=== PATIENT | female | born 1975 | race Caucasian/White ===

== ENCOUNTER 2017-08-24 21:24 | Emergency (ER) | payer MEDICAID ==
[2017-08-24] MEDS ORDERED: SODIUM CHLORIDE 0.9% 1,000 ML IV ONE (21:37)
[2017-08-24 21:54] LABS: BASOPHILS % (AUTO) 0.4 %; EOSINOPHILS # (AUTO) 0.2 10^3/uL (0.0-0.7); EOSINOPHILS % (AUTO) 1.7 %; LYMPHOCYTES # (AUTO) 2.2 10^3/uL (1.5-3.5); LYMPHOCYTES % (AUTO) 17.8 %; MEAN CORPUSCULAR HEMOGLOBIN 29.8 pg (27.0-31.0); MEAN CORPUSCULAR HGB CONC 32.2 g/dL (32.0-36.0); MEAN CORPUSCULAR VOLUME 92.6 fL (81.0-99.0); MEAN PLATELET VOLUME 7.3 fL (7.9-10.8); MONOCYTES # (AUTO) 0.8 10^3/uL (0.0-1.0); MONOCYTES % (AUTO) 6.8 %; NEUTROPHILS # (AUTO) 8.9 10^3/uL (1.5-6.6); NEUTROPHILS % (AUTO) 73.3 %; PLT - PLATELET COUNT 339 10^3/uL (130-450); RED BLOOD COUNT 4.68 10^6/uL (4.20-5.40); RED CELL DISTRIBUTION WIDTH 14.1 % (12.0-15.0); WHITE BLOOD COUNT 12.2 x10^3/uL (4.8-10.8)
--- NOTE | 2017-08-24 21:54 | ED Physician Documentation ---
PD HPI SEIZURE - Stated complaint Stated Complaint: SEIZURE - Chief complaint Chief Complaint: Neuro - History obtained from History obtained from: Patient - History of Present Illness Timing - onset: Today (ton) Witnessed: Witnessed Number of seizures: Single, Lasted - seconds Description of seizure activity: Other (no witnesses to seizure are present in ED. patient says she was told she stiffened all extremities and body , was red in the face, and unresponsive.) Injury during seizure: None Associated symptoms: None History of seizures: No: Known seizure disorder, Prior EtOH wdrawal sz, Prior TBI Contributing factors: Benzo withdrawal (possibly: patient says she takes ativan daily and just restarted today after missing several days). No: EtOH withdrawal (denies regular/heavy drinking) Similar symptoms before: Has not had sx before Recently seen: Not recently seen - Additional information Additional information: Patient was [facility], had a dose of her prescribed Vicodin earlier as well as a dose of Ativan. She said she used marijuana, Which she has used before without ill effect. patient had no predrome, awoke on the floor. patients friends told her that she appeared to have had a seizure. Patient says the description was that her body and extremities all stiffened, that she turned red in the face, and was unresponsive for approximately 30 seconds. Patient says she feels she is only missing memory of approximately one or two minutes. in Emergency department she says she feels fine except for being tired. Review of Systems Constitutional: reports: Reviewed and negative Eyes: reports: Reviewed and negative Cardiac: reports: Reviewed and negative Respiratory: reports: Reviewed and negative GI: reports: Reviewed and negative Skin: reports: Lesions (scalp (from picking, when I get anxious, per patient)) Neurologic: reports: Seizure (possible), LOC. denies: Generalized weakness, Focal weakness, Numbness, Headache PD PAST MEDICAL HISTORY - Past Medical History Past Medical History: Yes - Past Surgical History Past Surgical History: Yes HEENT: Tonsil/Adenoidectomy - Present Medications Home Medications: Ambulatory Orders Medication Instructions Recorded Confirmed Mupirocin Calcium [Bactroban] 1 film TP BID #1 cream..g. 08/25/17 - Allergies Allergies/Adverse Reactions: Allergies Allergy/AdvReac Type Severity Reaction Status Date / Time latex AdvReac Itching Verified 05/01/18 21:48 - Social History Does the pt smoke?: Yes Smoking Status: Current every day smoker Does the pt drink ETOH?: Yes Does the pt have substance abuse?: Yes Substance Use and Type: Marijuana - Immunizations Immunizations are current?: Yes - POLST Patient has POLST: No PD ED PE NORMAL - Vitals Vital signs reviewed: Yes - General General: Alert and oriented X 3, No acute distress, Well developed/nourished - HEENT HEENT: Atraumatic, PERRL, EOMI, Moist mucous membranes, Pharynx benign (no tongue bite/echymosis) - Neck Neck: Supple, no meningeal sign - Cardiac Cardiac: RRR, No murmur - Respiratory Respiratory: No respiratory distress, Clear bilaterally - Abdomen Abdomen: Soft, Non tender - Derm Derm: Normal color, Warm and dry - Extremities Extremities: No deformity, Normal ROM s pain - Neuro Neuro: Alert and oriented X 3, 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, No motor deficit, No sensory deficit, Normal speech Results - Vitals Vitals: Oxygen O2 Source Room air - EKG (time done) No standard instances Rate: Tachy (126) Rhythm: Sinus tachycardia [place]: Normal Intervals: Normal PA QRS: Normal Ischemia: Normal ST segments - Labs Labs: Laboratory Tests 08/24/17 08/24/17 08/24/17 21:47 21:47 22:55 WBC 12.2 H RBC 4.68 Hgb 14.0 Hct 43.4 MCV 92.6 MCH 29.8 MCHC 32.2 RDW 14.1 Plt Count 339 MPV 7.3 L Neut # 8.9 H Lymph # 2.2 [place] # 0.8 Eos # 0.2 Baso # 0.0 Absolute Nucleated RBC 0.00 Nucleated RBC % 0.0 Sodium 133 L Potassium 3.5 Chloride 97 L Carbon Dioxide 27 Anion Gap 9.0 BUN 10 Creatinine 0.7 Estimated GFR (MDRD) 91 Glucose 114 H Calcium 9.2 Total Bilirubin 0.2 AST 28 ALT 41 Alkaline Phosphatase 61 Total Protein 7.8 Albumin 4.5 Globulin 3.3 Albumin/Globulin Ratio 1.4 Lipase 21 L Urine Color Urine Clarity Urine pH Ur Specific [place] Urine Protein Urine Glucose (UA) Urine Ketones Urine Occult Blood Urine Nitrite Urine Bilirubin Urine Urobilinogen Ur Leukocyte Esterase Ur Microscopic Review Urine Culture Comments Urine HCG, Qual Salicylates < 6.0 Urine Opiates Screen POSITIVE H Ur Oxycodone Screen NEGATIVE Urine Methadone Screen NEGATIVE Ur Propoxyphene Screen NEGATIVE Acetaminophen < 10 L Ur Barbiturates Screen NEGATIVE Ur Tricyclics Screen NEGATIVE Ur Phencyclidine Scrn NEGATIVE Ur Amphetamine Screen NEGATIVE U Methamphetamines Scrn NEGATIVE U Benzodiazepines Scrn POSITIVE H Urine Cocaine Screen NEGATIVE U Cannabinoids Screen NEGATIVE Ethyl Alcohol < 5.0 08/24/17 22:55 WBC RBC Hgb Hct MCV MCH MCHC RDW Plt Count MPV Neut # Lymph # [place] # Eos # Baso # Absolute Nucleated RBC Nucleated RBC % Sodium Potassium Chloride Carbon Dioxide Anion Gap BUN Creatinine Estimated GFR (MDRD) Glucose Calcium Total Bilirubin AST ALT Alkaline Phosphatase Total Protein Albumin Globulin Albumin/Globulin Ratio Lipase Urine Color LT. YELLOW Urine Clarity CLEAR Urine pH 5.5 Ur Specific [place] <=1.005 Urine Protein NEGATIVE Urine Glucose (UA) NEGATIVE Urine Ketones NEGATIVE Urine Occult Blood TRACE-INTA Urine Nitrite NEGATIVE Urine Bilirubin NEGATIVE Urine Urobilinogen 0.2 (NORMAL) Ur Leukocyte Esterase NEGATIVE Ur Microscopic Review NOT INDICATED Urine Culture Comments NOT INDICATED Urine HCG, Qual NEGATIVE Salicylates Urine Opiates Screen Ur Oxycodone Screen Urine Methadone Screen Ur Propoxyphene Screen Acetaminophen Ur Barbiturates Screen Ur Tricyclics Screen Ur Phencyclidine Scrn Ur Amphetamine Screen U Methamphetamines Scrn U Benzodiazepines Scrn Urine Cocaine Screen U Cannabinoids Screen Ethyl Alcohol - Rads (name of study) CT head Radiology: Prelim report reviewed, See rad report PD MEDICAL DECISION MAKING - ED course Complexity details: reviewed results, re-evaluated patient, considered differential, d/w patient, d/w family ED course: unremarkable testing and no results that might explain tonights event. no tongue bite and rapid recovery time would suggest against a seizure (patient believes she only is missing few minutes from her memory of tonight), although her time perception could be off because of marijuana, vicodin, and ativan. no cardiac dysrhythmia on EKG or monitor. syncope also considered although no hypotension in ED. I encouraged patient to see PMD for follow-up, might benefit from EEG. Departure - Departure Disposition: 01 Home, Self Care Clinical Impression: Syncope Qualifiers: Syncope type: unspecified Qualified Code(s): R55 - Syncope and collapse Condition: Good Instructions: ED Fainting Unkn Cause, ED Seizure New Onset Unk Cause Follow-Up: Smitha Nickerson PA-C [Primary Care Provider] - (Call to arrange for next available appointment) Prescriptions: Mupirocin Calcium [Bactroban] 1 film TP BID #1 cream..g. Discharge Date/Time: 08/25/17 01:53
[2017-08-24 22:09] LABS: ALBUMIN 4.5 g/dL (3.2-5.5); ALBUMIN/GLOBULIN RATIO 1.4 (1.0-2.2); ALKALINE PHOSPHATASE 61 IU/L (42-121); ALT ALANINE AMINOTRANSFERASE 41 IU/L (10-60); AST ASPARTATE AMINOTRANSFERASE 28 IU/L (10-42); BILIRUBIN,TOTAL 0.2 mg/dL (0.2-1.0); BUN - BLOOD UREA NITROGEN 10 mg/dL (6-20); CALCIUM 9.2 mg/dL (8.5-10.3); CARBON DIOXIDE - CO2 27 mmol/L (21-32); CHLORIDE 97 mmol/L (101-111); CREATININE 0.7 mg/dL (0.4-1.0); GFR - MDRD 91 (>89); GLUCOSE 114 mg/dL (70-100); LIPASE 21 U/L (22-51); SALICYLATE < 6.0 mg/dL; SODIUM 133 mmol/L (135-145); TOTAL PROTEIN 7.8 g/dL (6.7-8.2)
[2017-08-24 22:12] LABS: ACETAMINOPHEN < 10 ug/mL (10-30)
[2017-08-24 23:03] LABS: MUDS CUTOFF CONCENTRATIONS CUTOFF CONC BELOW:
[2017-08-24 23:10] LABS: BILIRUBIN,URINE NEGATIVE (NEGATIVE); GLUCOSE, URINE (UA) NEGATIVE (NEGATIVE); KETONES,URINE (UA) NEGATIVE (NEGATIVE); LEUKOCYTE ESTERASE, URINE NEGATIVE (NEGATIVE); NITRITE,URINE NEGATIVE (NEGATIVE); OCCULT BLOOD,URINE TRACE-INTA (NEGATIVE); PH,URINE 5.5 PH (5.0-7.5); PROTEIN,URINE NEGATIVE (NEGATIVE); UROBILINOGEN,URINE 0.2 (NORMAL) E.U./dL (NORMAL)
--- NOTE | 2017-08-24 23:12 | CT Preliminary Report ---
Exam: CT HEAD W/O IMPRESSION: Normal head CT. [facility] SITE ID: [id number]
--- NOTE | 2017-08-24 23:13 | CT Report ---
EXAM: CT HEAD EXAM DATE: 08/24/2017 10:58 PM. CLINICAL HISTORY: Loss of consciousness. Seizure. COMPARISON: None. TECHNIQUE: Multiaxial CT images were obtained from the foramen magnum to the vertex. Reformats: Coron al. IV contrast: None. In accordance with CT protocol optimization, one or more of the following dose reduction techniques w ere utilized for this exam: automated exposure control, adjustment of mA and/or KV based on patient s ize, or use of iterative reconstructive technique. FINDINGS: Parenchyma: No intraparenchymal hemorrhage. No evidence of mass, midline shift, or CT findings of inf arction. Bear-white differentiation is distinct. Extraaxial Spaces: Normal for age. No subdural or epidural collections identified. Ventricles: Normal in size and position. Sinuses and Orbits: Imaged paranasal sinuses, orbits, and mastoids show no significant abnormality. Bones: No evidence of fracture or calvarial defect. Other: None. IMPRESSION: Normal head CT. [facility] Referring Provider Line: [phone] SITE ID: [id number]
[2017-08-24 23:21] LABS: CLARITY,URINE CLEAR (CLEAR); HCG UR QUAL NEGATIVE
[2017-08-24 23:29] LABS: AMPHETAMINE SCREEN,URINE NEGATIVE (NEGATIVE); COCAINE SCREEN URINE NEGATIVE (NEGATIVE); METHADONE SCREEN, URINE NEGATIVE (NEGATIVE); METHAMPHETAMINES SCREEN, URINE NEGATIVE (NEGATIVE); OXYCODONE SCREEN, URINE NEGATIVE (NEGATIVE); PROPOXYPHENE SCREEN, URINE NEGATIVE (NEGATIVE); TRICYCLIC ANTIDEPRESSANT,URINE NEGATIVE (NEGATIVE)
[2017-08-24 23:30] LABS: BENZODIAZEPINES SCREEN, URINE POSITIVE (NEGATIVE); OPIATE SCREEN, URINE POSITIVE (NEGATIVE)
[2017-08-25 01:42] VITALS: BP 112/60
== END 2017-08-25 01:53 | disposition home or self-care (01) ==
LOC: ED 21:24
DX: R55 Syncope and collapse (principal); F17.200 Nicotine dependence, unspecified, uncomplicated; F12.90 Cannabis use, unspecified, uncomplicated
CPT/HCPCS: 36415; 70450; 80053; 80306; 80307; 80320; 80329; 81001; 81003; 81025; 83690; 85025; 87086; 93005; 96360; 96361; 99283; 99284

== ENCOUNTER 2018-01-05 08:00 | Outpatient (CLI) | payer MEDICAID | END 2018-01-05 08:01 | disposition home or self-care (01) | LOC: LAB.R 08:00 | PROVIDERS: ATTEND Family Medicine | DX: R19.7 Diarrhea, unspecified (principal) | CPT/HCPCS: 81599; 82274; 83630; 87045; 87046; 87177; 87209; 87329; 87493 ==

== ENCOUNTER 2018-01-07 20:31 | Outpatient (CLI) | payer MEDICAID | END 2018-01-07 20:32 | disposition critical access hospital (66) | LOC: EMS 20:31 | PROVIDERS: ATTEND Surgery | DX: R46.4 Slowness and poor responsiveness (principal); R11.10 Vomiting, unspecified; R19.7 Diarrhea, unspecified; R05 Cough | CPT/HCPCS: A0425; A0427; A0999 ==

== ENCOUNTER 2018-01-07 20:48 | Emergency (ER) | payer MEDICAID ==
[2018-01-07] MEDS ORDERED: SODIUM CHLORIDE 0.9% 1,000 ML IV ONE ×2 (20:58→22:10)
[2018-01-07 21:22] LABS: BASOPHILS % (AUTO) 0.8 %; EOSINOPHILS # (AUTO) 0.1 10^3/uL (0.0-0.7); EOSINOPHILS % (AUTO) 1.6 %; HGB - HEMOGLOBIN 15.3 g/dL (12.0-16.0); LYMPHOCYTES # (AUTO) 1.9 10^3/uL (1.5-3.5); MEAN CORPUSCULAR HEMOGLOBIN 32.8 pg (27.0-31.0); MEAN CORPUSCULAR HGB CONC 34.2 g/dL (32.0-36.0); MEAN CORPUSCULAR VOLUME 95.8 fL (81.0-99.0); MONOCYTES # (AUTO) 0.4 10^3/uL (0.0-1.0); MONOCYTES % (AUTO) 8.6 %; NEUTROPHILS # (AUTO) 2.7 10^3/uL (1.5-6.6); PLT - PLATELET COUNT 259 10^3/uL (130-450); RED BLOOD COUNT 4.66 10^6/uL (4.20-5.40); RED CELL DISTRIBUTION WIDTH 15.3 % (12.0-15.0); WHITE BLOOD COUNT 5.2 x10^3/uL (4.8-10.8)
[2018-01-07 21:34] LABS: MUDS CUTOFF CONCENTRATIONS CUTOFF CONC BELOW:
[2018-01-07 21:37] LABS: BILIRUBIN,URINE NEGATIVE (NEGATIVE); GLUCOSE, URINE (UA) NEGATIVE (NEGATIVE); KETONES,URINE (UA) NEGATIVE (NEGATIVE); LEUKOCYTE ESTERASE, URINE NEGATIVE (NEGATIVE); NITRITE,URINE NEGATIVE (NEGATIVE); OCCULT BLOOD,URINE SMALL (NEGATIVE); PROTEIN,URINE NEGATIVE (NEGATIVE); UROBILINOGEN,URINE 0.2 (NORMAL) E.U./dL (NORMAL)
[2018-01-07 21:38] LABS: ALBUMIN 3.9 g/dL (3.2-5.5); ALBUMIN/GLOBULIN RATIO 1.2 (1.0-2.2); ALKALINE PHOSPHATASE 77 IU/L (42-121); ALT ALANINE AMINOTRANSFERASE 189 IU/L (10-60); AST ASPARTATE AMINOTRANSFERASE 177 IU/L (10-42); BILIRUBIN,TOTAL 0.3 mg/dL (0.2-1.0); BUN - BLOOD UREA NITROGEN 8 mg/dL (6-20); CALCIUM 8.8 mg/dL (8.5-10.3); CARBON DIOXIDE - CO2 23 mmol/L (21-32); CHLORIDE 101 mmol/L (101-111); CREATININE 0.9 mg/dL (0.4-1.0); GFR - MDRD 68 (>89); GLUCOSE 126 mg/dL (70-100); LIPASE 28 U/L (22-51); SALICYLATE < 6.0 mg/dL; SODIUM 137 mmol/L (135-145); TOTAL PROTEIN 7.2 g/dL (6.7-8.2)
[2018-01-07 21:43] LABS: ACETAMINOPHEN < 10 ug/mL (10-30)
[2018-01-07 21:48] LABS: CLARITY,URINE CLEAR (CLEAR)
[2018-01-07 21:49] LABS: BACTERIA,URINE None Seen /HPF (None Seen); RBC,URINE 0-5 /HPF (0-5); SQUAMOUS EPITHELIAL CELL,UR RARE Squamous (<= Few)
[2018-01-07 21:50] LABS: AMPHETAMINE SCREEN,URINE NEGATIVE (NEGATIVE); BENZODIAZEPINES SCREEN, URINE POSITIVE (NEGATIVE); COCAINE SCREEN URINE NEGATIVE (NEGATIVE); METHADONE SCREEN, URINE NEGATIVE (NEGATIVE); METHAMPHETAMINES SCREEN, URINE NEGATIVE (NEGATIVE); OPIATE SCREEN, URINE NEGATIVE (NEGATIVE); OXYCODONE SCREEN, URINE NEGATIVE (NEGATIVE); PROPOXYPHENE SCREEN, URINE NEGATIVE (NEGATIVE); TRICYCLIC ANTIDEPRESSANT,URINE NEGATIVE (NEGATIVE)
--- NOTE | 2018-01-07 22:45 | CT Report ---
Reason: ams, vomiting Procedure Date: 01/07/2018 Accession Number: [id number] / [id number] Procedure: CT - Head W/O CPT Code: FULL RESULT: EXAM: CT HEAD EXAM DATE: 01/07/2018 10:21 PM. CLINICAL HISTORY: Altered mental status. Vomiting. COMPARISON: HEAD W/O 08/24/2017. TECHNIQUE: Multiaxial CT images were obtained from the foramen magnum to the vertex. Reformats: Sagittal and coronal. IV contrast: None. In accordance with CT protocol optimization, one or more of the following dose reduction techniques were utilized for this exam: automated exposure control, adjustment of mA and/or KV based on patient size, or use of iterative reconstructive technique. FINDINGS: Parenchyma: No intraparenchymal hemorrhage. No evidence of mass, midline shift, or CT findings of infarction. Bear-white differentiation is distinct. Extraaxial Spaces: Normal for age. No subdural or epidural collections identified. Ventricles: Normal in size and position. Sinuses and Orbits: Imaged paranasal sinuses, orbits, and mastoids show no significant abnormality. Bones: No evidence of fracture or calvarial defect. Other: None. IMPRESSION: No acute or focal intracranial abnormality. [facility]
--- NOTE | 2018-01-07 22:54 | XRAY Report ---
Reason: hypoxic Procedure Date: 01/07/2018 Accession Number: [id number] / [id number] Procedure: XR - Chest 1 View X-Ray CPT Code: 63384 FULL RESULT: EXAM: CHEST RADIOGRAPHY EXAM DATE: 01/07/2018 10:32 PM. CLINICAL HISTORY: Hypoxic. Altered mental status. COMPARISON: None. TECHNIQUE: 1 view. FINDINGS: Lungs/Pleura: No focal opacities evident. No pleural effusion. No pneumothorax. Mediastinum: Within exam limitations, the cardiomediastinal contour is normal. Other: There is limited penetration due to large body habitus which limits visualization. IMPRESSION: No acute findings are seen. [facility]
--- NOTE | 2018-01-08 00:32 | ED Physician Documentation ---
PD HPI ALTERED MENTAL STATUS - Stated complaint Stated Complaint: WEAKNESS - Chief complaint Chief Complaint: Abd Pain - History obtained from History obtained from: EMS - History of Present Illness Timing - onset: Today Timing - details: Gradual onset, Still present Quality / character: Less responsive, Confused Contributing factors: Intoxicated [place] status: Alert and oriented X 3 Similar symptoms before: Has not had sx before Recently seen: Not recently seen - Additional information Additional information: Patient is a 43 year old female who is presenting to the emergency department for altered mental status. According to ems patient was found outside of her house smoking a cigarette without any pants on. The neighbors called ems. EMS saw the patient there was a questionable syncopal episode. While enroute patient had an episode of vomiting and diarrhea. Review of Systems Unable to obtain: Intoxicated PD PAST MEDICAL HISTORY - Past Surgical History Past Surgical History: Yes HEENT: Tonsil/Adenoidectomy - Present Medications Home Medications: Ambulatory Orders Medication Instructions Recorded Confirmed Mupirocin Calcium [Bactroban] 1 film TP BID #1 cream..g. 08/25/17 - Allergies Allergies/Adverse Reactions: Allergies Allergy/AdvReac Type Severity Reaction Status Date / Time latex AdvReac Itching Verified 01/07/18 20:57 - Social History Does the pt smoke?: Yes Smoking Status: Current every day smoker Does the pt drink ETOH?: Yes Does the pt have substance abuse?: Yes - Immunizations Immunizations are current?: Yes - POLST Patient has POLST: No PD ED PE NORMAL - Vitals Vital signs reviewed: Yes - HEENT HEENT: Atraumatic - Abdomen Abdomen: Soft - Extremities Extremities: No deformity PD ED PE EXPANDED - General General: Disheveled, poorly kept, Other (intoxicated but arousable) - Eyes Eyes: PERRL (equal but dilated) - Cardiac Cardiac: Tachy - Respiratory Respiratory: Decreased breath sounds, Other (poor respirtory effort) - GCS Eye Opening: To Voice Motor: Localizes to Pain Verbal: Confused Total: 12 Results - Vitals Vitals: Vital Signs - 24 hr 01/07/18 01/07/18 01/07/18 20:51 21:35 23:26 Temperature 37.1 C Heart Rate 137 H 131 H 126 H Respiratory 20 19 Rate Blood Pressure 124/96 H 136/94 H 146/83 H O2 Saturation 88 L 95 94 0901/08/18 01/08/18 00:40 01:57 03:10 Temperature Heart Rate 130 H 127 H 122 H Respiratory 16 18 18 Rate Blood Pressure 113/40 L 136/94 H 128/77 O2 Saturation 90 L 92 94 Oxygen O2 Source Room air Oxygen Flow Rate 2 - EKG (time done) 2105 Rate: Rate (enter#) (136) Rhythm: Sinus tachycardia [place]: Normal Intervals: Normal CT QRS: Normal - Labs Labs: Laboratory Tests 01/07/18 01/07/18 01/07/18 21:15 21:15 21:15 WBC 5.2 RBC 4.66 Hgb 15.3 Hct 44.6 MCV 95.8 MCH 32.8 H MCHC 34.2 RDW 15.3 H Plt Count 259 MPV 7.0 L Neut # (Auto) 2.7 Lymph # (Auto) 1.9 [place] # (Auto) 0.4 Eos # (Auto) 0.1 Baso # (Auto) 0.0 Absolute Nucleated RBC 0.00 Nucleated RBC % 0.0 Sodium 137 Potassium 3.8 Chloride 101 Carbon Dioxide 23 Anion Gap 13.0 BUN 8 Creatinine 0.9 Estimated GFR (MDRD) 68 L Glucose 126 H Lactic Acid Calcium 8.8 Total Bilirubin 0.3 AST 177 H ALT 189 H Alkaline Phosphatase 77 Troponin I < 0.04 Total Protein 7.2 Albumin 3.9 Globulin 3.3 Albumin/Globulin Ratio 1.2 Lipase 28 TSH Urine Color Urine Clarity Urine pH Ur Specific [place] Urine Protein Urine Glucose (UA) Urine Ketones Urine Occult Blood Urine Nitrite Urine Bilirubin Urine Urobilinogen Ur Leukocyte Esterase Urine RBC Urine WBC Ur Squamous Epith Cells Urine Bacteria Ur Microscopic Review Urine Culture Comments Salicylates < 6.0 Urine Opiates Screen Ur Oxycodone Screen Urine Methadone Screen Ur Propoxyphene Screen Acetaminophen < 10 L Ur Barbiturates Screen Ur Tricyclics Screen Ur Phencyclidine Scrn Ur Amphetamine Screen U Methamphetamines Scrn U Benzodiazepines Scrn Urine Cocaine Screen U Cannabinoids Screen Ethyl Alcohol 334.3 01/07/18 01/07/18 01/07/18 21:15 21:15 21:25 WBC RBC Hgb Hct MCV MCH MCHC RDW Plt Count MPV Neut # (Auto) Lymph # (Auto) [place] # (Auto) Eos # (Auto) Baso # (Auto) Absolute Nucleated RBC Nucleated RBC % Sodium Potassium Chloride Carbon Dioxide Anion Gap BUN Creatinine Estimated GFR (MDRD) Glucose Lactic Acid 3.7 H* Calcium Total Bilirubin AST ALT Alkaline Phosphatase Troponin I Total Protein Albumin Globulin Albumin/Globulin Ratio Lipase TSH 1.05 Urine Color YELLOW Urine Clarity CLEAR Urine pH 6.0 Ur Specific [place] <=1.005 Urine Protein NEGATIVE Urine Glucose (UA) NEGATIVE Urine Ketones NEGATIVE Urine Occult Blood SMALL H Urine Nitrite NEGATIVE Urine Bilirubin NEGATIVE Urine Urobilinogen 0.2 (NORMAL) Ur Leukocyte Esterase NEGATIVE Urine RBC 0-5 Urine WBC 0-3 Ur Squamous Epith Cells RARE Squamous Urine Bacteria None Seen Ur Microscopic Review INDICATED Urine Culture Comments NOT INDICATED Salicylates Urine Opiates Screen NEGATIVE Ur Oxycodone Screen NEGATIVE Urine Methadone Screen NEGATIVE Ur Propoxyphene Screen NEGATIVE Acetaminophen Ur Barbiturates Screen NEGATIVE Ur Tricyclics Screen NEGATIVE Ur Phencyclidine Scrn NEGATIVE Ur Amphetamine Screen NEGATIVE U Methamphetamines Scrn NEGATIVE U Benzodiazepines Scrn POSITIVE H Urine Cocaine Screen NEGATIVE U Cannabinoids Screen NEGATIVE Ethyl Alcohol 01/08/18 00:33 WBC RBC Hgb Hct MCV MCH MCHC RDW Plt Count MPV Neut # (Auto) Lymph # (Auto) [place] # (Auto) Eos # (Auto) Baso # (Auto) Absolute Nucleated RBC Nucleated RBC % Sodium Potassium Chloride Carbon Dioxide Anion Gap BUN Creatinine Estimated GFR (MDRD) Glucose Lactic Acid 2.7 H Calcium Total Bilirubin AST ALT Alkaline Phosphatase Troponin I Total Protein Albumin Globulin Albumin/Globulin Ratio Lipase TSH Urine Color Urine Clarity Urine pH Ur Specific [place] Urine Protein Urine Glucose (UA) Urine Ketones Urine Occult Blood Urine Nitrite Urine Bilirubin Urine Urobilinogen Ur Leukocyte Esterase Urine RBC Urine WBC Ur Squamous Epith Cells Urine Bacteria Ur Microscopic Review Urine Culture Comments Salicylates Urine Opiates Screen Ur Oxycodone Screen Urine Methadone Screen Ur Propoxyphene Screen Acetaminophen Ur Barbiturates Screen Ur Tricyclics Screen Ur Phencyclidine Scrn Ur Amphetamine Screen U Methamphetamines Scrn U Benzodiazepines Scrn Urine Cocaine Screen U Cannabinoids Screen Ethyl Alcohol - Rads (name of study) ct head Radiology: Final report received (no acute findings ) chest x-ray Radiology: Final report received (normal) PD MEDICAL DECISION MAKING - ED course Complexity details: reviewed old records, reviewed results, re-evaluated patient, considered differential, d/w patient ED course: Patient was seen and examined at bedside. IV access was gained and patient was started on a fluid bolus. ekg was performed and showed sinus tach. labs were drawn which showed lactic acidosis and elevated etoh. chest x-ray and ct head were performed. Imaging was within normal limits. Patient was treated with a second liter of fluids. patient's tachycardia and lactic acid improved. patient was observed for over 6 hrs in the emergency department. patient became more coherent. Patient denied sympathomimetic use but she fit the toxidrome. patient stated that she wanted to leave. patient was awake, alert and oriented. patient was able to ambulate without difficulty and attend to conversation. Patient was persistently tachycardic and patient signed out against medical a dvice. - Sepsis Event Vital Signs: Vital Signs - 24 hr 01/07/18 01/07/18 01/07/18 20:51 21:35 23:26 Temperature 37.1 C Heart Rate 137 H 131 H 126 H Respiratory 20 19 Rate Blood Pressure 124/96 H 136/94 H 146/83 H O2 Saturation 88 L 95 94 01/08/18 01/08/18 01/08/18 00:40 01:57 03:10 Temperature Heart Rate 130 H 127 H 122 H Respiratory 16 18 18 Rate Blood Pressure 113/40 L 136/94 H 128/77 O2 Saturation 90 L 92 94 Oxygen O2 Source Room air Oxygen Flow Rate 2 Departure - Departure Disposition: Against Medical Advice Clinical Impression: Alcohol intoxication Condition: Stable Instructions: ED Alcohol Intoxication Follow-Up: primary,care provider [Other] Comments: Your symptoms today are at least in part being caused by alcohol intoxication. You should refrain from alcohol and other drug abuse. You should try to stay well hydrated. You should follow up with your doctor if your symptoms persist. You may return to the emergency department at any time for new, worsening or uncontrollable symptoms. Discharge Date/Time: 01/08/18 03:17
[2018-01-08 03:11] VITALS: BP 128/77
== END 2018-01-08 03:17 | disposition left against medical advice (07) ==
LOC: EDUNIT# → ED 20:48
DX: F10.120 Alcohol abuse with intoxication, uncomplicated (principal); R00.0 Tachycardia, unspecified; F17.200 Nicotine dependence, unspecified, uncomplicated; Z53.20 Procedure and treatment not carried out because of patient's decision for unspecified reasons
CPT/HCPCS: 36415; 51701; 70450; 71045; 80053; 80306; 80307; 80320; 80329; 81001; 81003; 83605; 83690; 84443; 84484; 85025; 87040; 87086; 93005; 96360; 96361; 99284

== ENCOUNTER 2018-01-28 14:04 | Outpatient (CLI) | payer MEDICAID ==
[2018-01-28 19:31] LABS: ALBUMIN 4.7 g/dL (3.2-5.5); ALBUMIN/GLOBULIN RATIO 1.5 (1.0-2.2); BASOPHILS % (AUTO) 0.3 %; BILIRUBIN,TOTAL 0.9 mg/dL (0.2-1.0); CALCIUM 9.7 mg/dL (8.5-10.3); CREATININE 1.1 mg/dL (0.4-1.0); EOSINOPHILS % (AUTO) 0.3 %; LYMPHOCYTES # (AUTO) 0.8 10^3/uL (1.5-3.5); LYMPHOCYTES % (AUTO) 7.1 %; MEAN CORPUSCULAR HEMOGLOBIN 32.2 pg (27.0-31.0); MEAN CORPUSCULAR HGB CONC 33.7 g/dL (32.0-36.0); MEAN CORPUSCULAR VOLUME 95.5 fL (81.0-99.0); MEAN PLATELET VOLUME 8.5 fL (7.9-10.8); MONOCYTES # (AUTO) 0.8 10^3/uL (0.0-1.0); MONOCYTES % (AUTO) 7.1 %; NEUTROPHILS # (AUTO) 9.8 10^3/uL (1.5-6.6); NEUTROPHILS % (AUTO) 85.2 %; PLT - PLATELET COUNT 201 10^3/uL (130-450); RED BLOOD COUNT 4.97 10^6/uL (4.20-5.40); RED CELL DISTRIBUTION WIDTH 14.7 % (12.0-15.0); TOTAL PROTEIN 7.8 g/dL (6.7-8.2); WHITE BLOOD COUNT 11.5 x10^3/uL (4.8-10.8)
[2018-01-28 20:05] LABS: PLATELET MORPHOLOGY PLATELET CLUMPING (NORMAL)
[2018-01-28 20:08] LABS: PLATELET ESTIMATE, MANUAL NORMAL (130-450,000) (NORMAL)
[2018-01-28 20:09] LABS: RBC MORPHOLOGY (MULTIPLE) NORMAL APPEARANCE (NORMAL)
== END 2018-01-28 14:05 | disposition home or self-care (01) ==
LOC: LAB.WCP 14:04
PROVIDERS: ATTEND Family Medicine
DX: K52.9 Noninfective gastroenteritis and colitis, unspecified (principal); R10.9 Unspecified abdominal pain
CPT/HCPCS: 36415; 80053; 85025

== ENCOUNTER 2018-02-01 08:00 | Outpatient (CLI) | payer MEDICAID ==
[2018-02-01 19:05] LABS: BASOPHILS % (AUTO) 0.4 %; EOSINOPHILS % (AUTO) 0.5 %; HGB - HEMOGLOBIN 15.6 g/dL (12.0-16.0); LYMPHOCYTES # (AUTO) 1.6 10^3/uL (1.5-3.5); LYMPHOCYTES % (AUTO) 21.3 %; MEAN CORPUSCULAR HEMOGLOBIN 32.2 pg (27.0-31.0); MEAN CORPUSCULAR HGB CONC 33.8 g/dL (32.0-36.0); MEAN CORPUSCULAR VOLUME 95.3 fL (81.0-99.0); MEAN PLATELET VOLUME 7.8 fL (7.9-10.8); MONOCYTES # (AUTO) 0.8 10^3/uL (0.0-1.0); MONOCYTES % (AUTO) 10.1 %; NEUTROPHILS # (AUTO) 5.1 10^3/uL (1.5-6.6); NEUTROPHILS % (AUTO) 67.7 %; PLT - PLATELET COUNT 272 10^3/uL (130-450); RED BLOOD COUNT 4.83 10^6/uL (4.20-5.40); RED CELL DISTRIBUTION WIDTH 14.7 % (12.0-15.0); WHITE BLOOD COUNT 7.6 x10^3/uL (4.8-10.8)
[2018-02-01 19:25] LABS: ALBUMIN 4.2 g/dL (3.2-5.5); ALBUMIN/GLOBULIN RATIO 1.2 (1.0-2.2); BILIRUBIN,TOTAL 0.6 mg/dL (0.2-1.0); CALCIUM 9.6 mg/dL (8.5-10.3); CREATININE 0.9 mg/dL (0.4-1.0); TOTAL PROTEIN 7.6 g/dL (6.7-8.2)
[2018-02-02 12:52] LABS: HEPATITIS A IGM NON-REACTIVE (NON-REACTIVE); HEPATITIS B CORE ANTIBODY IGM NON-REACTIVE (NON-REACTIVE); HEPATITIS B SURFACE ANTIGEN NON-REACTIVE (NON-REACTIVE); HEPATITIS C ANTIBODY NON-REACTIVE (NON-REACTIVE)
== END 2018-02-01 08:01 ==
LOC: LAB.WCP 08:00
PROVIDERS: ATTEND Family Medicine
DX: R10.9 Unspecified abdominal pain (principal); R79.89 Other specified abnormal findings of blood chemistry
CPT/HCPCS: 36415; 80053; 80074; 82150; 83690; 85025

== ENCOUNTER 2018-02-25 09:14 | Outpatient (CLI) | payer MEDICAID ==
[2018-02-25] MEDS ORDERED: IOPAMIDOL-300 50 ML VIAL ONE (09:56)
[2018-02-25] MEDS ORDERED: IOPAMIDOL-300 100 ML VIAL ONE (09:56)
[2018-02-25] MEDS ORDERED: IOPAMIDOL-370 100 ML VIAL ONE (10:58)
--- NOTE | 2018-02-25 13:15 | CT Report ---
Reason: ELEVATED LFTS, ABDOMINAL PAIN Procedure Date: 02/25/2018 Accession Number: [id number] / [id number] Procedure: CT - Abdomen/Pelvis W/ CPT Code: FULL RESULT: EXAM: CT ABDOMEN AND PELVIS EXAM DATE: 02/25/2018 11:07 AM. CLINICAL HISTORY: ELEVATED LFTS, ABDOMINAL PAIN. COMPARISONS: None. TECHNIQUE: Routine helical CT imaging was performed through the abdomen and pelvis. IV contrast: ISOVUE 300 100mL. Enteric contrast: No. Reconstructions: Coronal and sagittal. In accordance with CT protocol optimization, one or more of the following dose reduction techniques were utilized for this exam: automated exposure control, adjustment of mA and/or KV based on patient size, or use of iterative reconstructive technique. FINDINGS: Lung Bases: Unremarkable. Liver: Marked hepatic steatosis and hepatomegaly. Gallbladder/Bile Ducts: Unremarkable. Spleen: Normal. Pancreas: Normal. Adrenal Glands: Normal. Kidneys: Normal. No masses or hydronephrosis. Peritoneal Cavity/Bowel: Intramural fat is seen within the rectosigmoid colonic wall, which is nonspecific, but can as seen as a sequela of inflammatory bowel disease. Additionally, there is subtle prominence of colonic wall thickness, often overestimated on CT. No free fluid, free air or adenopathy. No masses or acute inflammatory process. Pelvic Organs: Normal. The bladder and visualized pelvic organs are within normal limits. Vasculature: No aneurysms or other significant abnormality. Bones: No significant abnormality. Other: None. IMPRESSION: Hepatic steatosis and hepatomegaly. Subtle rectosigmoid colonic wall fat is a nonspecific finding. Questionable colonic wall thickening without evidence of acute inflammation. If the patient has bowel symptoms, consider correlation to colonoscopy of the rectosigmoid colon to evaluate for inflammatory bowel disease. [facility]
[2018-02-25] MEDS ORDERED: IOPAMIDOL-300 50 ML VIAL PO ONE (15:58)
[2018-02-25] MEDS ORDERED: IOPAMIDOL-300 100 ML VIAL IVP ONE (15:58)
== END 2018-02-25 09:15 | disposition home or self-care (01) ==
LOC: DI 09:14
PROVIDERS: ATTEND Family Medicine
DX: K76.0 Fatty (change of) liver, not elsewhere classified (principal); R10.9 Unspecified abdominal pain; R79.89 Other specified abnormal findings of blood chemistry
CPT/HCPCS: 74177; Q9967

== ENCOUNTER 2018-04-02 15:34 | Outpatient (CLI) | payer MEDICAID | END 2018-04-02 15:35 | disposition critical access hospital (66) | LOC: EMS 15:34 | PROVIDERS: ATTEND Surgery | DX: F41.9 Anxiety disorder, unspecified (principal) | CPT/HCPCS: A0425; A0429; A0999 ==

== ENCOUNTER 2018-04-02 15:52 | Emergency (ER) | payer MEDICAID ==
[2018-04-02] MEDS ORDERED: LORazepam 2 MG/ML VIAL IM STA (16:14)
--- NOTE | 2018-04-02 16:22 | ED Physician Documentation ---
PD HPI MHE - Stated complaint Stated Complaint: ANXIETY - Chief complaint Chief Complaint: MHE - History obtained from History obtained from: Patient, EMS - History of Present Illness Primary symptom: Anxiety Timing - onset: How many days ago (3) Pain level max: 0 Pain level now: 0 Contributing factors: Substance abuse - ETOH (states last etoh 1 month ago), Off meds (last ativan 2 weeks ago) Similar symptoms before: Diagnosis (anxiety, depression) Recently seen: Not recently seen Review of Systems Ten Systems: 10 systems reviewed and negative Constitutional: denies: Fever, Chills Ears: denies: Ear pain Nose: denies: Rhinorrhea / runny nose, Congestion Cardiac: denies: Chest pain / pressure Respiratory: denies: Cough GI: denies: Abdominal Pain, Nausea, Vomiting, Diarrhea Skin: denies: Rash Musculoskeletal: denies: Neck pain, Back pain Neurologic: denies: Headache Psychiatric: reports: Anxiety. denies: Suicidal, Homicidal, Hallucinations, Delusions, Insomnia PD PAST MEDICAL HISTORY - Past Medical History Past Medical History: Yes Psych: Depression, Anxiety - Past Surgical History Past Surgical History: Yes HEENT: Tonsil/Adenoidectomy - Present Medications Home Medications: Ambulatory Orders Medication Instructions Recorded Confirmed Mupirocin Calcium [Bactroban] 1 film TP BID #1 cream..g. 08/25/17 - Allergies Allergies/Adverse Reactions: Allergies Allergy/AdvReac Type Severity Reaction Status Date / Time latex AdvReac Itching Verified 04/02/18 15:56 - Social History Does the pt smoke?: Yes Smoking Status: Current every day smoker Does the pt drink ETOH?: Yes Does the pt have substance abuse?: Yes - Immunizations Immunizations are current?: Yes - POLST Patient has POLST: No PD ED PE NORMAL - Vitals Vital signs reviewed: Yes - General General: Alert and oriented X 3, Well developed/nourished, Other (tearful, anxious) - HEENT HEENT: PERRL - Neck Neck: Supple, no meningeal sign - Cardiac Cardiac: Other (tachycardic) - Respiratory Respiratory: No respiratory distress, Clear bilaterally - Abdomen Abdomen: Soft, Non tender, Non distended - Derm Derm: Warm and dry - Extremities Extremities: No edema, No calf tenderness / cord - Neuro Neuro: Alert and oriented X 3 - Psych Psych: Normal mood, Normal affect Results - Vitals Vitals: Vital Signs - 24 hr 04/02/18 04/02/18 04/02/18 15:57 19:22 19:24 Temperature 36.7 C 37.0 C 37.0 C Heart Rate 140 H 143 H 143 H Respiratory 16 18 18 Rate Blood Pressure 153/99 H 157/108 H 157/108 H O2 Saturation 98 100 100 Oxygen O2 Source Room air - EKG (time done) 1609 Rate: Rate (enter#) (136) Rhythm: Sinus tachycardia [place]: Normal Intervals: Normal [place] QRS: Normal Ischemia: Normal ST segments PD MEDICAL DECISION MAKING - ED course Complexity details: reviewed results, re-evaluated patient, considered differential, d/w patient ED course: Patient is a 43-year-old female who presents stating she is having a panic attack. Given Ativan and Xanax. She feels better but is still tachycardic. I recommended further workup and evaluation. At that point she stated she does not want any further evaluation and does not want any further testing. She decided to leave AGAINST MEDICAL ADVICE. She has clear understanding of the r isks. She is counseled that she is welcome to return at any time. This document was made in part using voice recognition software. While efforts are made to proofread this document, sound alike and grammatical errors may occur. Departure - Departure Disposition: 07 Against Medical Advice Clinical Impression: Tachycardia, Anxiety Condition: Stable Instructions: ED Panic Attack Follow-Up: Bobo Sun MD [Primary Care Provider] - Within 3 Days Comments: You are welcome to return at any time should your change your mind about further evaluation for your symptoms. You have decline further testing and workup for any emergency conditions at this time. Discharge Date/Time: 04/02/18 19:24
[2018-04-02] MEDS ORDERED: ALPRAZolam 0.25 MG TABLET PO STA (17:14)
[2018-04-02 19:22] VITALS: BP 157/108
== END 2018-04-02 19:24 | disposition left against medical advice (07) ==
LOC: EDUNIT# → ED 15:52
DX: R00.0 Tachycardia, unspecified (principal); F41.9 Anxiety disorder, unspecified; F17.200 Nicotine dependence, unspecified, uncomplicated
CPT/HCPCS: 93005; 96372; 99283; A9270; J2060

== ENCOUNTER 2018-06-01 19:13 | Emergency (ER) | payer MEDICAID ==
[2018-06-01 20:06] LABS: BASOPHILS # (AUTO) 0.1 10^3/uL (0.0-0.1); BASOPHILS % (AUTO) 0.6 %; EOSINOPHILS # (AUTO) 0.2 10^3/uL (0.0-0.7); EOSINOPHILS % (AUTO) 1.8 %; HGB - HEMOGLOBIN 15.5 g/dL (12.0-16.0); LYMPHOCYTES % (AUTO) 21.6 %; MEAN CORPUSCULAR HGB CONC 33.4 g/dL (32.0-36.0); MEAN CORPUSCULAR VOLUME 95.8 fL (81.0-99.0); MEAN PLATELET VOLUME 7.9 fL (7.9-10.8); MONOCYTES # (AUTO) 0.7 10^3/uL (0.0-1.0); MONOCYTES % (AUTO) 7.6 %; NEUTROPHILS # (AUTO) 6.4 10^3/uL (1.5-6.6); NEUTROPHILS % (AUTO) 68.4 %; PLT - PLATELET COUNT 296 10^3/uL (130-450); RED BLOOD COUNT 4.83 10^6/uL (4.20-5.40); WHITE BLOOD COUNT 9.3 x10^3/uL (4.8-10.8)
[2018-06-01 20:18] LABS: BUN - BLOOD UREA NITROGEN 11 mg/dL (6-20); CALCIUM 9.7 mg/dL (8.5-10.3); CARBON DIOXIDE - CO2 24 mmol/L (21-32); CHLORIDE 97 mmol/L (101-111); CREATININE 0.8 mg/dL (0.4-1.0); GFR - MDRD 78 (>89); GLUCOSE 116 mg/dL (70-100); SODIUM 135 mmol/L (135-145)
[2018-06-01 20:55] LABS: MUDS CUTOFF CONCENTRATIONS CUTOFF CONC BELOW:
[2018-06-01 21:02] LABS: HCG UR QUAL NEGATIVE
[2018-06-01 21:11] LABS: AMPHETAMINE SCREEN,URINE NEGATIVE (NEGATIVE); BENZODIAZEPINES SCREEN, URINE NEGATIVE (NEGATIVE); COCAINE SCREEN URINE NEGATIVE (NEGATIVE); METHADONE SCREEN, URINE NEGATIVE (NEGATIVE); METHAMPHETAMINES SCREEN, URINE NEGATIVE (NEGATIVE); OPIATE SCREEN, URINE NEGATIVE (NEGATIVE); OXYCODONE SCREEN, URINE NEGATIVE (NEGATIVE); PROPOXYPHENE SCREEN, URINE NEGATIVE (NEGATIVE); TRICYCLIC ANTIDEPRESSANT,URINE NEGATIVE (NEGATIVE)
--- NOTE | 2018-06-01 22:22 | ED Physician Documentation ---
PD HPI MHE - Stated complaint Stated Complaint: MHE - Chief complaint Chief Complaint: MHE - History obtained from History obtained from: Patient - History of Present Illness Primary symptom: Depression, Anxiety Timing - onset: Other (several weeks/months, but worse past week) Pain level now: 0 Recently seen: Not recently seen - Additional information Additional information: c/o months of increasing depression, anxiety. she describes compulsive behaviors (such as having to arrange furniture and curtains until they are just exactly right). she has been attending gnosticism with increasing frequency due to feeling guilty over what she feels are past sins, and she has increasingly frequent voices accusing her of being a bad person. Although she says it is her voice and not others, she feels the thoughts are intrusive and unwanted. Review of Systems Constitutional: reports: Reviewed and negative Cardiac: reports: Reviewed and negative Respiratory: reports: Reviewed and negative GI: reports: Reviewed and negative Psychiatric: reports: Depressed, Anxiety, Insomnia. denies: Suicidal, Homicidal, Hallucinations PD PAST MEDICAL HISTORY - Past Medical History Psych: Depression, Anxiety - Past Surgical History Past Surgical History: Yes HEENT: Tonsil/Adenoidectomy - Present Medications Home Medications: Ambulatory Orders Medication Instructions Recorded Confirmed Mupirocin Calcium [Bactroban] 1 film TP BID #1 cream..g. 08/25/17 LORazepam [Lorazepam] 1 mg PO Q8HR PRN #14 tablet 06/02/18 - Allergies Allergies/Adverse Reactions: Allergies Allergy/AdvReac Type Severity Reaction Status Date / Time latex AdvReac Itching Verified 06/01/18 19:37 - Social History Does the pt smoke?: Yes Smoking Status: Current every day smoker Does the pt drink ETOH?: Yes Does the pt have substance abuse?: Yes - Immunizations Immunizations are current?: Yes - POLST Patient has POLST: No PD ED PE NORMAL - Vitals Vital signs reviewed: Yes - General General: Alert and oriented X 3, No acute distress, Well developed/nourished - Cardiac Cardiac: RRR, No murmur - Respiratory Respiratory: No respiratory distress, Clear bilaterally - Derm Derm: Normal color, Warm and dry - Neuro Neuro: Alert and oriented X 3 PD ED PE EXPANDED - Psych Psych: Depressed, Tearful, Anxious Results - Vitals Vitals: Vital Signs - 24 hr 06/01/18 06/01/18 06/01/18 19:37 20:52 22:41 Temperature 36.0 C L Heart Rate 120 H 98 Respiratory 18 18 Rate Blood Pressure 134/85 H 128/86 H O2 Saturation 97 97 06/01/18 06/02/18 06/02/18 22:55 00:30 02:07 Temperature 36.5 C Heart Rate 76 76 76 Respiratory 16 15 18 Rate Blood Pressure 134/85 H 130/80 128/72 O2 Saturation 98 100 98 Oxygen O2 Source Room air - Labs Labs: Laboratory Tests 06/01/18 06/01/18 06/01/18 20:01 20:01 20:50 WBC 9.3 RBC 4.83 Hgb 15.5 Hct 46.3 MCV 95.8 MCH 32.0 H MCHC 33.4 RDW 13.0 Plt Count 296 MPV 7.9 Neut # (Auto) 6.4 Lymph # (Auto) 2.0 [place] # (Auto) 0.7 Eos # (Auto) 0.2 Baso # (Auto) 0.1 Absolute Nucleated RBC 0.00 Nucleated RBC % 0.0 Sodium 135 Potassium 3.7 Chloride 97 L Carbon Dioxide 24 Anion Gap 14.0 H BUN 11 Creatinine 0.8 Estimated GFR (MDRD) 78 L Glucose 116 H Calcium 9.7 Ur Specific [place] Urine HCG, Qual Urine Opiates Screen NEGATIVE Ur Oxycodone Screen NEGATIVE Urine Methadone Screen NEGATIVE Ur Propoxyphene Screen NEGATIVE Ur Barbiturates Screen NEGATIVE Ur Tricyclics Screen NEGATIVE Ur Phencyclidine Scrn NEGATIVE Ur Amphetamine Screen NEGATIVE U Methamphetamines Scrn NEGATIVE U Benzodiazepines Scrn NEGATIVE Urine Cocaine Screen NEGATIVE U Cannabinoids Screen NEGATIVE Ethyl Alcohol < 5.0 06/01/18 20:50 WBC RBC Hgb Hct MCV MCH MCHC RDW Plt Count MPV Neut # (Auto) Lymph # (Auto) [place] # (Auto) Eos # (Auto) Baso # (Auto) Absolute Nucleated RBC Nucleated RBC % Sodium Potassium Chloride Carbon Dioxide Anion Gap BUN Creatinine Estimated GFR (MDRD) Glucose Calcium Ur Specific [place] 1.025 Urine HCG, Qual NEGATIVE Urine Opiates Screen Ur Oxycodone Screen Urine Methadone Screen Ur Propoxyphene Screen Ur Barbiturates Screen Ur Tricyclics Screen Ur Phencyclidine Scrn Ur Amphetamine Screen U Methamphetamines Scrn U Benzodiazepines Scrn Urine Cocaine Screen U Cannabinoids Screen Ethyl Alcohol PD MEDICAL DECISION MAKING - ED course Complexity details: reviewed old records, reviewed results, re-evaluated patient, considered differential, d/w patient, d/w family ED course: telepsych consult obtained, recommend increase celexa and add short course of prn lorazepam. as patient does not know her celexa dose, she is to talk to her prescribing practitioner when she meets with them tomorrow Departure - Departure Disposition: 01 Home, Self Care Clinical Impression: Anxiety Condition: Good Instructions: ED Stress React Follow-Up: Bobo Sun MD [Primary Care Provider] - Prescriptions: LORazepam [Lorazepam] 1 mg PO Q8HR PRN #14 tablet PRN Reason: Anxiety Comments: As discussed, the psychiatrist recommends an increase in your dose of Celexa. Since you do not know your current dose, you can discuss such an increase with your prescribing doctor on Wednesday. Discharge Date/Time: 06/02/18 02:08
[2018-06-02] MEDS: LORazepam 0.5 MG TABLET PO STA (02:01)
[2018-06-02 02:08] VITALS: BP 128/72
--- NOTE | 2018-06-02 02:08 | TELEPSYCH PHYS NOTE ---
Telepsych Note - CHIEF COMPLAINT/HX OF PRESENT ILLNESS Cheif Complaint and History of Present Illness: Chief Complaint: "anxiety." HPI: The patient is a 43-year-old female with a history of anxiety and depression. She reports to the hospital complaining of worsening depressed mood and severe anxiety. She states that she hears voices calling her names. She feels that she is committing sins and she has been spending hours a day praying. The patient reports that she sleeps 7-8 hours a night and is eating appropriately. 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 The patient lives with her mother and she feels like a burden as she has had to rely on the mother for the past year for money and care. The patient does not believe she is hearing voices. She says that she hears "herself talking to herself." She denies suicidal thoughts. Collateral was obtained from the aunt who was there for the session. The aunt does not feel the patient is a risk to herself but does feel that she needs help with her depression and anxiety. - VIOLENCE/LEGAL/COLLATERAL Violence - Legal - Collateral: Violence: none Legal: none Collateral: see HPI - PSYCHIATRIC HX/TREATMENT HX Psychiatric: Depression, Anxiety Psychiatric/Treatment Hx Other: no prior inpatient admissions, Prescribed Celexa (patient is not sure if she takes 10 mg, 15 mg, or 20 mg), sees a therapist as well - DRUG/ALCOHOL HX Substance use/abuse/alcohol text: alcohol-Daily for 3-4 weeks but stopped drinking one month ago - MEDICAL HX Does the pt have a hx of MRSA?: No - HOME MEDICATIONS Home Meds (as last confirmed): Celexa-dose unknown - ALLERGIES Allergies (as last confirmed): Allergies Allergy/AdvReac Type Severity Reaction Status Date / Time latex AdvReac Itching Verified 06/01/18 19:37 - FAMILY PSYCH/SUICIDE/SOCIAL HX-MENTAL Family - Suicide - Social Hx and Mental Status Exam: Family Psychiatric History: Mother/grandmother-Anxiety Social History: lives with mother 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 History: none Abuse: none Mental Status Examination: Attitude and behavior: cooperative Speech: WNL Affect and mood: sad affect and anxious mood Association and thought processes: linear Thought content: no delusions, no SI, no HI Perception: no hallucinations Sensorium, memory, and orientation: AAOx3 Intellectual functioning: average Insight and judgment: poor - PATIENT PROBLEM LIST (1) Anxiety disorder, unspecified Impression: The patient is a 43-year-old female with a history of depression and anxiety. She reports worsening mood symptoms and anxiety with numerous stressors including financial and relationship with mother. The patient is not dangerous to self. She denies suicidal thoughts, homicidal thoughts. Outpatient care recommended. - TREATMENT/PHARMACOLOGICAL RECOMMENDATION Treatment - Pharmacological - Therapy Recommendations: Patient unsure of dose of Celexa. She is scheduled to see her prescriber tomorrow. Patient will talk with provider about increasing dose of Celexa. Patient will be released from ER with prescription for Ativan 1 mg TID PRN anxiety. Patient will follow-up with prescriber regarding Ativan - TIME SPENT & PROVIDER LOCATION Telepsych consultation conducted via videoconferencing: Yes List names and roles of persons who participated in consult: Shawn Abreu MD. telepsychiatry Telepsych Provider Location: [place] Time Telepsych consult began: 04:00 Time Telepsych consult completed: 04:30
== END 2018-06-02 02:08 | disposition home or self-care (01) ==
LOC: ED 19:13
DX: F41.9 Anxiety disorder, unspecified (principal); F32.9 Major depressive disorder, single episode, unspecified; F17.200 Nicotine dependence, unspecified, uncomplicated; Z81.8 Family history of other mental and behavioral disorders
CPT/HCPCS: 36415; 80048; 80306; 80320; 81025; 85025; 99283

== ENCOUNTER 2018-06-12 15:04 | Emergency (ER) | payer MEDICAID ==
--- NOTE | 2018-06-12 16:02 | ED Physician Documentation ---
PD HPI MHE - Stated complaint Stated Complaint: SI - Chief complaint Chief Complaint: MHE - History obtained from History obtained from: Patient - History of Present Illness Primary symptom: Psychosis (Still having intrusive thoughts and voices, despite recents meds added at Psych facility.), Depression, Anxiety. No: Suicidal ideation Timing - onset: How many days ago (2 days of more bothersome symptoms. She thinks was perhaps just as much in the facility but felt more protected. Discharged 2 days ago and more bothered by the symptoms and feeling more anxious due to that.) Contributing factors: No: Substance abuse - ETOH, Substance abuse - drugs Recently seen: Admitted (just released from Psych facility 2 days ago after several day voluntary stay.) Review of Systems Constitutional: denies: Fever, Chills Nose: denies: Rhinorrhea / runny nose, Congestion Throat: denies: Sore throat Respiratory: denies: Cough GI: denies: Abdominal Pain, Nausea, Vomiting Neurologic: denies: Focal weakness, Numbness, Altered mental status, Headache Psychiatric: reports: Depressed, Anxiety, Insomnia. 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 : None HEENT: None Psych: Depression, Anxiety Musculoskeletal: None Derm: None - Past Surgical History Past Surgical History: Yes HEENT: Tonsil/Adenoidectomy - Present Medications Home Medications: Ambulatory Orders Medication Instructions Recorded Confirmed Gabapentin 1 tab PO BID 06/12/18 06/12/18 Hydroxyzine Pamoate [Vistaril] 1 tab PO BID PRN 06/12/18 06/12/18 LORazepam [Ativan] 1 mg PO BID #10 tablet 06/12/18 Omeprazole 1 tab PO DAILY 06/12/18 06/12/18 Risperidone [Risperdal] 1 tab PO BID 06/12/18 06/12/18 Sucralfate [Carafate] 1 tab PO BID 06/12/18 06/12/18 Venlafaxine HCl [Effexor Xr] 1 tab PO DAILY 06/12/18 06/12/18 traZODone [Desyrel] 1 tab PO QPM PRN 06/12/18 06/12/18 - Allergies Allergies/Adverse Reactions: Allergies Allergy/AdvReac Type Severity Reaction Status Date / Time latex AdvReac Itching Verified 06/12/18 15:11 - Social History Does the pt smoke?: Yes Smoking Status: Current every day smoker Does the pt drink ETOH?: Yes Does the pt have substance abuse?: Yes - Immunizations Immunizations are current?: Yes - POLST Patient has POLST: No PD ED PE NORMAL - Vitals Vital signs reviewed: Yes - General General: Alert and oriented X 3, Well developed/nourished, Other (seems anxious, but pleasant and conversant) - Neck Neck: Supple, no meningeal sign, No adenopathy - Cardiac Cardiac: RRR, No murmur - Respiratory Respiratory: Clear bilaterally - Abdomen Abdomen: Soft, Non tender - Derm Derm: Normal color, Warm and dry - Neuro Neuro: Alert and oriented X 3, No motor deficit, Normal speech Results - Vitals Vitals: Vital Signs - 24 hr 06/12/18 06/12/18 15:09 18:10 Temperature 36.7 C 36.5 C Heart Rate 117 H 80 Respiratory 18 17 Rate Blood Pressure 114/85 H 124/75 O2 Saturation 96 100 Oxygen O2 Source Room air - Labs Labs: Laboratory Tests 06/12/18 06/12/18 06/12/18 16:00 16:19 16:20 WBC 7.4 RBC 4.11 L Hgb 13.2 Hct 39.3 MCV 95.5 MCH 32.1 H MCHC 33.7 RDW 13.2 Plt Count 246 MPV 7.7 L Neut # (Auto) 4.1 Lymph # (Auto) 2.2 [place] # (Auto) 0.7 Eos # (Auto) 0.3 Baso # (Auto) 0.0 Absolute Nucleated RBC 0.00 Nucleated RBC % 0.0 Sodium Potassium Chloride Carbon Dioxide Anion Gap BUN Creatinine Estimated GFR (MDRD) Glucose Calcium Total Bilirubin AST ALT Alkaline Phosphatase Total Protein Albumin Globulin Albumin/Globulin Ratio Lipase TSH Urine Color LT RED Urine Clarity HAZY Urine pH >=9.0 H Ur Specific [place] 1.010 1.010 Urine Protein TRACE Urine Glucose (UA) NEGATIVE Urine Ketones NEGATIVE Urine Occult Blood LARGE H Urine Nitrite NEGATIVE Urine Bilirubin NEGATIVE Urine Urobilinogen 0.2 (NORMAL) Ur Leukocyte Esterase NEGATIVE Urine RBC 6 Urine WBC 0-3 Ur Squamous Epith Cells MOD Squamous H Urine Bacteria Rare Ur Microscopic Review INDICATED Urine Culture Comments NOT INDICATED Urine HCG, Qual NEGATIVE Urine Opiates Screen NEGATIVE Ur Oxycodone Screen NEGATIVE Urine Methadone Screen NEGATIVE Ur Propoxyphene Screen NEGATIVE Ur Barbiturates Screen NEGATIVE Ur Tricyclics Screen NEGATIVE Ur Phencyclidine Scrn NEGATIVE Ur Amphetamine Screen NEGATIVE U Methamphetamines Scrn NEGATIVE U Benzodiazepines Scrn NEGATIVE Urine Cocaine Screen NEGATIVE U Cannabinoids Screen NEGATIVE Ethyl Alcohol 06/12/18 06/12/18 16:20 16:20 WBC RBC Hgb Hct MCV MCH MCHC RDW Plt Count MPV Neut # (Auto) Lymph # (Auto) [place] # (Auto) Eos # (Auto) Baso # (Auto) Absolute Nucleated RBC Nucleated RBC % Sodium 142 Potassium 3.7 Chloride 102 Carbon Dioxide 33 H Anion Gap 7.0 BUN 9 Creatinine 0.7 Estimated GFR (MDRD) 90 Glucose 109 H Calcium 8.7 Total Bilirubin < 0.2 L AST 23 ALT 24 Alkaline Phosphatase 42 Total Protein 6.3 L Albumin 3.6 Globulin 2.7 Albumin/Globulin Ratio 1.3 Lipase 26 TSH 1.56 Urine Color Urine Clarity Urine pH Ur Specific [place] Urine Protein Urine Glucose (UA) Urine Ketones Urine Occult Blood Urine Nitrite Urine Bilirubin Urine Urobilinogen Ur Leukocyte Esterase Urine RBC Urine WBC Ur Squamous Epith Cells Urine Bacteria Ur Microscopic Review Urine Culture Comments Urine HCG, Qual Urine Opiates Screen Ur Oxycodone Screen Urine Methadone Screen Ur Propoxyphene Screen Ur Barbiturates Screen Ur Tricyclics Screen Ur Phencyclidine Scrn Ur Amphetamine Screen U Methamphetamines Scrn U Benzodiazepines Scrn Urine Cocaine Screen U Cannabinoids Screen Ethyl Alcohol < 5.0 PD MEDICAL DECISION MAKING - ED course Complexity details: considered differential, d/w patient, d/w consultant [employer]. 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 Shared decision that she would not benefit from readmission necessarily as not getting counseling or direct therapy there, just group.) Departure - Departure Disposition: 01 Home, Self Care Clinical Impression: Affective psychosis Anxiety disorder, unspecified Qualifiers: Anxiety disorder type: unspecified anxiety disorder Qualified Code(s): F41.9 - Anxiety disorder, unspecified Condition: Stable Record reviewed to determine appropriate education?: Yes Follow-Up: Bobo Sun MD [Primary Care Provider] - Prescriptions: LORazepam [Ativan] 1 mg PO BID #10 tablet Comments: Continue the medications recently prescribed. Add Lorazepam as needed twice daily for anxiety/ sleep. Follow up with your Counselor and PMD this coming week. Stay well hydrated. Discharge Date/Time: 06/12/18 18:17
[2018-06-12 16:08] LABS: MUDS CUTOFF CONCENTRATIONS CUTOFF CONC BELOW:
[2018-06-12 16:10] LABS: BILIRUBIN,URINE NEGATIVE (NEGATIVE); GLUCOSE, URINE (UA) NEGATIVE (NEGATIVE); KETONES,URINE (UA) NEGATIVE (NEGATIVE); LEUKOCYTE ESTERASE, URINE NEGATIVE (NEGATIVE); NITRITE,URINE NEGATIVE (NEGATIVE); OCCULT BLOOD,URINE LARGE (NEGATIVE); PH,URINE >=9.0 PH (5.0-7.5); PROTEIN,URINE TRACE mg/dL (NEGATIVE); UROBILINOGEN,URINE 0.2 (NORMAL) E.U./dL (NORMAL)
[2018-06-12] MEDS ORDERED: MAG HYDROX/AL HYDROX/SIMETH 30 ML UDC PO STA (16:12)
[2018-06-12 16:15] LABS: CLARITY,URINE HAZY (CLEAR)
[2018-06-12 16:25] LABS: AMPHETAMINE SCREEN,URINE NEGATIVE (NEGATIVE); BACTERIA,URINE Rare /HPF (None Seen); BENZODIAZEPINES SCREEN, URINE NEGATIVE (NEGATIVE); COCAINE SCREEN URINE NEGATIVE (NEGATIVE); METHADONE SCREEN, URINE NEGATIVE (NEGATIVE); METHAMPHETAMINES SCREEN, URINE NEGATIVE (NEGATIVE); OPIATE SCREEN, URINE NEGATIVE (NEGATIVE); OXYCODONE SCREEN, URINE NEGATIVE (NEGATIVE); PROPOXYPHENE SCREEN, URINE NEGATIVE (NEGATIVE); RBC,URINE 6 /HPF (0-5); SQUAMOUS EPITHELIAL CELL,UR MOD Squamous (<= Few); TRICYCLIC ANTIDEPRESSANT,URINE NEGATIVE (NEGATIVE)
[2018-06-12 16:26] LABS: BASOPHILS % (AUTO) 0.6 %; EOSINOPHILS # (AUTO) 0.3 10^3/uL (0.0-0.7); EOSINOPHILS % (AUTO) 4.3 %; HGB - HEMOGLOBIN 13.2 g/dL (12.0-16.0); LYMPHOCYTES # (AUTO) 2.2 10^3/uL (1.5-3.5); LYMPHOCYTES % (AUTO) 29.3 %; MEAN CORPUSCULAR HEMOGLOBIN 32.1 pg (27.0-31.0); MEAN CORPUSCULAR HGB CONC 33.7 g/dL (32.0-36.0); MEAN CORPUSCULAR VOLUME 95.5 fL (81.0-99.0); MEAN PLATELET VOLUME 7.7 fL (7.9-10.8); MONOCYTES # (AUTO) 0.7 10^3/uL (0.0-1.0); MONOCYTES % (AUTO) 9.9 %; NEUTROPHILS # (AUTO) 4.1 10^3/uL (1.5-6.6); NEUTROPHILS % (AUTO) 55.9 %; PLT - PLATELET COUNT 246 10^3/uL (130-450); RED BLOOD COUNT 4.11 10^6/uL (4.20-5.40); RED CELL DISTRIBUTION WIDTH 13.2 % (12.0-15.0); WHITE BLOOD COUNT 7.4 x10^3/uL (4.8-10.8)
[2018-06-12 16:26] LABS: HCG UR QUAL NEGATIVE
[2018-06-12 16:40] LABS: ALBUMIN 3.6 g/dL (3.2-5.5); ALBUMIN/GLOBULIN RATIO 1.3 (1.0-2.2); ALKALINE PHOSPHATASE 42 IU/L (42-121); ALT ALANINE AMINOTRANSFERASE 24 IU/L (10-60); AST ASPARTATE AMINOTRANSFERASE 23 IU/L (10-42); BILIRUBIN,TOTAL < 0.2 mg/dL (0.2-1.0); BUN - BLOOD UREA NITROGEN 9 mg/dL (6-20); CALCIUM 8.7 mg/dL (8.5-10.3); CARBON DIOXIDE - CO2 33 mmol/L (21-32); CHLORIDE 102 mmol/L (101-111); CREATININE 0.7 mg/dL (0.4-1.0); GFR - MDRD 90 (>89); GLUCOSE 109 mg/dL (70-100); LIPASE 26 U/L (22-51); SODIUM 142 mmol/L (135-145); TOTAL PROTEIN 6.3 g/dL (6.7-8.2)
[2018-06-12] MEDS ORDERED: LORazepam 0.5 MG TABLET PO STA (17:42)
[2018-06-12 18:10] VITALS: BP 124/75
== END 2018-06-12 18:17 | disposition home or self-care (01) ==
LOC: ED 15:04
DX: F39 Unspecified mood [affective] disorder (principal); F32.9 Major depressive disorder, single episode, unspecified; F41.9 Anxiety disorder, unspecified; F17.200 Nicotine dependence, unspecified, uncomplicated
CPT/HCPCS: 36415; 80053; 80306; 80320; 81001; 81025; 83690; 84443; 85025; 99283; 99284; A9270; 81003; 87086

== ENCOUNTER 2019-01-13 08:00 | Outpatient (CLI) | payer MEDICAID ==
[2019-01-13 19:33] LABS: HGB - HEMOGLOBIN 14.8 g/dL (12.0-16.0); MEAN CORPUSCULAR HEMOGLOBIN 31.6 pg (27.0-31.0); MEAN CORPUSCULAR HGB CONC 32.2 g/dL (32.0-36.0); MEAN CORPUSCULAR VOLUME 97.9 fL (81.0-99.0); MEAN PLATELET VOLUME 10.1 fL (7.9-10.8); RED BLOOD COUNT 4.69 10^6/uL (4.20-5.40); RED CELL DISTRIBUTION WIDTH 14.3 % (12.0-15.0); WHITE BLOOD COUNT 6.1 x10^3/uL (4.8-10.8)
[2019-01-13 20:01] LABS: T4 (THYROXINE) 7.97 ug/dL (6.09-12.23)
[2019-01-13 20:02] LABS: ALBUMIN/GLOBULIN RATIO 1.3 (1.0-2.2); ALKALINE PHOSPHATASE 55 IU/L (42-121); ALT ALANINE AMINOTRANSFERASE 30 IU/L (10-60); AST ASPARTATE AMINOTRANSFERASE 32 IU/L (10-42); BILIRUBIN,TOTAL 0.5 mg/dL (0.2-1.0); BUN - BLOOD UREA NITROGEN 10 mg/dL (6-20); CALCIUM 9.7 mg/dL (8.5-10.3); CARBON DIOXIDE - CO2 30 mmol/L (21-32); CHLORIDE 100 mmol/L (101-111); CHOL/HDL RATIO 3.1 (<4.4); CHOLESTEROL 185 mg/dL; CREATININE 0.9 mg/dL (0.4-1.0); GFR - MDRD 67 (>89); GLUCOSE 97 mg/dL (70-100); HDL CHOLESTEROL 59 mg/dL; LDL CHOLESTEROL,CALCULATED 87 mg/dL; LDL/HDL RATIO 1.5 (<4.4); SODIUM 142 mmol/L (135-145); TOTAL PROTEIN 7.2 g/dL (6.7-8.2); VLDL CHOLESTEROL 39 mg/dL
[2019-01-13 20:05] LABS: THYROID STIMULATING HORMONE 0.54 uIU/mL (0.34-5.60)
[2019-01-13 20:12] LABS: HB2 TOTAL 15.1 g/dL; HEMOGLOBIN A1C 0.61 g/dL; HEMOGLOBIN A1C % 5.8 % (4.6-6.2)
[2019-01-16 16:38] LABS: HIV AG/AB 4TH GEN NON-REACTIVE (NON-REACTIVE)
== END 2019-01-13 23:59 | disposition home or self-care (01) ==
LOC: LAB.N 08:00
PROVIDERS: ATTEND Obstetrics & Gynecology
DX: Z00.00 Encounter for general adult medical examination without abnormal findings (principal); Z13.1 Encounter for screening for diabetes mellitus; Z11.4 Encounter for screening for human immunodeficiency virus [HIV]
CPT/HCPCS: 36415; 80053; 80061; 83036; 83721; 84436; 84443; 85027; 87389

== ENCOUNTER 2019-02-28 14:51 | Outpatient (CLI) | payer MEDICAID | END 2019-02-28 14:52 | disposition critical access hospital (66) | LOC: EMS 14:51 | PROVIDERS: ATTEND Surgery | DX: F41.9 Anxiety disorder, unspecified (principal) ==

== ENCOUNTER 2019-02-28 15:07 | Emergency (ER) | payer MEDICAID ==
[2019-02-28] MEDS ORDERED: LORazepam 1 MG TABLET PO STA (15:44)
[2019-02-28] MEDS ORDERED: ONDANSETRON ODT 4 MG TABLET TL STA (15:44)
--- NOTE | 2019-02-28 15:45 | ED Physician Documentation ---
History of Present Illness - Stated complaint Stated Complaint: ANXIETY - Chief complaint Chief Complaint: MHE - Additonal information Additional information: This is a 44-year-old female with a history of anxiety who presents with a exacerbation of her anxiety. She took 1 of her mother's 5 mg oxycodone pills for her chronic back pain, and afterwards she felt guilty and anxious about it. She states that this ramped up her anxiety and she feels like her heart is racing and she feels shaky all over. She denies chest pain or abdominal pain, no passing out. Review of Systems Constitutional: denies: Fever Cardiac: reports: Palpitations GI: denies: Abdominal Pain : denies: Dysuria Neurologic: denies: Generalized weakness Psychiatric: reports: Anxiety PD PAST MEDICAL HISTORY - Past Medical History Past Medical History: Yes Cardiovascular: Atrial fibrillation Respiratory: None Neuro: None Endocrine/Autoimmune: Type 2 diabetes GI: None SKIN FITTER: None : None HEENT: None Psych: Depression Musculoskeletal: None Derm: None - Past Surgical History Past Surgical History: Yes General: Cholecystectomy HEENT: Tonsil/Adenoidectomy - Present Medications Home Medications: Ambulatory Orders Medication Instructions Recorded Confirmed Gabapentin 1 tab PO BID 06/12/18 06/12/18 Hydroxyzine Pamoate [Vistaril] 1 tab PO BID PRN 06/12/18 06/12/18 LORazepam [Ativan] 1 mg PO BID #10 tablet 06/12/18 Omeprazole 1 tab PO DAILY 06/12/18 06/12/18 Risperidone [Risperdal] 1 tab PO BID 06/12/18 06/12/18 Sucralfate [Carafate] 1 tab PO BID 06/12/18 06/12/18 Venlafaxine HCl [Effexor Xr] 1 tab PO DAILY 06/12/18 06/12/18 traZODone [Desyrel] 1 tab PO QPM PRN 06/12/18 06/12/18 - Allergies Allergies/Adverse Reactions: Allergies Allergy/AdvReac Type Severity Reaction Status Date / Time latex AdvReac Itching Verified 06/12/18 15:11 - Social History Does the pt smoke?: No Smoking Status: Never smoker Does the pt drink ETOH?: Yes ETOH Use: Liquor Does the pt have substance abuse?: No - Immunizations Immunizations are current?: Yes - POLST Patient has POLST: No PD ED PE NORMAL - Vitals Vital signs reviewed: Yes - General General: Alert and oriented X 3 - HEENT HEENT: PERRL - Neck Neck: Supple, no meningeal sign - Cardiac Cardiac: Other (Tachycardic, regular rhythm) - Respiratory Respiratory: No respiratory distress, Clear bilaterally - Abdomen Abdomen: Soft, Non tender, Non distended - Derm Derm: Warm and dry - Extremities Extremities: No deformity - Neuro Neuro: Alert and oriented X 3, 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, No motor deficit, No sensory deficit, Normal speech - Psych Psych: Normal mood, Normal affect Results - Vitals Vitals: Vital Signs - 24 hr 02/28/19 02/28/19 02/28/19 15:06 15:11 15:38 Temperature 37.0 C 36.9 C Heart Rate 69 118 H 122 H Respiratory 16 18 24 Rate Blood Pressure 153/66 H 182/119 H 177/107 H O2 Saturation 97 98 98 02/28/19 16:00 Temperature Heart Rate 113 H Respiratory 12 Rate Blood Pressure 158/104 H O2 Saturation 96 Oxygen O2 Source Room air - EKG (time done) 15:55 Other comments: Other comments (Rate 113, rhythm sinus tachycardia, there is no ST segment elevation or depression. There is T wave flattening in V2 and V3. QTC 457.) - Labs Labs: Laboratory Tests 02/28/19 02/28/19 15:15 15:15 Ur Specific [place] <=1.005 Urine HCG, Qual NEGATIVE Urine Opiates Screen NEGATIVE Ur Oxycodone Screen POSITIVE H Urine Methadone Screen NEGATIVE Ur Propoxyphene Screen NEGATIVE Ur Barbiturates Screen NEGATIVE Ur Tricyclics Screen NEGATIVE Ur Phencyclidine Scrn NEGATIVE Ur Amphetamine Screen NEGATIVE U Methamphetamines Scrn NEGATIVE U Benzodiazepines Scrn NEGATIVE Urine Cocaine Screen NEGATIVE U Cannabinoids Screen NEGATIVE PD MEDICAL DECISION MAKING - ED course Complexity details: considered differential (Anxiety, substance use, alcohol withdrawal) ED course: Patient is anxious appearing but non-toxic on exam, she is tachycardic and EKG shows a sinus tachycardia without signs of dysrhtymia. She has no chest pain or shortness of breath, history and exam make cardiac cause or PE extremely unlikely. Urine HCG is negative, Utox positive only for oxycodone. She was given 1mg ativan PO and had improvement in her symptoms. HR 82 on my exam after ativan. She is feeling improved and would like to go home. Unlikely to be thyroid disturbance given the chronicity of her anxiety. I instructed her to follow with her PCP, and reviewed return precautions. Departure - Departure Disposition: 01 Home, Self Care Clinical Impression: Anxiety Condition: Good Instructions: ED Stress React Follow-Up: Your,PCP [Other] Comments: Please follow-up with your primary care provider on your anxiety. Return to the emergency department for worsening/concerning symptoms Discharge Date/Time: 02/28/19 17:08
[2019-02-28 16:07] VITALS: BP 158/104
[2019-02-28 16:14] LABS: MUDS CUTOFF CONCENTRATIONS CUTOFF CONC BELOW:
[2019-02-28 16:18] LABS: HCG UR QUAL NEGATIVE
[2019-02-28 16:38] LABS: AMPHETAMINE SCREEN,URINE NEGATIVE (NEGATIVE); BENZODIAZEPINES SCREEN, URINE NEGATIVE (NEGATIVE); COCAINE SCREEN URINE NEGATIVE (NEGATIVE); METHADONE SCREEN, URINE NEGATIVE (NEGATIVE); METHAMPHETAMINES SCREEN, URINE NEGATIVE (NEGATIVE); OPIATE SCREEN, URINE NEGATIVE (NEGATIVE); TRICYCLIC ANTIDEPRESSANT,URINE NEGATIVE (NEGATIVE)
[2019-02-28 16:39] LABS: OXYCODONE SCREEN, URINE POSITIVE (NEGATIVE); PROPOXYPHENE SCREEN, URINE NEGATIVE (NEGATIVE)
== END 2019-02-28 17:08 | disposition home or self-care (01) ==
LOC: EDUNIT# → ED 15:07
DX: F41.9 Anxiety disorder, unspecified (principal); R00.0 Tachycardia, unspecified; E11.9 Type 2 diabetes mellitus without complications
CPT/HCPCS: 80306; 81025; 93005; 99283; 99284; J8499; Q0162

== ENCOUNTER 2019-03-05 19:23 | Outpatient (CLI) | payer MEDICAID | END 2019-03-05 19:24 | disposition critical access hospital (66) | LOC: EMS 19:23 | PROVIDERS: ATTEND Surgery | DX: T42.4X2A Poisoning by benzodiazepines, intentional self-harm, initial encounter (principal); R53.83 Other fatigue | CPT/HCPCS: A0425; A0427; A0999 ==

== ENCOUNTER 2019-03-05 19:37 | Emergency (ER) | payer MEDICAID ==
[2019-03-05] MEDS ORDERED: SODIUM CHLORIDE 0.9% 1,000 ML IV ONE (19:42)
--- NOTE | 2019-03-05 19:53 | ED Physician Documentation ---
PD HPI OVERDOSE - Stated complaint Stated Complaint: OD/ETOH - History obtained from History obtained from: Patient, EMS - History of Present Illness Timing - onset: How many hours ago (2) Subtance(s) ingested: EtOH, Benzo (14mg ativan) Associated symptoms: Altered mental status Contributing factors: Alchoholic, Other (states she was anxious. denies SI) Pain level max: 0 Pain level now: 0 - Additional information Additional information: Patient received fourteen 1 mg Ativan pills 2 days ago from her primary care provider. She reportedly took all of them approximately an hour and 1/2 to 2 hours prior to arrival. She has been drinking alcohol tonight as well. She denies being suicidal. She states she was "anxious". 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 : None HEENT: None Psych: Depression Musculoskeletal: None Derm: None - Past Surgical History Past Surgical History: Yes General: Cholecystectomy HEENT: Tonsil/Adenoidectomy - Present Medications Home Medications: Ambulatory Orders Medication Instructions Recorded Confirmed Gabapentin 1 tab PO BID 06/12/18 06/12/18 Hydroxyzine Pamoate [Vistaril] 1 tab PO BID PRN 06/12/18 06/12/18 LORazepam [Ativan] 1 mg PO BID #10 tablet 06/12/18 Omeprazole 1 tab PO DAILY 06/12/18 06/12/18 Risperidone [Risperdal] 1 tab PO BID 06/12/18 06/12/18 Sucralfate [Carafate] 1 tab PO BID 06/12/18 06/12/18 Venlafaxine HCl [Effexor Xr] 1 tab PO DAILY 06/12/18 06/12/18 traZODone [Desyrel] 1 tab PO QPM PRN 06/12/18 06/12/18 - Allergies Allergies/Adverse Reactions: Allergies Allergy/AdvReac Type Severity Reaction Status Date / Time latex AdvReac Itching Verified 03/05/19 19:48 - Social History Does the pt smoke?: No Smoking Status: Never smoker Does the pt drink ETOH?: Yes Does the pt have substance abuse?: No - Immunizations Immunizations are current?: Yes - POLST Patient has POLST: No PD ED PE NORMAL - Vitals Vital signs reviewed: Yes - General General: No acute distress, Well developed/nourished, Other (Intoxicated) - HEENT HEENT: Atraumatic, PERRL, Moist mucous membranes, Pharynx benign - Neck Neck: Supple, no meningeal sign, No bony TTP - Cardiac Cardiac: RRR - Respiratory Respiratory: No respiratory distress, Clear bilaterally - Abdomen Abdomen: Soft, Non tender, Non distended - Back Back: No spinal TTP - Derm Derm: Warm and dry - Extremities Extremities: No edema - Neuro Neuro: Alert and oriented 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, 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, No motor deficit, No sensory deficit, Other (Mild slurring of speech) Eye Opening: Spontaneous Motor: Obeys Commands Verbal: Oriented GCS Score: 15 - Psych Psych: Normal mood, Normal affect Results - Vitals Vitals: Vital Signs - 24 hr 03/05/19 03/05/19 03/05/19 19:39 20:00 20:30 Temperature 37.0 C Heart Rate 123 H 117 H 120 H Respiratory 18 19 16 Rate Blood Pressure 126/84 H 120/72 122/72 O2 Saturation 96 93 92 03/05/19 03/05/19 21:00 21:30 Temperature Heart Rate 124 H 122 H Respiratory 19 18 Rate Blood Pressure 146/101 H 129/83 H O2 Saturation 93 93 Oxygen O2 Source Room air - EKG (time done) 1949 Rate: Rate (enter#) (114) Rhythm: Sinus tachycardia [place]: Normal Intervals: Normal [place] QRS: Normal Ischemia: Normal ST segments - Labs Labs: Laboratory Tests 03/05/19 03/05/19 03/05/19 19:58 19:58 19:58 WBC 8.3 RBC 4.77 Hgb 14.9 Hct 45.8 MCV 96.0 MCH 31.2 H MCHC 32.5 RDW 13.9 Plt Count 310 MPV 9.0 Neut # (Auto) 4.0 Lymph # (Auto) 3.3 [place] # (Auto) 0.9 Eos # (Auto) 0.2 Baso # (Auto) 0.1 Absolute Nucleated RBC 0.00 Nucleated RBC % 0.0 Sodium 146 H Potassium 3.6 Chloride 107 Carbon Dioxide 28 Anion Gap 11.0 BUN 7 Creatinine 0.8 Estimated GFR (MDRD) 77 L Glucose 122 H Calcium 9.0 Total Bilirubin 0.4 AST 20 ALT 25 Alkaline Phosphatase 44 Total Protein 6.7 Albumin 4.0 Globulin 2.7 Albumin/Globulin Ratio 1.5 Lipase 33 TSH 0.56 Urine Color Urine Clarity Urine pH Ur Specific [place] Urine Protein Urine Glucose (UA) Urine Ketones Urine Occult Blood Urine Nitrite Urine Bilirubin Urine Urobilinogen Ur Leukocyte Esterase Ur Microscopic Review Urine Culture Comments Urine HCG, Qual Salicylates < 6.0 Urine Opiates Screen Ur Oxycodone Screen Urine Methadone Screen Ur Propoxyphene Screen Acetaminophen 10 Ur Barbiturates Screen Ur Tricyclics Screen Ur Phencyclidine Scrn Ur Amphetamine Screen U Methamphetamines Scrn U Benzodiazepines Scrn Urine Cocaine Screen U Cannabinoids Screen Ethyl Alcohol 273.6 03/05/19 03/05/19 20:32 20:32 WBC RBC Hgb Hct MCV MCH MCHC RDW Plt Count MPV Neut # (Auto) Lymph # (Auto) [place] # (Auto) Eos # (Auto) Baso # (Auto) Absolute Nucleated RBC Nucleated RBC % Sodium Potassium Chloride Carbon Dioxide Anion Gap BUN Creatinine Estimated GFR (MDRD) Glucose Calcium Total Bilirubin AST ALT Alkaline Phosphatase Total Protein Albumin Globulin Albumin/Globulin Ratio Lipase TSH Urine Color YELLOW Urine Clarity CLEAR Urine pH 6.5 Ur Specific [place] <=1.005 Urine Protein NEGATIVE Urine Glucose (UA) NEGATIVE Urine Ketones NEGATIVE Urine Occult Blood NEGATIVE Urine Nitrite NEGATIVE Urine Bilirubin NEGATIVE Urine Urobilinogen 0.2 (NORMAL) Ur Leukocyte Esterase NEGATIVE Ur Microscopic Review NOT INDICATED Urine Culture Comments NOT INDICATED Urine HCG, Qual NEGATIVE Salicylates Urine Opiates Screen NEGATIVE Ur Oxycodone Screen NEGATIVE Urine Methadone Screen NEGATIVE Ur Propoxyphene Screen NEGATIVE Acetaminophen Ur Barbiturates Screen NEGATIVE Ur Tricyclics Screen NEGATIVE Ur Phencyclidine Scrn NEGATIVE Ur Amphetamine Screen NEGATIVE U Methamphetamines Scrn NEGATIVE U Benzodiazepines Scrn POSITIVE H Urine Cocaine Screen NEGATIVE U Cannabinoids Screen NEGATIVE Ethyl Alcohol PD MEDICAL DECISION MAKING - ED course Complexity details: reviewed old records, reviewed results, re-evaluated patient, considered differential, d/w patient ED course: 44-year-old female with alcohol intoxication and possible overdose on Ativan. The case was discussed with poison control, they recommend 8 to 12 hours of monitoring. She states she was not suicidal, but I think it is worthwhile to have her reevaluated when sober. We will sign her out to the oncoming emergency department physician. She is maintaining her own airway at this point and speaking with mild slurring, consistent with alcohol intoxication. This document was made in part using voice recognition software. While efforts are made to proofread this document, sound alike and grammatical errors may occur. Departure - Departure Clinical Impression: Tachycardia, Anxiety Alcohol intoxication Qualifiers: Complication of substance-induced condition: uncomplicated Qualified Code(s): F10.920 - Alcohol use, unspecified with intoxication, uncomplicated Benzodiazepine overdose Qualifiers: Encounter type: initial encounter Injury intent: undetermined intent Qualified Code(s): T42.4X4A - Poisoning by benzodiazepines, undetermined, initial encounter Condition: Stable
[2019-03-05 20:03] LABS: BASOPHILS # (AUTO) 0.1 10^3/uL (0.0-0.1); BASOPHILS % (AUTO) 0.6 %; EOSINOPHILS # (AUTO) 0.2 10^3/uL (0.0-0.7); HGB - HEMOGLOBIN 14.9 g/dL (12.0-16.0); LYMPHOCYTES # (AUTO) 3.3 10^3/uL (1.5-3.5); LYMPHOCYTES % (AUTO) 39.3 %; MEAN CORPUSCULAR HEMOGLOBIN 31.2 pg (27.0-31.0); MEAN CORPUSCULAR HGB CONC 32.5 g/dL (32.0-36.0); MONOCYTES # (AUTO) 0.9 10^3/uL (0.0-1.0); MONOCYTES % (AUTO) 10.3 %; NEUTROPHILS % (AUTO) 47.4 %; PLT - PLATELET COUNT 310 10^3/uL (130-450); RED BLOOD COUNT 4.77 10^6/uL (4.20-5.40); RED CELL DISTRIBUTION WIDTH 13.9 % (12.0-15.0); WHITE BLOOD COUNT 8.3 x10^3/uL (4.8-10.8)
[2019-03-05 20:19] LABS: ACETAMINOPHEN 10 ug/mL (10-30); ALBUMIN/GLOBULIN RATIO 1.5 (1.0-2.2); ALKALINE PHOSPHATASE 44 IU/L (42-121); ALT ALANINE AMINOTRANSFERASE 25 IU/L (10-60); AST ASPARTATE AMINOTRANSFERASE 20 IU/L (10-42); BILIRUBIN,TOTAL 0.4 mg/dL (0.2-1.0); BUN - BLOOD UREA NITROGEN 7 mg/dL (6-20); CARBON DIOXIDE - CO2 28 mmol/L (21-32); CHLORIDE 107 mmol/L (101-111); CREATININE 0.8 mg/dL (0.4-1.0); GFR - MDRD 77 (>89); GLUCOSE 122 mg/dL (70-100); LIPASE 33 U/L (22-51); SALICYLATE < 6.0 mg/dL; SODIUM 146 mmol/L (135-145); TOTAL PROTEIN 6.7 g/dL (6.7-8.2)
[2019-03-05 20:37] LABS: BILIRUBIN,URINE NEGATIVE (NEGATIVE); GLUCOSE, URINE (UA) NEGATIVE (NEGATIVE); KETONES,URINE (UA) NEGATIVE (NEGATIVE); LEUKOCYTE ESTERASE, URINE NEGATIVE (NEGATIVE); NITRITE,URINE NEGATIVE (NEGATIVE); OCCULT BLOOD,URINE NEGATIVE (NEGATIVE); PH,URINE 6.5 PH (5.0-7.5); PROTEIN,URINE NEGATIVE (NEGATIVE); UROBILINOGEN,URINE 0.2 (NORMAL) E.U./dL (NORMAL)
[2019-03-05 20:40] LABS: CLARITY,URINE CLEAR (CLEAR); HCG UR QUAL NEGATIVE
[2019-03-05 20:42] LABS: MUDS CUTOFF CONCENTRATIONS CUTOFF CONC BELOW:
[2019-03-05 21:12] LABS: AMPHETAMINE SCREEN,URINE NEGATIVE (NEGATIVE); BENZODIAZEPINES SCREEN, URINE POSITIVE (NEGATIVE); COCAINE SCREEN URINE NEGATIVE (NEGATIVE); METHADONE SCREEN, URINE NEGATIVE (NEGATIVE); METHAMPHETAMINES SCREEN, URINE NEGATIVE (NEGATIVE); OPIATE SCREEN, URINE NEGATIVE (NEGATIVE); OXYCODONE SCREEN, URINE NEGATIVE (NEGATIVE); PROPOXYPHENE SCREEN, URINE NEGATIVE (NEGATIVE); TRICYCLIC ANTIDEPRESSANT,URINE NEGATIVE (NEGATIVE)
--- NOTE | 2019-03-06 00:05 | ED Physician Documentation ---
ED Addendum - Addendum Addendum: 03/06/19 00:00 Received s/o from Dr. Velasquez at change of shift 03/05/19. Patient reportedly overdosed on lorazepam, 14 tablets (1mg each) that were prescribed 2 days ago. She also drank alcohol tonight and has high serum ethanol level. I talked to patient at approximately 11:50 PM 03/05/19. She had removed her IV (this was her third IV , as she had removed her previous 2). Will hold off on placing another IV at this time. I explained to patient that she will need to stay in ED the overnight until SW evaluation in the morning. I told her that this was both for the social work consult as well as necessary observation in ED until the effects of the alcohol and ativan have resolved. She indicates to me that she understands this and then immediately says she is ready to be discharged home. Her speech is slurred. She does not say this in an argumentative or confrontational manner, but seems to have not understood or retained what I had just explained to her.
[2019-03-06] MEDS ORDERED: OLANZapine ODT 5 MG TABLET TL STA (00:25)
[2019-03-06] MEDS ORDERED: ONDANSETRON ODT 4 MG TABLET TL STA ×2 (07:28→09:20)
[2019-03-06 09:18] VITALS: BP 129/97
[2019-03-06] MEDS ORDERED: LORazepam 1 MG TABLET PO STA (09:21)
--- NOTE | 2019-03-06 09:23 | ED Physician Documentation ---
ED Addendum - Addendum Addendum: 03/06/19 09:22 Care turned over to me pending social work evaluation. When I went in to see the patient she said she was ready to go home. She does not feel suicidal. She declined anything to eat. She did climb to be a little nauseous and was so was ordered for Zofran ODT. 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 In the meantime the patient's noted to be tachycardic so I went ahead and gave her 1 mg of Ativan p.o. She was also complaining of continued nausea and was given additional Zofran. Of asked the nursing staff to encourage her to eat and drink. 03/06/19 10:34 I was asked to evaluate the patient again because she was requesting to sign out AMA. I had felt before that she was probably in withdrawal so wanted to talk with her again she is kind of shaky but at least she is eating something now at the bedside her pulse rate was just up over 100. She is telling me that she is not suicidal. She says that she is "sober" having gone through a alcohol treatment program several years ago. She just reports that she has a lot of anxiety. I have encouraged her to wait and talk with the home health care social worker. I am concerned that her anxiety may be related to some alcohol withdrawal. She just keeps insisting that she be discharged home. She states she is not suicidal now has never made a suicide attempt or tried to harm herself in the past. I have no legal recourse to keep her here against her will. She is asked to sign out AMA before our evaluation by social work can be completed.
== END 2019-03-06 10:42 | disposition left against medical advice (07) ==
LOC: EDUNIT# → ED 19:37
DX: T42.4X2A Poisoning by benzodiazepines, intentional self-harm, initial encounter (principal); F10.920 Alcohol use, unspecified with intoxication, uncomplicated; R00.0 Tachycardia, unspecified; R11.0 Nausea; F41.9 Anxiety disorder, unspecified; E11.9 Type 2 diabetes mellitus without complications; Z53.20 Procedure and treatment not carried out because of patient's decision for unspecified reasons
CPT/HCPCS: 36415; 80053; 80306; 80307; 80320; 80329; 81003; 81025; 83690; 84443; 85025; 93005; 99285; A9270; J8499; Q0162; 81001; 87086

== ENCOUNTER 2019-04-04 17:35 | Outpatient (CLI) | payer MEDICAID | END 2019-04-04 17:36 | disposition critical access hospital (66) | LOC: EMS 17:35 | PROVIDERS: ATTEND Surgery | DX: F41.9 Anxiety disorder, unspecified (principal) | CPT/HCPCS: A0425; A0429; A0999 ==

== ENCOUNTER 2019-04-04 17:51 | Emergency (ER) | payer MEDICAID ==
[2019-04-04 18:45] LABS: MUDS CUTOFF CONCENTRATIONS CUTOFF CONC BELOW:
[2019-04-04 18:50] LABS: BILIRUBIN,URINE NEGATIVE (NEGATIVE); GLUCOSE, URINE (UA) NEGATIVE (NEGATIVE); KETONES,URINE (UA) NEGATIVE (NEGATIVE); LEUKOCYTE ESTERASE, URINE NEGATIVE (NEGATIVE); NITRITE,URINE NEGATIVE (NEGATIVE); OCCULT BLOOD,URINE TRACE-LYSE (NEGATIVE); PH,URINE 5.5 PH (5.0-7.5); PROTEIN,URINE NEGATIVE (NEGATIVE); UROBILINOGEN,URINE 0.2 (NORMAL) E.U./dL (NORMAL)
[2019-04-04 18:51] LABS: CLARITY,URINE CLEAR (CLEAR)
[2019-04-04 18:55] LABS: HCG UR QUAL NEGATIVE
[2019-04-04 19:00] LABS: COCAINE SCREEN URINE NEGATIVE (NEGATIVE); METHAMPHETAMINES SCREEN, URINE NEGATIVE (NEGATIVE); OPIATE SCREEN, URINE NEGATIVE (NEGATIVE)
[2019-04-04 19:01] LABS: AMPHETAMINE SCREEN,URINE NEGATIVE (NEGATIVE); BENZODIAZEPINES SCREEN, URINE POSITIVE (NEGATIVE); METHADONE SCREEN, URINE NEGATIVE (NEGATIVE); OXYCODONE SCREEN, URINE NEGATIVE (NEGATIVE); PROPOXYPHENE SCREEN, URINE NEGATIVE (NEGATIVE); TRICYCLIC ANTIDEPRESSANT,URINE NEGATIVE (NEGATIVE)
[2019-04-04 19:02] LABS: BASOPHILS % (AUTO) 0.5 %; EOSINOPHILS # (AUTO) 0.1 10^3/uL (0.0-0.7); EOSINOPHILS % (AUTO) 1.6 %; HGB - HEMOGLOBIN 15.8 g/dL (12.0-16.0); LYMPHOCYTES # (AUTO) 3.1 10^3/uL (1.5-3.5); LYMPHOCYTES % (AUTO) 40.9 %; MEAN CORPUSCULAR HEMOGLOBIN 30.9 pg (27.0-31.0); MEAN CORPUSCULAR HGB CONC 31.9 g/dL (32.0-36.0); MEAN CORPUSCULAR VOLUME 97.1 fL (81.0-99.0); MEAN PLATELET VOLUME 8.7 fL (7.9-10.8); MONOCYTES # (AUTO) 0.7 10^3/uL (0.0-1.0); MONOCYTES % (AUTO) 9.6 %; NEUTROPHILS # (AUTO) 3.6 10^3/uL (1.5-6.6); NEUTROPHILS % (AUTO) 46.9 %; PLT - PLATELET COUNT 347 10^3/uL (130-450); RED BLOOD COUNT 5.11 10^6/uL (4.20-5.40); RED CELL DISTRIBUTION WIDTH 15.2 % (12.0-15.0); WHITE BLOOD COUNT 7.6 x10^3/uL (4.8-10.8)
--- NOTE | 2019-04-04 19:18 | ED Physician Documentation ---
PD HPI ALTERED MENTAL STATUS - Stated complaint Stated Complaint: MHE - Chief complaint Chief Complaint: Neuro - History obtained from History obtained from: Patient - History of Present Illness Timing - onset: How many days ago (report from EMS is patient's mom told them the patient seemed flatter affect, slower thinking and had not taken her usual meds the past couple of days. No reported drug or alcohol use. Patient seemed more confused this afternoon, so mom called EMS.) Timing - duration: Days Timing - details: Gradual onset, Still present, Waxing and waning Quality / character: Confused, Other (slower processing thoughts, seeme flat affect). No: Agitated, Combative Associated symptoms: No: Fever, Headache, Dyspnea, Cough, NVD Contributing factors: Known psych illness. No: Recent illness, Intoxicated (she denies alcohol use on initial history taking.), Substance abuse Basline status: Alert and oriented X 3 (slow processing and thinks about month before answering), Ambulatory, Confused (answers questions but seems to have to think about them. Ambulatory but deliberate in her gait. 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 : None HEENT: None Psych: Depression Musculoskeletal: None Derm: None - Past Surgical History Past Surgical History: Yes General: Cholecystectomy HEENT: Tonsil/Adenoidectomy - Present Medications Home Medications: Ambulatory Orders Medication Instructions Recorded Confirmed Gabapentin 1 tab PO BID 06/12/18 06/12/18 Hydroxyzine Pamoate [Vistaril] 1 tab PO BID PRN 06/12/18 06/12/18 LORazepam [Ativan] 1 mg PO BID #10 tablet 06/12/18 Omeprazole 1 tab PO DAILY 06/12/18 06/12/18 Risperidone [Risperdal] 1 tab PO BID 06/12/18 06/12/18 Sucralfate [Carafate] 1 tab PO BID 06/12/18 06/12/18 Venlafaxine HCl [Effexor Xr] 1 tab PO DAILY 06/12/18 06/12/18 traZODone [Desyrel] 1 tab PO QPM PRN 06/12/18 06/12/18 - Allergies Allergies/Adverse Reactions: Allergies Allergy/AdvReac Type Severity Reaction Status Date / Time latex AdvReac Itching Verified 03/05/19 19:48 - Social History Does the pt smoke?: No Smoking Status: Never smoker Does the pt drink ETOH?: Yes Does the pt have substance abuse?: No - Immunizations Immunizations are current?: Yes - POLST Patient has POLST: No PD ED PE NORMAL - General General: Alert and oriented X 3 (slow processing and thinks about month before answering), Well developed/nourished, Other (smell of alcohol on her breath) - HEENT HEENT: Atraumatic, PERRL, EOMI - Neck Neck: Supple, no meningeal sign, No bony TTP, No adenopathy - Cardiac Cardiac: No murmur. No: RRR (regular but tachycardic. ) - Respiratory Respiratory: Clear bilaterally - Abdomen Abdomen: Soft, Non tender - Derm Derm: Normal color, Warm and dry - Neuro Neuro: No motor deficit, No sensory deficit, Normal speech (slower processing thoughts, seeme flat affect) - Psych Psych: Normal affect (answers questions but seems to have to think about them. Ambulatory but deliberate in her gait. No ataxia per se.) Results - Vitals Vitals: Vital Signs - 24 hr 04/04/19 04/04/19 04/04/19 17:54 18:11 19:43 Temperature 36.6 C 36.6 C Heart Rate 121 H 121 H 123 H Respiratory 18 18 19 Rate Blood Pressure 129/90 H 129/90 H 132/82 H O2 Saturation 93 93 93 04/04/19 04/04/19 20:00 20:30 Temperature 36.6 C Heart Rate 118 H 116 H Respiratory 18 16 Rate Blood Pressure 130/80 128/80 O2 Saturation 94 96 Oxygen O2 Source Room air - Labs Labs: Laboratory Tests 04/04/19 04/04/19 04/04/19 18:36 18:36 18:54 WBC 7.6 RBC 5.11 Hgb 15.8 Hct 49.6 H MCV 97.1 MCH 30.9 MCHC 31.9 L RDW 15.2 H Plt Count 347 MPV 8.7 Neut # (Auto) 3.6 Lymph # (Auto) 3.1 [place] # (Auto) 0.7 Eos # (Auto) 0.1 Baso # (Auto) 0.0 Absolute Nucleated RBC 0.00 Nucleated RBC % 0.0 Sodium Potassium Chloride Carbon Dioxide Anion Gap BUN Creatinine Estimated GFR (MDRD) Glucose Calcium Total Bilirubin AST ALT Alkaline Phosphatase Total Protein Albumin Globulin Albumin/Globulin Ratio Lipase TSH Urine Color YELLOW Urine Clarity CLEAR Urine pH 5.5 Ur Specific [place] 1.010 Urine Protein NEGATIVE Urine Glucose (UA) NEGATIVE Urine Ketones NEGATIVE Urine Occult Blood TRACE-LYSE Urine Nitrite NEGATIVE Urine Bilirubin NEGATIVE Urine Urobilinogen 0.2 (NORMAL) Ur Leukocyte Esterase NEGATIVE Ur Microscopic Review NOT INDICATED Urine Culture Comments NOT INDICATED Urine HCG, Qual NEGATIVE Salicylates Urine Opiates Screen NEGATIVE Ur Oxycodone Screen NEGATIVE Urine Methadone Screen NEGATIVE Ur Propoxyphene Screen NEGATIVE Acetaminophen Ur Barbiturates Screen NEGATIVE Ur Tricyclics Screen NEGATIVE Ur Phencyclidine Scrn NEGATIVE Ur Amphetamine Screen NEGATIVE U Methamphetamines Scrn NEGATIVE U Benzodiazepines Scrn POSITIVE H Urine Cocaine Screen NEGATIVE U Cannabinoids Screen NEGATIVE Ethyl Alcohol 04/04/19 04/04/19 18:54 18:54 WBC RBC Hgb Hct MCV MCH MCHC RDW Plt Count MPV Neut # (Auto) Lymph # (Auto) [place] # (Auto) Eos # (Auto) Baso # (Auto) Absolute Nucleated RBC Nucleated RBC % Sodium 141 Potassium 4.0 Chloride 97 L Carbon Dioxide 31 Anion Gap 13.0 BUN 8 Creatinine 1.0 Estimated GFR (MDRD) 60 L Glucose 116 H Calcium 9.1 Total Bilirubin 0.3 AST 61 H ALT 72 H Alkaline Phosphatase 60 Total Protein 7.2 Albumin 4.1 Globulin 3.1 Albumin/Globulin Ratio 1.3 Lipase 29 TSH 0.40 Urine Color Urine Clarity Urine pH Ur Specific [place] Urine Protein Urine Glucose (UA) Urine Ketones Urine Occult Blood Urine Nitrite Urine Bilirubin Urine Urobilinogen Ur Leukocyte Esterase Ur Microscopic Review Urine Culture Comments Urine HCG, Qual Salicylates < 6.0 Urine Opiates Screen Ur Oxycodone Screen Urine Methadone Screen Ur Propoxyphene Screen Acetaminophen 17 Ur Barbiturates Screen Ur Tricyclics Screen Ur Phencyclidine Scrn Ur Amphetamine Screen U Methamphetamines Scrn U Benzodiazepines Scrn Urine Cocaine Screen U Cannabinoids Screen Ethyl Alcohol 267.6 PD MEDICAL DECISION MAKING - ED course Complexity details: considered differential (no reported trauma. No signs of head injury. She is intoxicated which likely accounts for her slower thought process. She says she had been taking her meds, but mother said she had not. The patient is ambulatory in the ER, and would like to go home. Nursing called her Mom and with patient's consent, told mom test results. Mom is okay with patient returning home by taxi and will take care of her there. Social Work is gone for the day and patient has info from prior ED visits regarding alcohol cessation. ), d/w patient Departure - Departure Disposition: Home, Self Care Clinical Impression: Altered mental status Qualifiers: Altered mental status type: disorientation Qualified Code(s): R41.0 - Disorientation, unspecified Alcohol intoxication Qualifiers: Complication of substance-induced condition: uncomplicated Qualified Code(s): F10.920 - Alcohol use, unspecified with intoxication, uncomplicated Condition: Stable Record reviewed to determine appropriate education?: Yes Follow-Up: LUIS AMBROSIO MD [Primary Care Provider] - Comments: Continue usual medications as prescribed. Stay well-hydrated. Avoid alcohol. Discharge Date/Time: 04/04/19 20:48
[2019-04-04 19:19] LABS: ACETAMINOPHEN 17 ug/mL (10-30); ALBUMIN 4.1 g/dL (3.2-5.5); ALBUMIN/GLOBULIN RATIO 1.3 (1.0-2.2); ALKALINE PHOSPHATASE 60 IU/L (42-121); ALT ALANINE AMINOTRANSFERASE 72 IU/L (10-60); AST ASPARTATE AMINOTRANSFERASE 61 IU/L (10-42); BILIRUBIN,TOTAL 0.3 mg/dL (0.2-1.0); BUN - BLOOD UREA NITROGEN 8 mg/dL (6-20); CALCIUM 9.1 mg/dL (8.5-10.3); CARBON DIOXIDE - CO2 31 mmol/L (21-32); CHLORIDE 97 mmol/L (101-111); GFR - MDRD 60 (>89); GLUCOSE 116 mg/dL (70-100); LIPASE 29 U/L (22-51); SALICYLATE < 6.0 mg/dL; SODIUM 141 mmol/L (135-145); TOTAL PROTEIN 7.2 g/dL (6.7-8.2)
[2019-04-04 20:48] VITALS: BP 128/80
== END 2019-04-04 20:48 | disposition home or self-care (01) ==
LOC: EDUNIT# → ED 17:51
DX: R41.0 Disorientation, unspecified (principal); F10.920 Alcohol use, unspecified with intoxication, uncomplicated; F32.9 Major depressive disorder, single episode, unspecified; E11.9 Type 2 diabetes mellitus without complications
CPT/HCPCS: 36415; 80053; 80306; 80307; 80320; 80329; 81001; 81003; 81025; 83690; 84443; 85025; 87086; 99283; 99284

== ENCOUNTER 2019-04-06 19:17 | Outpatient (CLI) | payer MEDICAID | END 2019-04-06 19:18 | disposition EMS.NT | LOC: EMS 19:17 | PROVIDERS: ATTEND Surgery | DX: Z03.89 Encounter for observation for other suspected diseases and conditions ruled out (principal) ==

== ENCOUNTER 2019-04-15 15:05 | Outpatient (CLI) | payer MEDICAID | END 2019-04-15 15:06 | disposition critical access hospital (66) | LOC: EMS 15:05 | PROVIDERS: ATTEND Surgery | DX: F41.9 Anxiety disorder, unspecified (principal); T50.906A Underdosing of unspecified drugs, medicaments and biological substances, initial encounter; Z91.128 Patient's intentional underdosing of medication regimen for other reason; Y92.038 Other place in apartment as the place of occurrence of the external cause | CPT/HCPCS: A0425; A0429 ==

== ENCOUNTER 2019-04-15 15:18 | Emergency (ER) | payer MEDICAID ==
--- NOTE | 2019-04-15 15:52 | ED Physician Documentation ---
History of Present Illness - Stated complaint Stated Complaint: ANXIETY ATTACK - Chief complaint Chief Complaint: MHE - History obtained from History obtained from: Patient - History of Present Illness Timing: Today Pain level max: 0 Pain level now: 0 - Additonal information Additional information: 44-year-old female presents to the emergency department stating that she has been out of her lorazepam for 2 weeks. She is an alcoholic. She states her anxiety is increasing. Nothing makes it better or worse. She is not suicidal or homicidal. No hallucinations Review of Systems Constitutional: denies: Fever GI: denies: Vomiting, Diarrhea : denies: Now EGA Skin: denies: Rash Neurologic: denies: Focal weakness, Confused, Altered mental status Psychiatric: reports: Anxiety. 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 : None HEENT: None Psych: Depression Musculoskeletal: None Derm: None - Past Surgical History Past Surgical History: Yes General: Cholecystectomy HEENT: Tonsil/Adenoidectomy - Present Medications Home Medications: Ambulatory Orders Medication Instructions Recorded Confirmed Gabapentin 1 tab PO BID 06/12/18 06/12/18 Hydroxyzine Pamoate [Vistaril] 1 tab PO BID PRN 06/12/18 06/12/18 LORazepam [Ativan] 1 mg PO BID #10 tablet 06/12/18 Omeprazole 1 tab PO DAILY 06/12/18 06/12/18 Risperidone [Risperdal] 1 tab PO BID 06/12/18 06/12/18 Sucralfate [Carafate] 1 tab PO BID 06/12/18 06/12/18 Venlafaxine HCl [Effexor Xr] 1 tab PO DAILY 06/12/18 06/12/18 traZODone [Desyrel] 1 tab PO QPM PRN 06/12/18 06/12/18 LORazepam [Ativan] 1 mg PO DAILY #3 tablet 04/15/19 - Allergies Allergies/Adverse Reactions: Allergies Allergy/AdvReac Type Severity Reaction Status Date / Time latex AdvReac Itching Verified 04/15/19 15:23 - Social History Does the pt smoke?: No Smoking Status: Never smoker Does the pt drink ETOH?: Yes Does the pt have substance abuse?: No - Immunizations Immunizations are current?: Yes - POLST Patient has POLST: No PD ED PE NORMAL - Vitals Vital signs reviewed: Yes - General General: Alert and oriented X 3, Well developed/nourished, Other (Appears anxious) - HEENT HEENT: Moist mucous membranes, Pharynx benign - Neck Neck: Supple, no meningeal sign - Cardiac Cardiac: RRR - Respiratory Respiratory: No respiratory distress, Clear bilaterally - Derm Derm: Warm and dry, No rash - Neuro Neuro: Alert and oriented X 3 Results - Vitals Vitals: Vital Signs - 24 hr 04/15/19 04/15/19 15:19 15:56 Temperature 36.6 C 36.7 C Heart Rate 131 H 116 H Respiratory 20 20 Rate Blood Pressure 158/106 H 129/85 H O2 Saturation 94 96 Oxygen O2 Source Room air PD MEDICAL DECISION MAKING - ED course Complexity details: considered differential, d/w patient ED course: Patient initially stated that she was out of her lorazepam for the past 2 weeks. I asked her about the 12 Ativan that she picked up on 04/11/2019. She states this was because she had gone through her Ativan too fast. She states she has gone through these now as well. I informed her that she should not lie to her providers. I will prescribe her 3 pills to get her through until she can see her doctor so that she avoids withdrawal. She also appears intoxicated here, is not driving. I am concerned about prescribing benzodiazepines with her alcoholism and shared this with the patient. Patient counseled regarding signs and symptoms for which I believe and urgent re-evaluation would be necessary. Patient with good understanding of and agreement to plan and is comfortable going home at this time This document was made in part using voice recognition software. While efforts are made to proofread this document, sound alike and grammatical errors may occur. Departure - Departure Disposition: 01 Home, Self Care Clinical Impression: Tachycardia, Anxiety Alcohol intoxication Qualifiers: Complication of substance-induced condition: uncomplicated Qualified Code(s): F10.920 - Alcohol use, unspecified with intoxication, uncomplicated Condition: Good Instructions: ED Alcohol Intoxication, ED Panic Attack Follow-Up: LUIS AMBROSIO MD [Primary Care Provider] - Within 3 Days Prescriptions: LORazepam [Ativan] 1 mg PO DAILY #3 tablet Comments: As we discussed, you need to follow-up with your doctor for your Lorazepam refills. You need to use the medications as prescribed and if you feel that you need a change in dose, this needs to be discussed with your doctor. Please do not take more than your prescribed medication. Discharge Date/Time: 04/15/19 16:01
[2019-04-15 15:58] VITALS: BP 129/85
== END 2019-04-15 16:01 | disposition home or self-care (01) ==
LOC: EDUNIT# → ED 15:18
DX: F41.9 Anxiety disorder, unspecified (principal); R00.0 Tachycardia, unspecified; F10.229 Alcohol dependence with intoxication, unspecified; E11.9 Type 2 diabetes mellitus without complications
CPT/HCPCS: 99283

== ENCOUNTER 2019-04-19 09:53 | Outpatient (CLI) | payer MEDICAID | END 2019-04-19 09:54 | disposition critical access hospital (66) | LOC: EMS 09:53 | PROVIDERS: ATTEND Surgery | DX: F41.9 Anxiety disorder, unspecified (principal); R00.0 Tachycardia, unspecified; R11.0 Nausea; T50.906A Underdosing of unspecified drugs, medicaments and biological substances, initial encounter; Z91.128 Patient's intentional underdosing of medication regimen for other reason; Y92.039 Unspecified place in apartment as the place of occurrence of the external cause | CPT/HCPCS: A0425; A0429 ==

== ENCOUNTER 2019-04-19 10:08 | Emergency (ER) | payer MEDICAID ==
--- NOTE | 2019-04-19 11:24 | ED Physician Documentation ---
History of Present Illness - Stated complaint Stated Complaint: ANXIETY - Chief complaint Chief Complaint: General - Additonal information Additional information: This is a 44-year-old female with history of atrial fibrillation, diabetes, an xiety, who presents with anxiety. Patient states she typically is on Ativan she takes 1.5 mg at a time and she was prescribed this by Dr. Sun. She ran out of it about a week ago and she has not been able to make an appointment with Dr. Sun so she has been out and she is been feeling more anxious during this time. She says she most anxious because it is the holidays and she did not get [employer] gifts for anybody. She denies any suicidal ideation, and denies any thoughts of self-harm. She also has had some vomiting over the last several days, she states this is pretty typical for her. She has had a little bit of diarrhea, no abdominal pain, no blood in her stool. She denies any fever, chest pain, shortness of breath. 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 : None HEENT: None Psych: Depression Musculoskeletal: None Derm: None - Past Surgical History Past Surgical History: Yes General: Cholecystectomy HEENT: Tonsil/Adenoidectomy - Present Medications Home Medications: Ambulatory Orders Medication Instructions Recorded Confirmed Gabapentin 1 tab PO BID 06/12/18 04/19/19 LORazepam [Ativan] 1 mg PO BID #10 tablet 06/12/18 Venlafaxine HCl [Effexor Xr] 1 tab PO DAILY 06/12/18 04/19/19 traZODone [Desyrel] 1 tab PO QPM PRN 06/12/18 04/19/19 LORazepam [Ativan] 1 mg PO DAILY #3 tablet 04/15/19 Lorazepam [Ativan] 1 mg PO BID PRN #5 tablet 04/19/19 Ondansetron Odt [Zofran] 4 mg TL Q6H PRN #10 tablet 04/19/19 - Allergies Allergies/Adverse Reactions: Allergies Allergy/AdvReac Type Severity Reaction Status Date / Time latex AdvReac Itching Verified 04/15/19 15:23 - Social History Does the pt smoke?: No Smoking Status: Never smoker Does the pt drink ETOH?: Yes Does the pt have substance abuse?: No - Immunizations Immunizations are current?: Yes - POLST Patient has POLST: No PD ED PE NORMAL - Vitals Vital signs reviewed: Yes - General General: Alert and oriented X 3, No acute distress - HEENT HEENT: Atraumatic, PERRL - Cardiac Cardiac: Other (Mild tachycardia on my examination, no murmur) - Respiratory Respiratory: No respiratory distress, Clear bilaterally - Abdomen Abdomen: Soft, Non tender, Non distended, Other (Rotund) - Extremities Extremities: No deformity - Neuro Neuro: Alert and oriented X 3, bleacher sulfite pulp 2-12 intact, No motor deficit, No sensory deficit, Normal speech - Psych Psych: Other (No suicidal ideation. Linear, goal-directed thought. Cooperative. Does appear anxious) Results - Vitals Vitals: Vital Signs - 24 hr 04/19/19 04/19/19 04/19/19 10:12 12:09 12:49 Temperature 37.5 C Heart Rate 122 H 105 H 110 H Respiratory 20 17 16 Rate Blood Pressure 158/82 H 154/97 H O2 Saturation 97 98 97 Oxygen O2 Source Room air - EKG (time done) 11:58 Other comments: Other comments (Rate 100, rhythm sinus tachycardia, there is no ST segment elevation or depression.There is T wave flattening in leads III and V3. QTC 438. No significant change from prior EKGOn 03/05/2019) - Labs Labs: Laboratory Tests 04/19/19 04/19/19 04/19/19 12:05 12:30 12:30 WBC 11.9 H RBC 5.11 Hgb 16.4 H Hct 49.6 H MCV 97.1 MCH 32.1 H MCHC 33.1 RDW 14.1 Plt Count 305 MPV 8.8 Neut # (Auto) 9.0 H Lymph # (Auto) 1.9 [place] # (Auto) 0.8 Eos # (Auto) 0.0 Baso # (Auto) 0.0 Absolute Nucleated RBC 0.00 Nucleated RBC % 0.0 Sodium 138 Potassium 3.5 Chloride 94 L Carbon Dioxide 31 Anion Gap 13.0 BUN 6 Creatinine 0.9 Estimated GFR (MDRD) 67 L Glucose 112 H Calcium 9.8 Total Bilirubin 0.4 AST 57 H ALT 98 H Alkaline Phosphatase 62 Total Protein 7.4 Albumin 4.4 Globulin 3.0 Albumin/Globulin Ratio 1.5 Lipase 25 Urine Color YELLOW Urine Clarity CLEAR Urine pH 7.5 Ur Specific [place] 1.010 Urine Protein NEGATIVE Urine Glucose (UA) NEGATIVE Urine Ketones 40 H Urine Occult Blood SMALL H Urine Nitrite NEGATIVE Urine Bilirubin NEGATIVE Urine Urobilinogen 0.2 (NORMAL) Ur Leukocyte Esterase NEGATIVE Urine RBC 0-5 Urine WBC 0-3 Ur Squamous Epith Cells FEW Squamous Urine Bacteria None Seen Ur Microscopic Review INDICATED Urine HCG, Qual NEGATIVE PD MEDICAL DECISION MAKING - ED course Complexity details: considered differential (Anxiety, drug use, alcohol withdrawal, thyroid disturbance, electrolyte abnormality, Benzodiazepine withdrawal) ED course: On presentation patient is tachycardic and hypertensive. However without intervention she calms down somewhat in the room and her tachycardia decreased. She states she only drinks 2 beers daily and she denies any history of alcohol withdrawal. Her abdomen is benign and though she has vomited several times she states that this is typical for her specimen she is feeling anxious. She was given Zofran as well as 1 mg of Ativan and on reassessment patient is feeling much better and she wants to go home. I discussed that I did not yet have all of her labs back, she does not want wait for them and would like to go home. She understands the risks of missed diagnosis by doing so. She continues to have no suicidal ideation, she clearly has capacity. She is tolerating p.o. and was able to drink an entire large glass of water without any problems. On my repeat examination her heart rate is in the 90s. I emphasized that she is to follow-up with her primary care provider and I would not be able to provide further refills of benzodiazepine or other controlled substances for the patient in the future. I will prescribe her 5 Ativan tablets in the meantime while she attempts to achieve outpatient follow-up. I reviewed return precautions and explained the patient is welcome to come back anytime for further care. Patient was discharged home. Her labs showed a mild nonspecific leukocytosis, as well as mild hemoconcentration. Kidney function is normal, her AST and ALT are slightly elevated but this is present on many past labs as well. Lipase is negative. Urine shows ketones but no convincing signs of infection and hCG is negative. Departure - Departure Disposition: 01 Home, Self Care Clinical Impression: Anxiety Condition: Good Prescriptions: Lorazepam [Ativan] 1 mg PO BID PRN #5 tablet PRN Reason: Anxiety Ondansetron Odt [Zofran] 4 mg TL Q6H PRN #10 tablet PRN Reason: Nausea / Vomiting Comments: You were seen today for anxiety. I am glad you are feeling better. We do not yet have the results of your labs, since you want to leave early please follow- up on these results with your PCP. Please make an appointment with your primary care provider soon as possible. I am prescribing you just a couple days of the Ativan, and any further prescription will have to come from your primary care provider, not the emergency department. If you develop chest pain, abdominal pain, difficulty breathing, thoughts of self-harm, or other concerning symptoms please return to emergency department Discharge Date/Time: 04/19/19 12:51
[2019-04-19] MEDS ORDERED: ONDANSETRON ODT 4 MG TABLET TL STA (11:42)
[2019-04-19] MEDS ORDERED: LORazepam 1 MG TABLET PO STA (11:42)
[2019-04-19 12:18] LABS: GLUCOSE, URINE (UA) NEGATIVE (NEGATIVE); KETONES,URINE (UA) 40 mg/dL (NEGATIVE); LEUKOCYTE ESTERASE, URINE NEGATIVE (NEGATIVE); NITRITE,URINE NEGATIVE (NEGATIVE); OCCULT BLOOD,URINE SMALL (NEGATIVE); PH,URINE 7.5 PH (5.0-7.5); PROTEIN,URINE NEGATIVE (NEGATIVE); UROBILINOGEN,URINE 0.2 (NORMAL) E.U./dL (NORMAL)
[2019-04-19 12:20] LABS: BILIRUBIN,URINE NEGATIVE (NEGATIVE); CLARITY,URINE CLEAR (CLEAR); HCG UR QUAL NEGATIVE; ICTOTEST,URINE NEGATIVE
[2019-04-19 12:24] LABS: BACTERIA,URINE None Seen /HPF (None Seen); RBC,URINE 0-5 /HPF (0-5); SQUAMOUS EPITHELIAL CELL,UR FEW Squamous (<= Few)
[2019-04-19 12:45] LABS: BASOPHILS % (AUTO) 0.3 %; EOSINOPHILS % (AUTO) 0.2 %; HGB - HEMOGLOBIN 16.4 g/dL (12.0-16.0); LYMPHOCYTES # (AUTO) 1.9 10^3/uL (1.5-3.5); LYMPHOCYTES % (AUTO) 16.3 %; MEAN CORPUSCULAR HEMOGLOBIN 32.1 pg (27.0-31.0); MEAN CORPUSCULAR HGB CONC 33.1 g/dL (32.0-36.0); MEAN CORPUSCULAR VOLUME 97.1 fL (81.0-99.0); MEAN PLATELET VOLUME 8.8 fL (7.9-10.8); MONOCYTES # (AUTO) 0.8 10^3/uL (0.0-1.0); MONOCYTES % (AUTO) 6.8 %; PLT - PLATELET COUNT 305 10^3/uL (130-450); RED BLOOD COUNT 5.11 10^6/uL (4.20-5.40); RED CELL DISTRIBUTION WIDTH 14.1 % (12.0-15.0); WHITE BLOOD COUNT 11.9 x10^3/uL (4.8-10.8)
[2019-04-19 12:51] VITALS: BP 154/97
[2019-04-19 12:56] LABS: ALBUMIN 4.4 g/dL (3.2-5.5); ALBUMIN/GLOBULIN RATIO 1.5 (1.0-2.2); BILIRUBIN,TOTAL 0.4 mg/dL (0.2-1.0); CALCIUM 9.8 mg/dL (8.5-10.3); CREATININE 0.9 mg/dL (0.4-1.0); TOTAL PROTEIN 7.4 g/dL (6.7-8.2)
== END 2019-04-19 12:51 | disposition home or self-care (01) ==
LOC: EDUNIT# → ED 10:08
DX: F41.9 Anxiety disorder, unspecified (principal); R11.2 Nausea with vomiting, unspecified; R00.0 Tachycardia, unspecified; R03.0 Elevated blood-pressure reading, without diagnosis of hypertension; E11.9 Type 2 diabetes mellitus without complications
CPT/HCPCS: 36415; 80053; 81001; 81025; 83690; 85025; 93005; 99283; 99284; J8499; Q0162; 81003

== ENCOUNTER 2019-04-27 13:14 | Outpatient (CLI) | payer MEDICAID | END 2019-04-27 13:15 | disposition critical access hospital (66) | LOC: EMS 13:14 | PROVIDERS: ATTEND Surgery | DX: F41.9 Anxiety disorder, unspecified (principal) | CPT/HCPCS: A0425; A0429 ==

== ENCOUNTER 2019-04-27 13:31 | Emergency (ER) | payer MEDICAID ==
[2019-04-27 13:41] VITALS: BP 131/92
--- NOTE | 2019-04-27 13:50 | ED Physician Documentation ---
PD HPI MHE - Stated complaint Stated Complaint: ANXIETY - Chief complaint Chief Complaint: MHE - History obtained from History obtained from: Patient (44-year-old woman presents by ambulance for a refill of lorazepam. She says she is out and feeling very anxious. She denies suicidal or homicidal ideation. No hallucinations. Last drink was about 3 days ago. 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 HEENT: None Psych: Depression Musculoskeletal: None Derm: None - Past Surgical History Past Surgical History: Yes General: Cholecystectomy HEENT: Tonsil/Adenoidectomy - Present Medications Home Medications: Ambulatory Orders Medication Instructions Recorded Confirmed Gabapentin 1 tab PO BID 06/12/18 04/19/19 LORazepam [Ativan] 1 mg PO BID #10 tablet 06/12/18 Venlafaxine HCl [Effexor Xr] 1 tab PO DAILY 06/12/18 04/19/19 traZODone [Desyrel] 1 tab PO QPM PRN 06/12/18 04/19/19 LORazepam [Ativan] 1 mg PO DAILY #3 tablet 04/15/19 Lorazepam [Ativan] 1 mg PO BID PRN #5 tablet 04/19/19 Ondansetron Odt [Zofran] 4 mg TL Q6H PRN #10 tablet 04/19/19 - Allergies Allergies/Adverse Reactions: Allergies Allergy/AdvReac Type Severity Reaction Status Date / Time latex AdvReac Itching Verified 04/27/19 13:35 - Social History Does the pt smoke?: No Smoking Status: Never smoker Does the pt drink ETOH?: Yes Does the pt have substance abuse?: No - Immunizations Immunizations are current?: Yes - POLST Patient has POLST: No PD ED PE NORMAL - Vitals Vital signs reviewed: Yes - General General: Alert and oriented X 3, No acute distress - HEENT HEENT: PERRL, EOMI - Neck Neck: Supple, no meningeal sign, No bony TTP - Cardiac Cardiac: RRR, No murmur - Respiratory Respiratory: No respiratory distress, Clear bilaterally - Abdomen Abdomen: Non tender - Neuro Neuro: Alert and oriented X 3, No motor deficit, No sensory deficit, Normal speech Results - Vitals Vitals: Vital Signs - 24 hr 04/27/19 13:35 Temperature 36.5 C Heart Rate 128 H Respiratory 14 Rate Blood Pressure 131/92 H O2 Saturation 98 Oxygen O2 Source Room air PD MEDICAL DECISION MAKING - ED course ED course: 44-year-old woman presents by ambulance for a refill of lorazepam. The [employer]VE[employer] and [place] were reviewed. She filled 60 x 1 mg tablets of lorazepam prescribed by her primary care physician on 20 April. When confronted with this I asked where they were, she said she was already out. She denies that it was an overdose attempt, and she started to become evasive. I offered inpatient treatment which she declined but she understands I cannot under the circumstances prescribe any more lorazepam when she is not using them correctly. Departure - Departure Disposition: 01 Home, Self Care Clinical Impression: Anxiety, Drug-seeking behavior Condition: Good Record reviewed to determine appropriate education?: Yes Instructions: ED Panic Attack Comments: You have been overusing your medications, it is not appropriate for the emergency department to continue prescribing controlled substances when you are not using them correctly. We cannot continue to prescribe lorazepam for you considering that you filled 60 tablets of lorazepam within the last week and are already out. Discharge Date/Time: 04/27/19 13:56
== END 2019-04-27 13:56 | disposition home or self-care (01) ==
LOC: EDUNIT# → ED 13:31
DX: F41.9 Anxiety disorder, unspecified (principal); Z76.5 Malingerer [conscious simulation]; E11.9 Type 2 diabetes mellitus without complications
CPT/HCPCS: 99283

== ENCOUNTER 2019-08-16 14:40 | Outpatient (CLI) | payer MEDICAID | END 2019-08-16 14:41 | disposition critical access hospital (66) | LOC: EMS 14:40 | PROVIDERS: ATTEND Surgery | DX: R45.89 Other symptoms and signs involving emotional state (principal) | CPT/HCPCS: A0425; A0429 ==

== ENCOUNTER 2019-08-16 14:56 | Emergency (ER) | payer MEDICAID ==
--- NOTE | 2019-08-16 15:10 | ED Physician Documentation ---
PD HPI MHE - Stated complaint Stated Complaint: MHE - History obtained from History obtained from: Patient - History of Present Illness Primary symptom: Anxiety Timing - onset: Chronic Pain level max: 0 Pain level now: 0 Similar symptoms before: Diagnosis (anxiety, depression) Recently seen: Not recently seen - Additional information Additional information: 44-year-old female presents to the emergency department stating that she has been feeling more anxious recently. She states that she feels like she is having more intrusive thoughts. She states that she is on Risperdal at home. States Seroquel helped to alleviate these feelings in the past as well. She also states that she is highly anxious and requests something like Ativan or Valium for her anxiety. She states she has been clean and sober from alcohol for several months. She states that she is not suicidal currently or homicidal. Patient also states that she is almost out of her risperidone. She states her doctor has not called her back. When asked how many pills she has, she states approximately 20. 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: None Psych: Depression Musculoskeletal: None Derm: None - Past Surgical History Past Surgical History: Yes General: Cholecystectomy HEENT: Tonsil/Adenoidectomy - Present Medications Home Medications: Ambulatory Orders Medication Instructions Recorded Confirmed risperiDONE [Risperidone] 100 mg PO DAILY 08/16/19 08/16/19 - Allergies Allergies/Adverse Reactions: Allergies Allergy/AdvReac Type Severity Reaction Status Date / Time latex AdvReac Itching Verified 08/16/19 15:08 - Social History Does the pt smoke?: No Smoking Status: Never smoker Does the pt drink ETOH?: Yes Does the pt have substance abuse?: No - Immunizations Immunizations are current?: Yes - POLST Patient has POLST: No PD ED PE NORMAL - Vitals Vital signs reviewed: Yes - General General: Alert and oriented X 3, No acute distress, Well developed/nourished - HEENT HEENT: PERRL, Moist mucous membranes - Neck Neck: Supple, no meningeal sign - Cardiac Cardiac: RRR - Respiratory Respiratory: No respiratory distress, Clear bilaterally - Abdomen Abdomen: Soft, Non tender, Non distended - Derm Derm: Warm and dry, No rash - Extremities Extremities: No edema - Neuro Neuro: Alert and oriented X 3 - Psych Psych: Normal mood, Normal affect Results - Vitals Vitals: Vital Signs - 24 hr 08/16/19 15:10 Temperature 36.7 C Heart Rate 129 H Respiratory 22 Rate Blood Pressure 128/98 H O2 Saturation 97 Oxygen O2 Source Room air - Labs Labs: Laboratory Tests 08/16/19 08/16/19 15:09 15:09 WBC 11.2 H RBC 4.56 Hgb 14.6 Hct 42.7 MCV 93.6 MCH 32.0 H MCHC 34.2 RDW 12.5 Plt Count 271 MPV 9.3 Neut # (Auto) 8.6 H Lymph # (Auto) 1.5 [place] # (Auto) 0.8 Eos # (Auto) 0.1 Baso # (Auto) 0.0 Absolute Nucleated RBC 0.00 Nucleated RBC % 0.0 Sodium 128 L Potassium 3.3 L Chloride 92 L Carbon Dioxide 27 Anion Gap 9.0 BUN < 5 L Creatinine 0.6 Estimated GFR (MDRD) 108 Glucose 145 H Calcium 9.1 Total Bilirubin 0.5 AST 28 ALT 24 Alkaline Phosphatase 59 Total Protein 6.9 Albumin 4.3 Globulin 2.6 Albumin/Globulin Ratio 1.7 Lipase 19 L Salicylates < 6.0 Acetaminophen < 10 L Ethyl Alcohol < 5.0 PD MEDICAL DECISION MAKING - ED course Complexity details: reviewed results, re-evaluated patient, considered diffe rential, d/w patient ED course: Patient requested to talk to tele-psychiatry. This was ordered. While she was waiting she you more Xanax. Informed her that I did not want to give her benzodiazepines at this time. Patient stated that she was okay with this. Approximately 20 minutes later she stated that she was fine and no longer wanted to be seen in the sensory department. She continues to deny being homicidal or suicidal. No psychosis. No hallucinations. No involuntary hold criteria. Patient informed that she is welcome to return anytime should she change her mind. Patient counseled regarding signs and symptoms for which I believe and urgent re-evaluation would be necessary. Patient with good understanding of and agreement to plan and is comfortable going home at this time This document was made in part using voice recognition software. While efforts are made to proofread this document, sound alike and grammatical errors may occur. Departure - Departure Disposition: 01 Home, Self Care Clinical Impression: Anxiety Condition: Good Instructions: ED Panic Attack Follow-Up: LUIS AMBROSIO MD [Primary Care Provider] - Within 1 week Comments: Follow up with your doctor for further care. Crisis Line and is available to talk to someone [email or web address] is also available to chat with someone online if you prefer. There are also many resources on this website and apps for your phone to help with your mental health You can also text the word START to [phone] to chat with someome via text. You are welcome to return at any time should you change your mind about being seen and treated.
[2019-08-16 15:16] LABS: BASOPHILS % (AUTO) 0.3 %; EOSINOPHILS # (AUTO) 0.1 10^3/uL (0.0-0.7); EOSINOPHILS % (AUTO) 0.9 %; HGB - HEMOGLOBIN 14.6 g/dL (12.0-16.0); LYMPHOCYTES # (AUTO) 1.5 10^3/uL (1.5-3.5); LYMPHOCYTES % (AUTO) 13.6 %; MEAN CORPUSCULAR HGB CONC 34.2 g/dL (32.0-36.0); MEAN CORPUSCULAR VOLUME 93.6 fL (81.0-99.0); MEAN PLATELET VOLUME 9.3 fL (7.9-10.8); MONOCYTES # (AUTO) 0.8 10^3/uL (0.0-1.0); MONOCYTES % (AUTO) 7.5 %; NEUTROPHILS # (AUTO) 8.6 10^3/uL (1.5-6.6); NEUTROPHILS % (AUTO) 77.3 %; PLT - PLATELET COUNT 271 10^3/uL (130-450); RED BLOOD COUNT 4.56 10^6/uL (4.20-5.40); RED CELL DISTRIBUTION WIDTH 12.5 % (12.0-15.0); WHITE BLOOD COUNT 11.2 x10^3/uL (4.8-10.8)
[2019-08-16 15:20] VITALS: BP 128/98
[2019-08-16 15:33] LABS: ACETAMINOPHEN < 10 ug/mL (10-30); ALBUMIN 4.3 g/dL (3.2-5.5); ALBUMIN/GLOBULIN RATIO 1.7 (1.0-2.2); ALKALINE PHOSPHATASE 59 IU/L (42-121); ALT ALANINE AMINOTRANSFERASE 24 IU/L (10-60); AST ASPARTATE AMINOTRANSFERASE 28 IU/L (10-42); BILIRUBIN,TOTAL 0.5 mg/dL (0.2-1.0); BUN - BLOOD UREA NITROGEN < 5 mg/dL (6-20); CALCIUM 9.1 mg/dL (8.5-10.3); CARBON DIOXIDE - CO2 27 mmol/L (21-32); CHLORIDE 92 mmol/L (101-111); CREATININE 0.6 mg/dL (0.4-1.0); GLUCOSE 145 mg/dL (70-100); LIPASE 19 U/L (22-51); SALICYLATE < 6.0 mg/dL; SODIUM 128 mmol/L (135-145); TOTAL PROTEIN 6.9 g/dL (6.7-8.2)
== END 2019-08-16 15:38 | disposition home or self-care (01) ==
LOC: EDUNIT# → ED 14:56
DX: F41.0 Panic disorder [episodic paroxysmal anxiety] (principal); E11.9 Type 2 diabetes mellitus without complications
CPT/HCPCS: 36415; 80053; 80307; 80320; 80329; 83690; 84443; 85025; 99283; 99284

== ENCOUNTER 2019-09-08 13:37 | Outpatient (CLI) | payer MEDICAID | END 2019-09-08 13:38 | disposition EMS.NT | LOC: EMS 13:37 | PROVIDERS: ATTEND Surgery | DX: Z03.89 Encounter for observation for other suspected diseases and conditions ruled out (principal) ==

== ENCOUNTER 2019-09-11 08:00 | Outpatient (CLI) | payer MEDICAID ==
[2019-09-12 12:54] LABS: HEPATITIS A IGM NON-REACTIVE (NON-REACTIVE); HEPATITIS B SURFACE ANTIGEN NON-REACTIVE (NON-REACTIVE); HEPATITIS C ANTIBODY NON-REACTIVE (NON-REACTIVE)
== END 2019-09-11 23:59 | disposition home or self-care (01) ==
LOC: LAB.WCP 08:00
PROVIDERS: ATTEND Registered Nurse
DX: F10.20 Alcohol dependence, uncomplicated (principal); Z20.2 Contact with and (suspected) exposure to infections with a predominantly sexual mode of transmission
CPT/HCPCS: 36415; 80074; 81599; 86592

== ENCOUNTER 2019-09-13 07:26 | Outpatient (CLI) | payer MEDICAID ==
[2019-09-13 21:29] LABS: TRICHOMONAS VAGINALIS DNA NEGATIVE (NEGATIVE)
== END 2019-09-13 23:59 | disposition home or self-care (01) ==
LOC: LAB.R 07:26
PROVIDERS: ATTEND Family Medicine
DX: Z20.2 Contact with and (suspected) exposure to infections with a predominantly sexual mode of transmission (principal)
CPT/HCPCS: 87491; 87591; 87661

== ENCOUNTER 2019-09-22 07:00 | Outpatient (CLI) | payer MEDICAID ==
[2019-09-22 17:48] LABS: BASOPHILS # (AUTO) 0.1 10^3/uL (0.0-0.1); BASOPHILS % (AUTO) 0.5 %; EOSINOPHILS # (AUTO) 0.2 10^3/uL (0.0-0.7); EOSINOPHILS % (AUTO) 2.3 %; HGB - HEMOGLOBIN 14.6 g/dL (12.0-16.0); LYMPHOCYTES # (AUTO) 2.2 10^3/uL (1.5-3.5); MEAN CORPUSCULAR HEMOGLOBIN 32.4 pg (27.0-31.0); MEAN CORPUSCULAR HGB CONC 32.3 g/dL (32.0-36.0); MEAN CORPUSCULAR VOLUME 100.4 fL (81.0-99.0); MEAN PLATELET VOLUME 10.5 fL (7.9-10.8); MONOCYTES # (AUTO) 0.9 10^3/uL (0.0-1.0); MONOCYTES % (AUTO) 9.3 %; NEUTROPHILS # (AUTO) 5.8 10^3/uL (1.5-6.6); NEUTROPHILS % (AUTO) 63.6 %; PLT - PLATELET COUNT 243 10^3/uL (130-450); WHITE BLOOD COUNT 9.1 x10^3/uL (4.8-10.8)
[2019-09-22 17:56] LABS: ALBUMIN 4.1 g/dL (3.2-5.5); ALBUMIN/GLOBULIN RATIO 1.5 (1.0-2.2); BILIRUBIN,TOTAL 0.4 mg/dL (0.2-1.0); CALCIUM 9.3 mg/dL (8.5-10.3); CREATININE 0.6 mg/dL (0.4-1.0); TOTAL PROTEIN 6.8 g/dL (6.7-8.2)
[2019-09-22 19:13] LABS: FOLATE > 49.60 ng/mL (5.90 - >24.8)
[2019-09-23 07:25] LABS: HIV AG/AB 4TH GEN NON-REACTIVE (NON-REACTIVE)
== END 2019-09-22 23:59 | disposition home or self-care (01) ==
LOC: LAB.WCP 07:00
PROVIDERS: ATTEND Family Medicine
DX: R41.3 Other amnesia (principal); Z20.2 Contact with and (suspected) exposure to infections with a predominantly sexual mode of transmission
CPT/HCPCS: 36415; 80053; 82607; 82746; 84443; 85025; 87389

== ENCOUNTER 2019-10-19 13:29 | Outpatient (CLI) | payer MEDICAID ==
--- NOTE | 2019-10-19 15:00 | MRI Report ---
PROCEDURE: Brain W/O INDICATIONS: MEMORY LOSS/DIORIENTATION TECHNIQUE: Noncontrast axial T1 spin echo, axial T2 fast spin echo, sagittal and axial FLAIR, coronal T2 fast sp in echo, axial gradient echo, axial diffusion and ADC through the brain. COMPARISON: Head CT examination dated 01.07.18. FINDINGS: Image quality: Excellent. CSF Spaces: Basal cisterns are patent. No extra-axial fluid collections. Ventricles are normal in size and shape. Brain: No intracranial masses or hemorrhage. There is a mild degree of patchy high FLAIR signal int ensity within the bilateral periventricular and subcortical white matter, which is nonspecific in dis tribution. The largest of these is within the left posterior superior temporal lobe periventricular w jacquelyn matter, measuring 10 mm anteroposterior. Bear/white matter interface is normal. Brainstem appea rs normal. Diffusion-weighted images demonstrate no acute ischemic insult. No chronic ischemic insu lts. Normal intravascular flow voids are present. Skull and face: Calvarium has normal marrow signal. Orbits appear normal. Sinuses: Sinuses and mastoids are clear. IMPRESSION: 1. No acute process. No recent infarct. 2. Mild degree of nonspecific white matter disease. Differential considerations include small vessel ischemic disease, diabetes mellitus, vasculitides, and demyelinating disorders, such as multiple scle rosis. Reviewed by: Nat Ortega MD on 10/19/2019 2:58 PM PDT Approved by: Nat Ortega MD on 10/19/2019 2:58 PM PDT Station ID: [id number]
== END 2019-10-19 13:30 | disposition home or self-care (01) ==
LOC: DI 13:29
PROVIDERS: ATTEND Family Medicine
DX: R90.82 White matter disease, unspecified (principal)
CPT/HCPCS: 70551

== ENCOUNTER 2019-10-19 13:30 | Outpatient (CLI) | payer MEDICAID ==
--- NOTE | 2019-10-20 11:33 | Mammography Report ---
BILATERAL DIGITAL SCREENING MAMMOGRAM 3D/2D: 10/19/2019 CLINICAL: Routine screening. Comparison is made to exams dated: 11/15/2006 mammogram, 11/28/2013 mammogram, and 12/28/2013 mammogram - [facility]. There are scattered fibroglandular elements in both breasts. There is an oval asymmetry with a microlobulated margin in the left breast at 1 o'clock posterior dep th. This is more prominent and increased in size. No other significant masses, calcifications, or other findings are seen in either breast. IMPRESSION: INCOMPLETE: NEEDS ADDITIONAL IMAGING EVALUATION The oval asymmetry in the left breast is indeterminate. Additional views with possible ultrasound ar e recommended. This exam was interpreted at Station ID: [id number]. NOTE: For mammograms, a report in lay terms will be sent to the patient. Approximately 15% of breast malignancies will not be visualized mammographically. In the management of a palpable breast mass, a negative mammogram must not discourage biopsy of a clinically suspicious lesion. Electronically Signed By: Ruby torres/esther:10/19/2019 17:42:09 ACR BI-RADS Category 0: Incomplete 3340F PARENCHYMAL PATTERN: (A) - The breast(s) demonstrate(s) scattered fibroglandular densities. BI-RADS CATEGORY: (0) - 0 Mammo and [place] [id number] Immediate follow-up LATERALITY: (B)
== END 2019-10-19 13:31 | disposition home or self-care (01) ==
LOC: DI 13:30
PROVIDERS: ATTEND Family Medicine
DX: Z12.31 Encounter for screening mammogram for malignant neoplasm of breast (principal); R92.8 Other abnormal and inconclusive findings on diagnostic imaging of breast
CPT/HCPCS: 77063; 77067

== ENCOUNTER 2020-01-11 12:22 | Outpatient (CLI) | payer MEDICAID ==
[2020-01-11 19:18] LABS: ALBUMIN 4.2 g/dL (3.2-5.5); ALBUMIN/GLOBULIN RATIO 1.5 (1.0-2.2); BILIRUBIN,TOTAL 0.6 mg/dL (0.2-1.0); CALCIUM 9.7 mg/dL (8.5-10.3); CREATININE 0.8 mg/dL (0.4-1.0)
== END 2020-01-11 23:59 | disposition home or self-care (01) ==
LOC: LAB.WCP 12:22
PROVIDERS: ATTEND Family Medicine
DX: E87.6 Hypokalemia (principal)
CPT/HCPCS: 36415; 80053

== ENCOUNTER 2020-10-11 01:40 | Outpatient (CLI) | payer MEDICAID | END 2020-10-11 01:41 | disposition critical access hospital (66) | LOC: EMS 01:40 | DX: R56.9 Unspecified convulsions (principal); R11.10 Vomiting, unspecified; K13.79 Other lesions of oral mucosa | CPT/HCPCS: A0425; A0427; A0999 ==

== ENCOUNTER 2020-10-11 01:55 | Emergency (ER) | payer MEDICAID ==
[2020-10-11] MEDS ORDERED: SODIUM CHLORIDE 0.9% 1,000 ML IV STA (02:06)
[2020-10-11 02:51] LABS: BASOPHILS # (AUTO) 0.1 10^3/uL (0.0-0.1); BASOPHILS % (AUTO) 0.3 %; EOSINOPHILS # (AUTO) 0.1 10^3/uL (0.0-0.7); EOSINOPHILS % (AUTO) 0.3 %; HCT - HEMATOCRIT 34.5 % (37.0-47.0); HGB - HEMOGLOBIN 12.3 g/dL (12.0-16.0); LYMPHOCYTES # (AUTO) 0.8 10^3/uL (1.5-3.5); LYMPHOCYTES % (AUTO) 5.4 %; MEAN CORPUSCULAR HEMOGLOBIN 32.3 pg (27.0-31.0); MEAN CORPUSCULAR HGB CONC 35.7 g/dL (32.0-36.0); MEAN CORPUSCULAR VOLUME 90.6 fL (81.0-99.0); MEAN PLATELET VOLUME 8.3 fL (7.9-10.8); MONOCYTES # (AUTO) 0.8 10^3/uL (0.0-1.0); MONOCYTES % (AUTO) 5.4 %; NEUTROPHILS # (AUTO) 13.3 10^3/uL (1.5-6.6); NEUTROPHILS % (AUTO) 87.7 %; PLT - PLATELET COUNT 211 10^3/uL (130-450); RED BLOOD COUNT 3.81 10^6/uL (4.20-5.40); RED CELL DISTRIBUTION WIDTH 11.1 % (12.0-15.0); WHITE BLOOD COUNT 15.2 x10^3/uL (4.8-10.8)
[2020-10-11 03:05] LABS: ALBUMIN 4.1 g/dL (3.2-5.5); ALBUMIN/GLOBULIN RATIO 2.2 (1.0-2.2); BILIRUBIN,TOTAL 0.7 mg/dL (0.2-1.0); CALCIUM 7.8 mg/dL (8.5-10.3); CREATININE 0.6 mg/dL (0.4-1.0); POTASSIUM 3.3 mmol/L (3.5-5.0)
[2020-10-11] MEDS ORDERED: levETIRAcetam INJ 1,000 MG in SODIUM CHLORIDE 0.9% 100ML 100 ML IV STA (03:17)
[2020-10-11] MEDS ORDERED: ETOMIDATE 40 MG/20 ML VIAL IVP STA (03:26)
[2020-10-11] MEDS ORDERED: ROCURONIUM 50 MG/5 ML VIAL IVP STA (03:26)
[2020-10-11] MEDS ORDERED: PROPOFOL 500 MG/50 ML 500 MG/50 ML VIAL IV STA (03:27)
[2020-10-11] MEDS ORDERED: SODIUM CHLORIDE 3% HYPERTONIC 100 ML IV SCH (04:00)
[2020-10-11 04:10] LABS: ABG PH 7.23 (7.35-7.45)
[2020-10-11 04:11] LABS: ABG BASE EXCESS -11.7 mmol/L (-2.0-3.0); ABG HCO3 14.8 mmol/L (22.0-26.0); ABG OXYGEN SATURATION 95 % (94-98); ABG PCO2 36 mmHg (34-45); ABG PO2 82 mmHg (80-100); ABG TCO2 15.9 MMOL/L (21.0-29.0); ALLEN TEST POSITIVE
--- NOTE | 2020-10-11 04:11 | ED Physician Documentation ---
History of Present Illness - Stated complaint Stated Complaint: SEIZURE, SYNCOPE - Chief complaint Chief Complaint: Neuro - History obtained from History obtained from: EMS - Additonal information Additional information: 45-year-old woman with past medical history of psychiatric illness, possible substance abuse, idiopathic intracranial hypertension on acetazolamide, also in respiratory will, presents with first-time witnessed seizure seen by mother late this evening. Mother called EMS and upon their arrival they themselves witnessed a self-limiting 1.5-minute generalized tonic-clonic seizure that resolved without medication. Patient never returned to baseline and in the emergency department is postictal.Further history limited by patient acuity and altered mental status. Review of Systems Unable to obtain: Other (Unable to obtain secondary to patient confusion) PD PAST MEDICAL HISTORY - Past Medical History Past Medical History: Yes Cardiovascular: Atrial fibrillation Respiratory: None Neuro: None Endocrine/Autoimmune: Type 2 diabetes GI: None VETERANS ADVISER: None : None HEENT: None Psych: Depression Musculoskeletal: None Derm: None - Past Surgical History Past Surgical History: Yes General: Cholecystectomy HEENT: Tonsil/Adenoidectomy - Present Medications Home Medications: Ambulatory Orders Medication Instructions Recorded Confirmed acetaZOLAMIDE [Acetazolamide] 125 mg PO 10/11/20 risperiDONE [Risperdal] 2 mg PO DAILY 10/11/20 10/11/20 - Allergies Allergies/Adverse Reactions: Allergies Allergy/AdvReac Type Severity Reaction Status Date / Time latex AdvReac Itching Verified 08/16/19 15:08 - Social History Does the pt smoke?: No Smoking Status: Never smoker Does the pt drink ETOH?: Yes Does the pt have substance abuse?: No - Immunizations Immunizations are current?: Yes - POLST Patient has POLST: No PD ED PE NORMAL - Vitals Vital signs reviewed: Yes - General General: No acute distress, Other (Patient is protecting her airway, moaning, eye-opening spontaneously with extraocular movements intact.) - HEENT HEENT: Atraumatic, PERRL, EOMI - Neck Neck: Supple, no meningeal sign - Cardiac Cardiac: RRR - Respiratory Respiratory: No respiratory distress, Clear bilaterally - Abdomen Abdomen: Non tender, Non distended - Derm Derm: Normal color - Extremities Extremities: No deformity - Neuro Neuro: Other (Withdrawing extremities to pain, eye-opening spontaneously, intermittent moaning and mumbling.) - Psych Psych: Other (Postictal) Results - Vitals Vitals: Vital Signs - 24 hr 10/11/20 10/11/20 10/11/20 02:03 02:38 03:08 Temperature 36.6 C Heart Rate 118 H 106 H 101 H Respiratory 18 18 20 Rate Blood Pressure 129/76 128/98 H 146/81 H O2 Saturation 96 96 96 10/11/20 10/11/20 10/11/20 04:03 04:17 04:34 Temperature Heart Rate 101 H 74 94 Respiratory 17 16 Rate Blood Pressure 176/103 H 116/82 H O2 Saturation 95 96 Oxygen O2 Source Mechanical ventilator - EKG (time done) 0208 Rate: Rate (enter#) (133) Rhythm: Sinus tachycardia [place]: Normal Intervals: Normal NC QRS: Normal Other comments: Other comments (qt/qtc 360/536) - Labs Labs: Laboratory Tests 10/11/20 10/11/20 10/11/20 02:44 02:44 04:00 WBC 15.2 H RBC 3.81 L Hgb 12.3 Hct 34.5 L MCV 90.6 MCH 32.3 H MCHC 35.7 RDW 11.1 L Plt Count 211 MPV 8.3 Neut # (Auto) 13.3 H Lymph # (Auto) 0.8 L [place] # (Auto) 0.8 Eos # (Auto) 0.1 Baso # (Auto) 0.1 Absolute Nucleated RBC 0.00 Nucleated RBC % 0.0 Bld Gas Analysis Time 0409 Sample Site LEFT RADIAL ABG pH 7.23 L ABG pCO2 36 ABG pO2 82 ABG HCO3 14.8 L ABG Total CO2 15.9 L ABG O2 Saturation 95 ABG Base Excess -11.7 L [place] Test POSITIVE O2 Delivery Device NON REBREATHER MASK FiO2 15.00 Sodium 109 L* Potassium 3.3 L Chloride 81 L Carbon Dioxide 16 L Anion Gap 12.0 BUN 7 Creatinine 0.6 Estimated GFR (MDRD) 107 Glucose 226 H Calcium 7.8 L Total Bilirubin 0.7 AST 30 ALT 25 Alkaline Phosphatase 36 L Total Creatine Kinase 800 H Total Protein 6.0 L Albumin 4.1 Globulin 1.9 L Albumin/Globulin Ratio 2.2 Lipase 20 L Salicylates Acetaminophen Ethyl Alcohol 10/11/20 04:10 WBC RBC Hgb Hct MCV MCH MCHC RDW Plt Count MPV Neut # (Auto) Lymph # (Auto) [place] # (Auto) Eos # (Auto) Baso # (Auto) Absolute Nucleated RBC Nucleated RBC % Bld Gas Analysis Time Sample Site ABG pH ABG pCO2 ABG pO2 ABG HCO3 ABG Total CO2 ABG O2 Saturation ABG Base Excess [place]osta Test O2 Delivery Device FiO2 Sodium 109 L* Potassium 3.2 L Chloride 81 L Carbon Dioxide 17 L Anion Gap 11.0 BUN 6 Creatinine 0.6 Estimated GFR (MDRD) 107 Glucose 202 H Calcium 7.6 L Total Bilirubin AST ALT Alkaline Phosphatase Total Creatine Kinase Total Protein Albumin Globulin Albumin/Globulin Ratio Lipase Salicylates < 6.0 Acetaminophen < 10 L Ethyl Alcohol < 5.0 PD MEDICAL DECISION MAKING - ED course ED course: Patient never returned to baseline and had another generalized tonic-clonic seizure about an hour into arrival. Her sodium just came back at that time at 109. decision made to intubate, administer keppra, propofol, normal saline. We do not have 3% saline. Dr. Bourne, medical toxicology- definitely a possibility Given her non-anion gap acidosis. Recommends supportive care at this time, magnesium in case this is a coingestion with risperdal. d/w Dr. Gorman, [facility] at [facility] for transfer. Departure - Departure Disposition: 02 Transfer Acute Care Hosp Clinical Impression: Hyponatremia, Seizure, Metabolic acidosis Condition: Serious
[2020-10-11] MEDS ORDERED: MAGNESIUM SULFATE 2 GRAM 2 GM/50 ML BAG IV ONE (04:13)
[2020-10-11] MEDS ORDERED: MIDAZOLAM 2 MG/2 ML VIAL IM STA (04:30)
[2020-10-11 04:35] LABS: ACETAMINOPHEN < 10 ug/mL (10-30); BUN - BLOOD UREA NITROGEN 6 mg/dL (6-20); CALCIUM 7.6 mg/dL (8.5-10.3); CARBON DIOXIDE - CO2 17 mmol/L (21-32); CHLORIDE 81 mmol/L (101-111); CREATININE 0.6 mg/dL (0.4-1.0); ETOH - ETHANOL < 5.0 mg/dL; GFR - MDRD 107 (>89); GLUCOSE 202 mg/dL (70-100); POTASSIUM 3.2 mmol/L (3.5-5.0); SALICYLATE < 6.0 mg/dL
[2020-10-11 04:36] LABS: SODIUM 109 mmol/L (135-145)
[2020-10-11 04:43] LABS: HCG,QUALITATIVE BLOOD NEGATIVE
[2020-10-11 04:50] VITALS: BP 116/82
[2020-10-11 05:18] LABS: B. PARAPERTUSSIS- RESP PCR PAN NOT DETECTED; B. PERTUSSIS- RESP PCR PANEL NOT DETECTED; CORONAVIRUS 229E-RESP PCR NOT DETECTED; CORONAVIRUS HKU1-RESP PCR NOT DETECTED; CORONAVIRUS NL63-RESP PCR NOT DETECTED; CORONAVIRUS OC43-RESP PCR NOT DETECTED; HUMAN METAPNEUMOVIRUS NOT DETECTED; INFLUENZA A- RESP PCR PANEL NOT DETECTED; INFLUENZA B - RESP PCR PANEL NOT DETECTED; PARAINFLUENZA VIRUS 1 NOT DETECTED; PARAINFLUENZA VIRUS 2 NOT DETECTED; PARAINFLUENZA VIRUS 3 NOT DETECTED; PARAINFLUENZA VIRUS 4 NOT DETECTED; RHINOVIRUS/ENTEROVIRUS NOT DETECTED; RSV- RESP PCR PANEL NOT DETECTED; SARS-CoV-2 -RESP PCR PANEL NOT DETECTED
[2020-10-11 05:19] LABS: C. PNEUMONIAE- RESP PCR PANEL NOT DETECTED; M. PNEUMONIAE- RESP PCR PANEL NOT DETECTED
--- NOTE | 2020-10-11 07:55 | CT Report ---
PROCEDURE: HEAD WO INDICATIONS: first time seizure, hx IIH TECHNIQUE: Noncontrast 4.5 mm thick angled axial sections acquired from the foramen magnum to the vertex. For r adiation dose reduction, the following was used: automated exposure control, adjustment of mA and/or kV according to patient size. COMPARISON: CT without contrast, 01/07/2018. FINDINGS: Image quality: There are motion artifacts. CSF spaces: Basal cisterns are patent. No extra-axial fluid collections. Ventricles are normal in size and shape. Brain: No midline shift. No intracranial masses or hemorrhage. Bear-white matter interface is norm al. Hypodensity is noted in the left occipital lobe adjacent to occipital horn of the lateral ventri rosetta, compatible with chronic small vessel ischemic change. Skull and face: Calvarium and visualized facial bones are intact, without suspicious lesions. Sinuses: Visualized sinuses and mastoids are clear. IMPRESSION: 1. There are motion artifact. No acute intracranial abnormality. 2. Mild chronic small vessel ischemic change in the left occipital lobe. No significant discrepancy with the preliminary interpretation. Reviewed by: Dallas Otto MD on 10/11/2020 7:53 AM PDT Approved by: Dallas Otto MD on 10/11/2020 7:53 AM PDT Station ID: [id number]
--- NOTE | 2020-10-11 08:31 | XRAY Report ---
PROCEDURE: Chest 1 View X-Ray INDICATIONS: line placement TECHNIQUE: One view of the chest was acquired. COMPARISON: Chest single view 01/07/2018 FINDINGS: Surgical changes and devices: Endotracheal and esophagogastric tube normal. Lungs and pleura: No pleural effusions or pneumothorax. Lungs are abnormal with reduced inspiratory volume and what appears to be likely aspiration or pneumonia left upper lung. Alveolar edema may be superimposed, but difficult to definitively establish in the setting of prominently reduced inspirati on.. Mediastinum: Mediastinal contours appear normal. Heart size is normal. Bones and chest wall: No suspicious bony lesions. Overlying soft tissues appear unremarkable. IMPRESSION: Tubes normal, suspect aspiration or pneumonia left upper lobe. Prominently reduced inspiratory volume -pulmonary edema could be superimposed. Reviewed by: Derrick Marmolejo MD on 10/11/2020 8:30 AM PDT Approved by: Derrick Marmolejo MD on 10/11/2020 8:30 AM PDT Station ID: [id number]
== END 2020-10-11 05:17 | disposition short-term general hospital (02) ==
LOC: ED 01:55
DX: R56.9 Unspecified convulsions (principal); E87.1 Hypo-osmolality and hyponatremia; E87.2 Acidosis; R00.0 Tachycardia, unspecified; Z20.822 Contact with and (suspected) exposure to COVID-19; G93.2 Benign intracranial hypertension; E11.9 Type 2 diabetes mellitus without complications
CPT/HCPCS: 0202U; 31500; 36415; 36600; 70450; 71045; 80048; 80053; 80307; 80320; 80329; 82550; 82803; 83605; 83690; 83930; 84703; 85025; 93005; 96365; 96367; 96375; 99285; 99291; 83935

== ENCOUNTER 2020-10-30 08:00 | Outpatient (CLI) | payer MEDICAID ==
[2020-10-30 18:13] LABS: CALCIUM 9.7 mg/dL (8.5-10.3); CREATININE 0.8 mg/dL (0.4-1.0); MAGNESIUM 2.2 mg/dL (1.7-2.8); POTASSIUM 4.7 mmol/L (3.5-5.0)
[2020-10-30 18:30] LABS: THYROID STIMULATING HORMONE 1.16 uIU/mL (0.34-5.60)
[2020-10-30 18:32] LABS: FREE T3 3.26 pg/mL (2.5-3.9); FREE T4 (FREE THYROXINE) 0.91 ng/dL (0.58-1.64)
[2020-10-30 20:34] LABS: ESTIMATED AVERAGE GLUCOSE 114 mg/dL (70-100); HEMOGLOBIN A1c% 5.6 % (4.27-6.07)
== END 2020-10-30 23:59 | disposition home or self-care (01) ==
LOC: LAB.WCP 08:00
PROVIDERS: ATTEND Family Medicine
DX: R73.9 Hyperglycemia, unspecified (principal); Z86.39 Personal history of other endocrine, nutritional and metabolic disease; R00.0 Tachycardia, unspecified; R63.4 Abnormal weight loss
CPT/HCPCS: 36415; 80048; 83036; 83735; 84439; 84443; 84481

== ENCOUNTER 2020-11-02 19:23 | Outpatient (CLI) | payer MEDICAID | END 2020-11-02 19:24 | disposition critical access hospital (66) | LOC: EMS 19:23 | DX: R63.8 Other symptoms and signs concerning food and fluid intake (principal) | CPT/HCPCS: A0425; A0429; A0999 ==

== ENCOUNTER 2020-11-02 19:50 | Inpatient (IN) | payer MEDICAID ==
[2020-11-02 20:24] LABS: BASOPHILS % (AUTO) 0.2 %; EOSINOPHILS # (AUTO) 0.1 10^3/uL (0.0-0.7); EOSINOPHILS % (AUTO) 1.1 %; HCT - HEMATOCRIT 34.3 % (37.0-47.0); HGB - HEMOGLOBIN 11.9 g/dL (12.0-16.0); LYMPHOCYTES # (AUTO) 1.5 10^3/uL (1.5-3.5); LYMPHOCYTES % (AUTO) 12.7 %; MEAN CORPUSCULAR HGB CONC 34.7 g/dL (32.0-36.0); MEAN CORPUSCULAR VOLUME 92.2 fL (81.0-99.0); MEAN PLATELET VOLUME 8.2 fL (7.9-10.8); MONOCYTES # (AUTO) 1.2 10^3/uL (0.0-1.0); MONOCYTES % (AUTO) 10.3 %; NEUTROPHILS # (AUTO) 8.7 10^3/uL (1.5-6.6); NEUTROPHILS % (AUTO) 75.2 %; PLT - PLATELET COUNT 270 10^3/uL (130-450); RED BLOOD COUNT 3.72 10^6/uL (4.20-5.40); RED CELL DISTRIBUTION WIDTH 11.6 % (12.0-15.0); WHITE BLOOD COUNT 11.6 x10^3/uL (4.8-10.8)
[2020-11-02 20:27] LABS: BILIRUBIN,URINE NEGATIVE (NEGATIVE); GLUCOSE, URINE (UA) NEGATIVE (NEGATIVE); KETONES,URINE (UA) NEGATIVE (NEGATIVE); LEUKOCYTE ESTERASE, URINE NEGATIVE (NEGATIVE); NITRITE,URINE NEGATIVE (NEGATIVE); OCCULT BLOOD,URINE NEGATIVE (NEGATIVE); PROTEIN,URINE NEGATIVE (NEGATIVE); UROBILINOGEN,URINE 0.2 (NORMAL) E.U./dL (NORMAL)
[2020-11-02 20:30] LABS: CLARITY,URINE CLEAR (CLEAR)
[2020-11-02 20:31] LABS: HCG UR QUAL NEGATIVE
[2020-11-02 20:37] LABS: MUDS CUTOFF CONCENTRATIONS CUTOFF CONC BELOW:
[2020-11-02 20:41] LABS: ACETAMINOPHEN < 10 ug/mL (10-30); ALBUMIN 3.9 g/dL (3.2-5.5); ALBUMIN/GLOBULIN RATIO 1.6 (1.0-2.2); ALKALINE PHOSPHATASE 48 IU/L (42-121); ALT ALANINE AMINOTRANSFERASE 19 IU/L (10-60); AST ASPARTATE AMINOTRANSFERASE 23 IU/L (10-42); BILIRUBIN,TOTAL 0.8 mg/dL (0.2-1.0); BUN - BLOOD UREA NITROGEN 8 mg/dL (6-20); CALCIUM 8.7 mg/dL (8.5-10.3); CARBON DIOXIDE - CO2 23 mmol/L (21-32); CHLORIDE 82 mmol/L (101-111); CREATININE 0.4 mg/dL (0.4-1.0); ETOH - ETHANOL < 5.0 mg/dL; GFR - MDRD 171 (>89); GLUCOSE 138 mg/dL (70-100); MAGNESIUM 1.4 mg/dL (1.7-2.8); PHOSPHORUS 2.5 mg/dL (2.5-4.6); POTASSIUM 3.9 mmol/L (3.5-5.0); SALICYLATE < 6.0 mg/dL; TOTAL PROTEIN 6.4 g/dL (6.7-8.2)
[2020-11-02 20:45] LABS: SODIUM 114 mmol/L (135-145)
[2020-11-02] MEDS ORDERED: ONDANSETRON 4 MG/2 ML VIAL IVP PRN (20:56)
[2020-11-02] MEDS ORDERED: SODIUM CHLORIDE FLUSH 0.9% 10 ML SYRINGE IVP PRN (20:56)
[2020-11-02] MEDS ORDERED: ONDANSETRON ODT 4 MG TABLET TL PRN (20:56)
[2020-11-02] MEDS ORDERED: ACETAMINOPHEN 325 MG TABLET PO PRN (20:56)
--- NOTE | 2020-11-02 21:01 | ED Physician Documentation ---
PD HPI ALTERED MENTAL STATUS - Stated complaint Stated Complaint: EXCESSIVE, INTENTIONAL WATER INTAKE - Chief complaint Chief Complaint: MHE - History obtained from History obtained from: Patient - Additional information Additional information: 45-year-old woman with psychiatric illness presents with excessive water intake. She was seen in September for status epilepticus found due to profound hyponatremia down to 109 and was intubated and sent to [facility]. 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 Again history is limited by delirium. Review of Systems Unable to obtain: Confused PD PAST MEDICAL HISTORY - Past Medical History Cardiovascular: Atrial fibrillation Respiratory: None Neuro: None Endocrine/Autoimmune: Type 2 diabetes GI: None PHYSICIAN CODING SPECIALIST: None : None HEENT: None Psych: Depression Musculoskeletal: None Derm: None - Past Surgical History Past Surgical History: Yes General: Cholecystectomy HEENT: Tonsil/Adenoidectomy - Present Medications Home Medications: Ambulatory Orders Medication Instructions Recorded Confirmed acetaZOLAMIDE [Acetazolamide] 125 mg PO 10/11/20 risperiDONE [Risperdal] 2 mg PO DAILY 10/11/20 10/11/20 - Allergies Allergies/Adverse Reactions: Allergies Allergy/AdvReac Type Severity Reaction Status Date / Time latex AdvReac Itching Verified 11/02/20 19:56 - Social History Does the pt smoke?: No Smoking Status: Never smoker Does the pt drink ETOH?: Yes Does the pt have substance abuse?: No - Immunizations Immunizations are current?: Yes - POLST Patient has POLST: No PD ED PE NORMAL - Vitals Vital signs reviewed: Yes - General General: Other (And oriented to person, can give some historical elements but otherwise is a fairly useless historian) - HEENT HEENT: PERRL, EOMI - Neck Neck: Supple, no meningeal sign, No bony TTP - Cardiac Cardiac: Other (Tachycardic but regular without murmur) - Respiratory Respiratory: No respiratory distress, Clear bilaterally - Abdomen Abdomen: Soft, Non tender - Back Back: No CVA TTP, No spinal TTP - Derm Derm: Normal color, Warm and dry - Extremities Extremities: No edema, No calf tenderness / cord - Neuro Eye Opening: Spontaneous Motor: Obeys Commands Verbal: Incomprehensible GCS Score: 12 Results - Vitals Vitals: Vital Signs - 24 hr 11/02/20 19:56 Temperature 36.6 C Heart Rate 124 H Respiratory 16 Rate Blood Pressure 160/90 H O2 Saturation 98 Oxygen O2 Source Room air - EKG (time done) 2015 Rate: Rate (enter#) (117) Rhythm: Sinus tachycardia, LAE [place]: Normal Intervals: Normal NC QRS: Normal Ischemia: Normal ST segments Computer interpretation: Agree with computer - Labs Labs: Laboratory Tests 11/02/20 11/02/20 11/02/20 20:05 20:05 20:20 WBC 11.6 H RBC 3.72 L Hgb 11.9 L Hct 34.3 L MCV 92.2 MCH 32.0 H MCHC 34.7 RDW 11.6 L Plt Count 270 MPV 8.2 Neut # (Auto) 8.7 H Lymph # (Auto) 1.5 [place] # (Auto) 1.2 H Eos # (Auto) 0.1 Baso # (Auto) 0.0 Absolute Nucleated RBC 0.00 Nucleated RBC % 0.0 Sodium Potassium Chloride Carbon Dioxide Anion Gap BUN Creatinine Estimated GFR (MDRD) Glucose Calcium Phosphorus Magnesium Total Bilirubin AST ALT Alkaline Phosphatase Total Protein Albumin Globulin Albumin/Globulin Ratio TSH Urine Color YELLOW Urine Clarity CLEAR Urine pH 6.0 Ur Specific [place] <=1.005 Urine Protein NEGATIVE Urine Glucose (UA) NEGATIVE Urine Ketones NEGATIVE Urine Occult Blood NEGATIVE Urine Nitrite NEGATIVE Urine Bilirubin NEGATIVE Urine Urobilinogen 0.2 (NORMAL) Ur Leukocyte Esterase NEGATIVE Ur Microscopic Review NOT INDICATED Urine Culture Comments NOT INDICATED Urine HCG, Qual NEGATIVE Nasal Adenovirus (PCR) Nasal B. parapertussis DNA (PCR) Nasal Coronavir 229E PCR Nasal Coronavir HKU1 PCR Nasal Coronavir NL63 PCR Nasal Coronavir OC43 PCR Nasal Enterovir/Rhinovir PCR Nasal Influenza B PCR Nasal Influenza A PCR Nasal Parainfluen 1 PCR Nasal Parainfluen 2 PCR Nasal Parainfluen 3 PCR Nasal Parainfluen 4 PCR Nasal RSV (PCR) Nasal B.pertussis DNA PCR Nasal C.pneumoniae (PCR) Shoaib Human Metapneumo PCR Nasal M.pneumoniae (PCR) Nasal SARS-CoV-2 (PCR) Salicylates Urine Opiates Screen NEGATIVE Ur Oxycodone Screen NEGATIVE Urine Methadone Screen NEGATIVE Ur Propoxyphene Screen NEGATIVE Acetaminophen Ur Barbiturates Screen NEGATIVE Ur Tricyclics Screen NEGATIVE Ur Phencyclidine Scrn NEGATIVE Ur Amphetamine Screen NEGATIVE U Methamphetamines Scrn NEGATIVE U Benzodiazepines Scrn NEGATIVE Urine Cocaine Screen NEGATIVE U Cannabinoids Screen NEGATIVE Ethyl Alcohol 11/02/20 11/02/20 11/02/20 20:20 20:20 20:32 WBC RBC Hgb Hct MCV MCH MCHC RDW Plt Count MPV Neut # (Auto) Lymph # (Auto) [place] # (Auto) Eos # (Auto) Baso # (Auto) Absolute Nucleated RBC Nucleated RBC % Sodium 114 L* Potassium 3.9 Chloride 82 L Carbon Dioxide 23 Anion Gap 9.0 BUN 8 Creatinine 0.4 Estimated GFR (MDRD) 171 Glucose 138 H Calcium 8.7 Phosphorus 2.5 Magnesium 1.4 L Total Bilirubin 0.8 AST 23 ALT 19 Alkaline Phosphatase 48 Total Protein 6.4 L Albumin 3.9 Globulin 2.5 Albumin/Globulin Ratio 1.6 TSH 1.40 Urine Color Urine Clarity Urine pH Ur Specific [place] Urine Protein Urine Glucose (UA) Urine Ketones Urine Occult Blood Urine Nitrite Urine Bilirubin Urine Urobilinogen Ur Leukocyte Esterase Ur Microscopic Review Urine Culture Comments Urine HCG, Qual Nasal Adenovirus (PCR) NOT DETECTED Nasal B. parapertussis DNA (PCR) NOT DETECTED Nasal Coronavir 229E PCR NOT DETECTED Nasal Coronavir HKU1 PCR NOT DETECTED Nasal Coronavir NL63 PCR NOT DETECTED Nasal Coronavir OC43 PCR NOT DETECTED Nasal Enterovir/Rhinovir PCR NOT DETECTED Nasal Influenza B PCR NOT DETECTED Nasal Influenza A PCR NOT DETECTED Nasal Parainfluen 1 PCR NOT DETECTED Nasal Parainfluen 2 PCR NOT DETECTED Nasal Parainfluen 3 PCR NOT DETECTED Nasal Parainfluen 4 PCR NOT DETECTED Nasal RSV (PCR) NOT DETECTED Nasal B.pertussis DNA PCR NOT DETECTED Nasal C.pneumoniae (PCR) NOT DETECTED Shoaib Human Metapneumo PCR NOT DETECTED Nasal M.pneumoniae (PCR) NOT DETECTED Nasal SARS-CoV-2 (PCR) NOT DETECTED Salicylates < 6.0 Urine Opiates Screen Ur Oxycodone Screen Urine Methadone Screen Ur Propoxyphene Screen Acetaminophen < 10 L Ur Barbiturates Screen Ur Tricyclics Screen Ur Phencyclidine Scrn Ur Amphetamine Screen U Methamphetamines Scrn U Benzodiazepines Scrn Urine Cocaine Screen U Cannabinoids Screen Ethyl Alcohol < 5.0 PD MEDICAL DECISION MAKING - ED course ED course: 45-year-old woman presents with delirium and altered mental status likely related to hyponatremia due to psychogenic polydipsia. 3% bolus of saline was ordered, 50 mL [address] spoke with Dr[address] Farrell for admission at 9 PM. - Critical Care Time(min): 38 Time Includes: Direct patient care, Review records, Reassess patient, Document care, Coordinate care, Medical consult Data interpretation: Labs Procedures excluded from critical care time: EKG Departure - Departure Disposition: 66 [facility] DC/Xfer Clinical Impression: Affective psychosis, Acute hyponatremia Altered mental status Qualifiers: Altered mental status type: disorientation Qualified Code(s): R41.0 - Disorientation, unspecified Condition: Critical Discharge Date/Time: 11/02/20 21:49
[2020-11-02 21:03] LABS: AMPHETAMINE SCREEN,URINE NEGATIVE (NEGATIVE); BARBITURATE SCREEN,UR NEGATIVE (NEGATIVE); BENZODIAZEPINES SCREEN, URINE NEGATIVE (NEGATIVE); COCAINE SCREEN URINE NEGATIVE (NEGATIVE); METHADONE SCREEN, URINE NEGATIVE (NEGATIVE); METHAMPHETAMINES SCREEN, URINE NEGATIVE (NEGATIVE); OPIATE SCREEN, URINE NEGATIVE (NEGATIVE); OXYCODONE SCREEN, URINE NEGATIVE (NEGATIVE); PROPOXYPHENE SCREEN, URINE NEGATIVE (NEGATIVE); THC CANNABINOID SCREEN, URINE NEGATIVE (NEGATIVE); TRICYCLIC ANTIDEPRESSANT,URINE NEGATIVE (NEGATIVE)
[2020-11-02 21:36] LABS: B. PARAPERTUSSIS- RESP PCR PAN NOT DETECTED; B. PERTUSSIS- RESP PCR PANEL NOT DETECTED; C. PNEUMONIAE- RESP PCR PANEL NOT DETECTED; CORONAVIRUS 229E-RESP PCR NOT DETECTED; CORONAVIRUS HKU1-RESP PCR NOT DETECTED; CORONAVIRUS NL63-RESP PCR NOT DETECTED; CORONAVIRUS OC43-RESP PCR NOT DETECTED; HUMAN METAPNEUMOVIRUS NOT DETECTED; INFLUENZA A- RESP PCR PANEL NOT DETECTED; INFLUENZA B - RESP PCR PANEL NOT DETECTED; M. PNEUMONIAE- RESP PCR PANEL NOT DETECTED; PARAINFLUENZA VIRUS 1 NOT DETECTED; PARAINFLUENZA VIRUS 2 NOT DETECTED; PARAINFLUENZA VIRUS 3 NOT DETECTED; PARAINFLUENZA VIRUS 4 NOT DETECTED; RHINOVIRUS/ENTEROVIRUS NOT DETECTED; RSV- RESP PCR PANEL NOT DETECTED; SARS-CoV-2 -RESP PCR PANEL NOT DETECTED
[2020-11-02] MEDS: SODIUM CHLORIDE 3% HYPERTONIC 500 ML IV SCH (22:00)
--- NOTE | 2020-11-02 22:22 | HISTORY & PHYSICAL EXAMINATION ---
Chief Complaint - Chief Complaint Chief Complaint: confusion History of Present Illness - Admitted From Admitted From:: home via EMS - History Obtained From Records Reviewed: [employer] and [employer], and IA summary from [facility] History obtained from: Dr. Mcgee Exam Limitations: she is confused, speech not lucid, not able to give a hx - History of Present Illness HPI Comment/Other: 45-year-old female who was just here last week with hyponatremia due to polydipsia. The hyponatremia was severe enough that she was having seizures/intubated and she was transferred to [facility]. Unclear what the discharge plan was and while there she was seen by neurology, nephrology, rheumatology and neuro-ophthalmology. They felt that she was bipolar with schizophrenia. Had secondary diagnosis of rhabdomyolysis, obsessive-compulsive disorder. The rhabdomyolysis was due to intractable seizures that required intubation. Keppra was used for a short time but discontinued. She was discharged to home to be followed by her primary care provider. They recommended monthly labs. To try and continue to identify the triggering event for her polydipsia resulting in hyponatremia. Nephrology emphasized the need for solute intake with fluids including juices and Gatorade as well as eating salt and protein regularly. she returns being brought in by ambulance with confusion. She is again drinking excessive amounts of water intentionally. She endorses that history. She is mumbling, keeps on insisting that she needs to drink more water. She was evaluated by the emergency room physician where temperature was 36.6. Heart rate 124. Blood pressure 160/90. Respirations 16 and 98% on room air. She is oriented to only to self. She was tachycardic. Eyes were opening, she was obeying commands, but her speech speech patterns were incomprehensible. Sodium was 114. Potassium 3.9. BUN 8, creatinine 0.4. TSH 1.4. She is now placed in the ICU for hyponatremia. Dr. Mcgee has ordered hypertonic saline.In the ICU, the faucet to the sink has been turned off. They put a sofa in front of the bathroom so she can have access to the bathroom. And using a bedside commode she got up, and turned around to try and drink the urine out of the bedside commode. Her outpatient clinical record was reviewed. In the past she is taking tizanadine and alprazolam. She had depression, anxiety, and chronic low back pain. The depression started in 2004 and she has been tried on Zoloft, Celexa, and Effexor. The alprazolam started approximately 2015. Insomnia was a significant component to her anxiety. 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 But she was only able to work August through December 2018. Throughout this time she struggled with delusions, hearing voices. She felt that she was a "sinful person" and would pray for hours at a time. It was tied in with "original sin". She was hospitalized at [facility] in May 2018. She was a constant daily drinker as well. She was discharged at that time to follow-up with [facility] Discharge medications at that time included gabapentin, hydroxyzine, Risperdal, venlafaxine, and trazodone. In the outpatient setting she was still having intrusive thoughts. She really felt that Ativan eliminated those thoughts. She entered into a controlled substance agreement June 2019 for the Ativan. In spite of numerous interventions with altering of medications, she continued deteriorate with psychotic features, anxiety, and memory loss. By September 2019 she was complaining of being thirsty all the time. She was drinking lots of water and it was not helping. MRI of the head has been negative. Neurology ordered an EEG October 2019. As well as neuropsych eval. They do feel that she has idiopathic intracranial hypertension. She was started on treatment with acetazolamide. However the patient had problems with following through. History - Past Medical History Cardiovascular: reports: Atrial fibrillation Respiratory: reports: None Neuro: reports: None Endocrine/Autoimmune: reports: Type 2 diabetes GI: reports: None MOLD FILLER PLASTIC DOLLS: reports: Other () : reports: None HEENT: reports: None Psych: reports: Depression, Anxiety (With benzodiazepine abuse. In spite of numerous warnings to not overuse her alprazolam, the patient was doubling or tripling her alprazolam and running out of prescriptions very quickly in 2018. Went into AA 2019 w a sponsor to help. ), Other (some of episodes w fixation that she was committing sins, and spent hours praying. was hearing voices.) Musculoskeletal: reports: None, Chronic back pain Derm: reports: None MRSA Hx?: No - Past Surgical History General: reports: Cholecystectomy HEENT: reports: Tonsil/Adenoidectomy - Family & Social History Family History Comment/Other: There is a history of alcoholism in her parents and siblings. Also history of depression. Mom had breast cancer, heart disease and hypertension, IBS. anxiety Living arrangement: At home Living Situation: Alone Social History Notes: A former she used to smoke a quarter of a pack per day. But only smoked for a year in [id number]. She used to vape but stopped doing that in 2017. Resumed smoking and is a 2 ppd smoker. Alcohol abuse is not noted. Employment was that as a addiction social worker. She quit 12/2017 due to anxiety. 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 from who had schizophrenia. Lives w mom. Strained relationship. - POLST Patient has POLST: No POLST Status: Full Code Meds/Allgy - Home Medications Home Medications: Ambulatory Orders Medication Instructions Recorded Confirmed acetaZOLAMIDE [Acetazolamide] 125 mg PO 10/11/20 risperiDONE [Risperdal] 2 mg PO DAILY 10/11/20 10/11/20 - Allergies Allergies/Adverse Reactions: Allergies Allergy/AdvReac Type Severity Reaction Status Date / Time latex AdvReac Itching Verified 11/02/20 19:56 Review of Systems - Other Findings Other Findings: ROS from her office chart visit from 10/30. She cannot give us ROS tonight. General No headache. Eyes No blurred vision or diplopia. ENT No tinnitus. No trouble swallowing. CV No chest pain or chest tightness. Resp No exertional dyspnea, PND or orthopnea. GI Patient has lost significant amount of weight over a period of time and this is a little bit of concern. She only eats one meal a day and she is not that hungry, but she is feeling fairly comfortable. Patient is incontinent and has to use Depends. She has urinary frequency, but the UA dipstick is negative. Prior Level of Functionality: Excessive washing of her face that is resulted in cracked skin. She needs prompting to dress herself, feed herself. But she is able to do it on her own. She will go through episodes of not bathing. She does not use any durable medical equipment. She needs constant supervision more because of behavior. Exam - Vital Signs Reviewed Vital Signs: Yes Vital Signs: Vital Signs x48h Temp Pulse Resp BP Pulse Ox 11/02/20 21:27 109 H 24 160/97 H 96 11/02/20 19:56 36.6 C 124 H 16 160/90 H 98 - Physical Exam General Appearance: positive: Alert, Mild distress, Other (diffusely diaphoretic w hair plastered down, constanting getting up to urinate and wants to drink water) Eyes Bilateral: positive: PERRL, EOMI ENT: positive: No signs of dehydration Neck: positive: No JVD. negative: Stiff neck Respiratory: positive: No respiratory distress. negative: Wheezes, Rales, Rhonchi Cardiovascular: positive: Regular rate & rhythm. negative: Gallop/S4, Friction rub Peripheral Pulses: positive: 1+ Abdomen: positive: Non-tender, No organomegaly, Nml bowel sounds, No distention, Tenderness Skin: positive: Warm, Dry, Diaphoresis, Pallor Extremities: positive: Full ROM, No pedal edema Neurologic/Psychiatric: positive: CN's nml (2-12), Motor nml, Disoriented to place, Disoriented to time, Other (follows commands but needs 1:1 supervision to keep her in bed and away from sinks.) Conclusion/Plan - Problem List (1) Metabolic encephalopathy Conclusion/Plan: Due to hyponatremia. When she was discharged from [facility], she was alert, oriented with flat affect. With this episode she is acutely confused again. Plan: Correct underlying hyponatremia to correct the encephalopathy. (2) Acute hyponatremia Conclusion/Plan: From intentional water intake. Unclear what drives this patient. She has been excessively thirsty, and having increased water intake for close to 2 years now. However the behaviors escalated to the point that it resulted in a possible danger to her life. She is not actively suicidal, and does not tell me she wants to . But she clearly does not understand the link between the low sodium, and excessive water intake to could possibly result in her . Obdulio tazolamide treatment has failed. Albeit it was for intracranial hypertension which is a diagnosis that is in dispute. She is due to get another lumbar puncture in the near future to test that diagnosis. In the meantime she will be receiving hypertonic saline. Recheck electrolytes in 6 hours. I would strongly recommend that this patient be evaluated at a tertiary care Medical Center. Although she had anxiety and depression in the past, it was well controlled. Behavior started deteriorating with escalation of benzodiazepine use and subsequent psychosis, delusions in 2018. (3) Controlled type 2 diabetes mellitus without complication, without long-term current use of insulin Conclusion/Plan: A1c at [facility] was 5.5%. Random glucose is 138. Will wait to see with glucoses tomorrow morning before instituting sliding scale insulin (4) Affective psychosis Conclusion/Plan: Unknown type of psychosis and thought process. She has been labeled as everything from depression with anxiety, obsessive-compulsive disorder, schizoaffective, bipolar. And I do not know if her problem is all psychiatric leading to subsequent metabolic disorders. Or does she have some as yet undiagnosed organic disease that is leading to the psychiatric disorder. I strongly feel this patient would be better served by being evaluated in a tertiary care Medical Center if possible. - Lab Results Lab results reviewed: Yes Vern Bones: 11/02/20 20:20 11/02/20 20:20 - EKG Results EKG Interpreted Independently: Yes EKG Comparison: Unchanged from prior EKG EKG Findings: Rhythm with tachycardia. This was present with her [facility] evaluation as well. Core Measures - Anticipated LOS I expect patient to be DC'd or transferred within 96 hours.: Yes - DVT/VTE - Prophylaxis VTE/DVT Device ordered at admit?: Yes
[2020-11-03 02:09] LABS: CALCIUM 9.3 mg/dL (8.5-10.3); CREATININE 0.5 mg/dL (0.4-1.0); POTASSIUM 4.1 mmol/L (3.5-5.0)
[2020-11-03 06:29] LABS: CALCIUM 9.1 mg/dL (8.5-10.3); CREATININE 0.5 mg/dL (0.4-1.0); POTASSIUM 4.6 mmol/L (3.5-5.0)
[2020-11-03] MEDS: SODIUM CHLORIDE FLUSH 0.9% 10 ML SYRINGE IVP SCH ×3 (06:46→21:07)
[2020-11-03] MEDS ORDERED: DESMOPRESSIN 4 MCG/ML AMP IVP STA (07:38)
--- NOTE | 2020-11-03 07:49 | PROVIDER PROGRESS NOTE ---
Subjective - Prog Note Date Prog Note Date: 11/03/20 - Subjective Subjective: She tells me she is at the hospital because of low sodium. She denies ever being confused. She states she currently feels thirsty and is requesting either water, juice, milk or coffee. She denies any pain. Current Medications - Current Medications Current Medications: Active Medications Acetaminophen (Acetaminophen 325 Mg Tablet) 650 mg PO Q4HR PRN PRN Reason: Pain 1 to 4 Desmopressin Acetate (Desmopressin 4 Mcg/Ml Amp) 2 mcg IVP ONCE STA Stop: 11/03/20 07:39 Dextrose (D5w) 1,000 mls @ 150 mls/hr IV .Q6H40M [facility] Ondansetron HCl (Ondansetron Odt 4 Mg Tablet) 4 mg TL Q6HR PRN PRN Reason: Nausea / Vomiting Ondansetron HCl (Ondansetron 4 Mg/2 Ml Vial) 4 mg IVP Q6HR PRN PRN Reason: Nausea / Vomiting Sodium Chloride (Sodium Chloride Flush 0.9% 10 Ml Syringe) 10 ml IVP PRN PRN PRN Reason: NEEDED PER PROVIDER ORDERS Sodium Chloride (Sodium Chloride Flush 0.9% 10 Ml Syringe) 10 ml IVP 01 00,0900,1700 [facility] Last Admin: 11/03/20 06:46 Dose: Not Given Documented by: acetaZOLAMIDE [Acetazolamide] 125 mg PO 10/11/20 risperiDONE [Risperdal] 2 mg PO DAILY 10/11/20 Objective - Vital Signs/Intake & Output Reviewed Vital Signs: Yes Vital Signs: Vital Signs Temp Pulse Pulse Resp BP Pulse Ox 11/03/20 05:36 36.6 C 109 H 24 96 11/03/20 03:58 37.1 C 75 16 89/49 L 93 Intake & Output: Intake & Output 10/31/20 11/01/20 11/02/20 11/03/20 23:59 23:59 23:59 23:59 Intake Total 50 385.833 Output Total 900 4250 Balance - -0221.167 - Objective General Appearance: positive: No acute distress, Alert, Other (She appears unkept.) Eyes Bilateral: positive: Normal inspection, Conjunctivae nml ENT: positive: ENT inspection nml Neck: positive: Nml inspection Respiratory: positive: No respiratory distress. negative: Wheezes, Rales Cardiovascular: positive: Regular rate & rhythm, No murmur. negative: Tachy cardia Abdomen: positive: Other (She deferred an abdominal exam.) Skin: positive: Warm, Dry Extremities: positive: No pedal edema Neurologic/Psychiatric: positive: Other (No focal deficits. Her speech is pressured at times.). negative: Disoriented to person, Disoriented to place, Disoriented to time - Lab Results Fish Bones: 11/02/20 20:20 11/03/20 08:58 Other Labs: Lab Results x24hrs 11/03/20 11/03/20 11/02/20 Range/Units 06:12 01:54 21:40 WBC (4.8-10.8) x10^3/uL RBC (4.20-5.40) 10^6/uL Hgb (12.0-16.0) g/dL Hct (37.0-47.0) % MCV (81.0-99.0) fL MCH (27.0-31.0) pg MCHC (32.0-36.0) g/dL RDW (12.0-15.0) % Plt Count (130-450) 10^3/uL MPV (7.9-10.8) fL Neut # (Auto) (1.5-6.6) 10^3/uL Lymph # (Auto) (1.5-3.5) 10^3/uL Glascock # (Auto) (0.0-1.0) 10^3/uL Eos # (Auto) (0.0-0.7) 10^3/uL Baso # (Auto) (0.0-0.1) 10^3/uL Absolute Nucleated RBC x10^3/uL Nucleated RBC % /100WBC Sodium 137 133 L (135-145) mmol/L Potassium 4.6 4.1 (3.5-5.0) mmol/L Chloride 105 99 L (101-111) mmol/L Carbon Dioxide 25 27 (21-32) mmol/L Anion Gap 7.0 7.0 (6-13) BUN 6 6 (6-20) mg/dL Creatinine 0.5 0.5 (0.4-1.0) mg/dL Estimated GFR (MDRD) 132 132 (>89) Glucose 106 H 112 H (70-100) mg/dL Calcium 9.1 9.3 (8.5-10.3) mg/dL Phosphorus (2.5-4.6) mg/dL Magnesium (1.7-2.8) mg/dL Total Bilirubin (0.2-1.0) mg/dL AST (10-42) IU/L ALT (10-60) IU/L Alkaline Phosphatase (42-121) IU/L Total Protein (6.7-8.2) g/dL Albumin (3.2-5.5) g/dL Globulin (2.1-4.2) g/dL Albumin/Globulin Ratio (1.0-2.2) TSH (0.34-5.60) uIU/mL Urine Color Urine Clarity (CLEAR) Urine pH (5.0-7.5) PH Ur Specific Marshall (1.002-1.030) Urine Protein (NEGATIVE) mg/dL Urine Glucose (UA) (NEGATIVE) mg/dL Urine Ketones (NEGATIVE) mg/dL Urine Occult Blood (NEGATIVE) Urine Nitrite (NEGATIVE) Urine Bilirubin (NEGATIVE) Urine Urobilinogen (NORMAL) E.U./dL Ur Leukocyte Esterase (NEGATIVE) Ur Microscopic Review Urine Culture Comments Urine HCG, Qual Nasal Adenovirus (PCR) Nasal B. parapertussis DNA (PCR) Nasal Coronavir 229E PCR Nasal Coronavir HKU1 PCR Nasal Coronavir NL63 PCR Nasal Coronavir OC43 PCR Nasal Enterovir/Rhinovir PCR Nasal Influenza B PCR Nasal Influenza A PCR Nasal Parainfluen 1 PCR Nasal Parainfluen 2 PCR Nasal Parainfluen 3 PCR Nasal Parainfluen 4 PCR Nasal RSV (PCR) Nasal Screen MRSA (PCR) NEGATIVE (NEGATIVE) Nasal B.pertussis DNA PCR Nasal C.pneumoniae (PCR) Shoaib Human Metapneumo PCR Nasal M.pneumoniae (PCR) Nasal SARS-CoV-2 (PCR) Salicylates mg/dL Urine Opiates Screen (NEGATIVE) Ur Oxycodone Screen (NEGATIVE) Urine Methadone Screen (NEGATIVE) Ur Propoxyphene Screen (NEGATIVE) Acetaminophen (10-30) ug/mL Ur Barbiturates Screen (NEGATIVE) Ur Tricyclics Screen (NEGATIVE) Ur Phencyclidine Scrn (NEGATIVE) Ur Amphetamine Screen (NEGATIVE) U Methamphetamines Scrn (NEGATIVE) U Benzodiazepines Scrn (NEGATIVE) Urine Cocaine Screen (NEGATIVE) U Cannabinoids Screen (NEGATIVE) Ethyl Alcohol mg/dL 11/02/20 11/02/20 11/02/20 Range/Units 20:32 20:20 20:20 WBC (4.8-10.8) x10^3/uL RBC (4.20-5.40) 10^6/uL Hgb (12.0-16.0) g/dL Hct (37.0-47.0) % MCV (81.0-99.0) fL MCH (27.0-31.0) pg MCHC (32.0-36.0) g/dL RDW (12.0-15.0) % Plt Count (130-450) 10^3/uL MPV (7.9-10.8) fL Neut # (Auto) (1.5-6.6) 10^3/uL Lymph # (Auto) (1.5-3.5) 10^3/uL Glascock # (Auto) (0.0-1.0) 10^3/uL Eos # (Auto) (0.0-0.7) 10^3/uL Baso # (Auto) (0.0-0.1) 10^3/uL Absolute Nucleated RBC x10^3/uL Nucleated RBC % /100WBC Sodium 114 L* (135-145) mmol/L Potassium 3.9 (3.5-5.0) mmol/L Chloride 82 L (101-111) mmol/L Carbon Dioxide 23 (21-32) mmol/L Anion Gap 9.0 (6-13) BUN 8 (6-20) mg/dL Creatinine 0.4 (0.4-1.0) mg/dL Estimated GFR (MDRD) 171 (>89) Glucose 138 H (70-100) mg/dL Calcium 8.7 (8.5-10.3) mg/dL Phosphorus 2.5 (2.5-4.6) mg/dL Magnesium 1.4 L (1.7-2.8) mg/dL Total Bilirubin 0.8 (0.2-1.0) mg/dL AST 23 (10-42) IU/L ALT 19 (10-60) IU/L Alkaline Phosphatase 48 (42-121) IU/L Total Protein 6.4 L (6.7-8.2) g/dL Albumin 3.9 (3.2-5.5) g/dL Globulin 2.5 (2.1-4.2) g/dL Albumin/Globulin Ratio 1.6 (1.0-2.2) TSH 1.40 (0.34-5.60) uIU/mL Urine Color Urine Clarity (CLEAR) Urine pH (5.0-7.5) PH Ur Specific Marshall (1.002-1.030) Urine Protein (NEGATIVE) mg/dL Urine Glucose (UA) (NEGATIVE) mg/dL Urine Ketones (NEGATIVE) mg/dL Urine Occult Blood (NEGATIVE) Urine Nitrite (NEGATIVE) Urine Bilirubin (NEGATIVE) Urine Urobilinogen (NORMAL) E.U./dL Ur Leukocyte Esterase (NEGATIVE) Ur Microscopic Review Urine Culture Comments Urine HCG, Qual Nasal Adenovirus (PCR) NOT DETECTED Nasal B. parapertussis DNA (PCR) NOT DETECTED Nasal Coronavir 229E PCR NOT DETECTED Nasal Coronavir HKU1 PCR NOT DETECTED Nasal Coronavir NL63 PCR NOT DETECTED Nasal Coronavir OC43 PCR NOT DETECTED Nasal Enterovir/Rhinovir PCR NOT DETECTED Nasal Influenza B PCR NOT DETECTED Nasal Influenza A PCR NOT DETECTED Nasal Parainfluen 1 PCR NOT DETECTED Nasal Parainfluen 2 PCR NOT DETECTED Nasal Parainfluen 3 PCR NOT DETECTED Nasal Parainfluen 4 PCR NOT DETECTED Nasal RSV (PCR) NOT DETECTED Nasal Screen MRSA (PCR) (NEGATIVE) Nasal B.pertussis DNA PCR NOT DETECTED Nasal C.pneumoniae (PCR) NOT DETECTED Shoaib Human Metapneumo PCR NOT DETECTED Nasal M.pneumoniae (PCR) NOT DETECTED Nasal SARS-CoV-2 (PCR) NOT DETECTED Salicylates < 6.0 mg/dL Urine Opiates Screen (NEGATIVE) Ur Oxycodone Screen (NEGATIVE) Urine Methadone Screen (NEGATIVE) Ur Propoxyphene Screen (NEGATIVE) Acetaminophen < 10 L (10-30) ug/mL Ur Barbiturates Screen (NEGATIVE) Ur Tricyclics Screen (NEGATIVE) Ur Phencyclidine Scrn (NEGATIVE) Ur Amphetamine Screen (NEGATIVE) U Methamphetamines Scrn (NEGATIVE) U Benzodiazepines Scrn (NEGATIVE) Urine Cocaine Screen (NEGATIVE) U Cannabinoids Screen (NEGATIVE) Ethyl Alcohol < 5.0 mg/dL 11/02/20 11/02/20 11/02/20 Range/Units 20:20 20:05 20:05 WBC 11.6 H (4.8-10.8) x10^3/uL RBC 3.72 L (4.20-5.40) 10^6/uL Hgb 11.9 L (12.0-16.0) g/dL Hct 34.3 L (37.0-47.0) % MCV 92.2 (81.0-99.0) fL MCH 32.0 H (27.0-31.0) pg MCHC 34.7 (32.0-36.0) g/dL RDW 11.6 L (12.0-15.0) % Plt Count 270 (130-450) 10^3/uL MPV 8.2 (7.9-10.8) fL Neut # (Auto) 8.7 H (1.5-6.6) 10^3/uL Lymph # (Auto) 1.5 (1.5-3.5) 10^3/uL Glascock # (Auto) 1.2 H (0.0-1.0) 10^3/uL Eos # (Auto) 0.1 (0.0-0.7) 10^3/uL Baso # (Auto) 0.0 (0.0-0.1) 10^3/uL Absolute Nucleated RBC 0.00 x10^3/uL Nucleated RBC % 0.0 /100WBC Sodium (135-145) mmol/L Potassium (3.5-5.0) mmol/L Chloride (101-111) mmol/L Carbon Dioxide (21-32) mmol/L Anion Gap (6-13) BUN (6-20) mg/dL Creatinine (0.4-1.0) mg/dL Estimated GFR (MDRD) (>89) Glucose (70-100) mg/dL Calcium (8.5-10.3) mg/dL Phosphorus (2.5-4.6) mg/dL Magnesium (1.7-2.8) mg/dL Total Bilirubin (0.2-1.0) mg/dL AST (10-42) IU/L ALT (10-60) IU/L Alkaline Phosphatase (42-121) IU/L Total Protein (6.7-8.2) g/dL Albumin (3.2-5.5) g/dL Globulin (2.1-4.2) g/dL Albumin/Globulin Ratio (1.0-2.2) TSH (0.34-5.60) uIU/mL Urine Color YELLOW Urine Clarity CLEAR (CLEAR) Urine pH 6.0 (5.0-7.5) PH Ur Specific Marshall <=1.005 (1.002-1.030) Urine Protein NEGATIVE (NEGATIVE) mg/dL Urine Glucose (UA) NEGATIVE (NEGATIVE) mg/dL Urine Ketones NEGATIVE (NEGATIVE) mg/dL Urine Occult Blood NEGATIVE (NEGATIVE) Urine Nitrite NEGATIVE (NEGATIVE) Urine Bilirubin NEGATIVE (NEGATIVE) Urine Urobilinogen 0.2 (NORMAL) (NORMAL) E.U./dL Ur Leukocyte Esterase NEGATIVE (NEGATIVE) Ur Microscopic Review NOT INDICATED Urine Culture Comments NOT INDICATED Urine HCG, Qual NEGATIVE Nasal Adenovirus (PCR) Nasal B. parapertussis DNA (PCR) Nasal Coronavir 229E PCR Nasal Coronavir HKU1 PCR Nasal Coronavir NL63 PCR Nasal Coronavir OC43 PCR Nasal Enterovir/Rhinovir PCR Nasal Influenza B PCR Nasal Influenza A PCR Nasal Parainfluen 1 PCR Nasal Parainfluen 2 PCR Nasal Parainfluen 3 PCR Nasal Parainfluen 4 PCR Nasal RSV (PCR) Nasal Screen MRSA (PCR) (NEGATIVE) Nasal B.pertussis DNA PCR Nasal C.pneumoniae (PCR) Shoaib Human Metapneumo PCR Nasal M.pneumoniae (PCR) Nasal SARS-CoV-2 (PCR) Salicylates mg/dL Urine Opiates Screen NEGATIVE (NEGATIVE) Ur Oxycodone Screen NEGATIVE (NEGATIVE) Urine Methadone Screen NEGATIVE (NEGATIVE) Ur Propoxyphene Screen NEGATIVE (NEGATIVE) Acetaminophen (10-30) ug/mL Ur Barbiturates Screen NEGATIVE (NEGATIVE) Ur Tricyclics Screen NEGATIVE (NEGATIVE) Ur Phencyclidine Scrn NEGATIVE (NEGATIVE) Ur Amphetamine Screen NEGATIVE (NEGATIVE) U Methamphetamines Scrn NEGATIVE (NEGATIVE) U Benzodiazepines Scrn NEGATIVE (NEGATIVE) Urine Cocaine Screen NEGATIVE (NEGATIVE) U Cannabinoids Screen NEGATIVE (NEGATIVE) Ethyl Alcohol mg/dL Assessment/Plan - Problem List (1) Acute hyponatremia Impression: This 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 She was given hypertonic saline overnight and her oral intake was limited intentionally as we limited her access to free water. Unfortunately, her sodium has overcorrected this morning. Overnight it was 133 and this morning it is 137. Labs from 3 days ago revealed her sodium was within normal limits at that time. Although her initial hypokalemia was likely acute in nature and she is likely low risk for osmotic demyelination syndrome, we will start her on D5 water and give her a dose of desmopressin. We will recheck labs in 2 to 3 hours. We will continue to zeenat tor her BMP otherwise every 4 hours. Will consider another dose of desmopressin if necessary. Ideally she would correct to around 122 to 124 by this evening. (2) Metabolic encephalopathy Impression: Her encephalopathy is secondary to the hyponatremia. Fortunately at this time, there is been no evidence of seizures which she had last month when presenting also with hyponatremia. We will continue to treat the underlying hyponatremia as mentioned above. (3) Affective psychosis Impression: She has had multiple psychiatric diagnoses from anxiety to observe obsessive- compulsive disorder to schizoaffective and bipolar. We do suspect that this is contributing to her primary polydipsia and she will ultimately need further evaluation to prevent readmission again for encephalopathy and acute hyponatremia for which she has now had 2 admissions over the past month. She did have a work-up at [facility] which included anti-NMDA antibody which was negative. She may need a telepsych consult before discharge. (4) Controlled type 2 diabetes mellitus without complication, without long-term current use of insulin Impression: Her last A1c was 5.5%. We will hold off on sliding scale at this time. Carb controlled diet as tolerated once taking p.o.
[2020-11-03] MEDS: DEXTROSE 5% 1,000 ML IV SCH ×3 (08:23→21:06)
[2020-11-03 09:13] LABS: CALCIUM 9.2 mg/dL (8.5-10.3); CREATININE 0.6 mg/dL (0.4-1.0); POTASSIUM 4.6 mmol/L (3.5-5.0)
[2020-11-03 13:27] LABS: CALCIUM 9.2 mg/dL (8.5-10.3); CREATININE 0.6 mg/dL (0.4-1.0); POTASSIUM 4.5 mmol/L (3.5-5.0)
[2020-11-03] MEDS ORDERED: DESMOPRESSIN 4 MCG/ML AMP IVP ONE (14:30)
[2020-11-03] MEDS ORDERED: DESMOPRESSIN 4 MCG/ML AMP IVP SCH (14:30)
[2020-11-03 18:24] LABS: CALCIUM 8.9 mg/dL (8.5-10.3); CREATININE 0.5 mg/dL (0.4-1.0); POTASSIUM 4.3 mmol/L (3.5-5.0)
[2020-11-03] MEDS: SODIUM CHLORIDE 3% HYPERTONIC 500 ML IV SCH (20:51)
[2020-11-03 21:08] LABS: CALCIUM 8.9 mg/dL (8.5-10.3); CREATININE 0.5 mg/dL (0.4-1.0); POTASSIUM 4.1 mmol/L (3.5-5.0)
[2020-11-04] MEDS: SODIUM CHLORIDE FLUSH 0.9% 10 ML SYRINGE IVP SCH ×3 (00:39→17:43)
[2020-11-04] MEDS: DEXTROSE 5% 1,000 ML IV SCH (05:51)
[2020-11-04 05:53] LABS: BASOPHILS % (AUTO) 0.4 %; EOSINOPHILS # (AUTO) 0.1 10^3/uL (0.0-0.7); EOSINOPHILS % (AUTO) 1.3 %; HCT - HEMATOCRIT 35.7 % (37.0-47.0); HGB - HEMOGLOBIN 12.5 g/dL (12.0-16.0); LYMPHOCYTES # (AUTO) 1.6 10^3/uL (1.5-3.5); LYMPHOCYTES % (AUTO) 18.9 %; MEAN CORPUSCULAR HEMOGLOBIN 32.5 pg (27.0-31.0); MEAN CORPUSCULAR VOLUME 92.7 fL (81.0-99.0); MEAN PLATELET VOLUME 9.2 fL (7.9-10.8); MONOCYTES # (AUTO) 0.9 10^3/uL (0.0-1.0); MONOCYTES % (AUTO) 10.2 %; NEUTROPHILS # (AUTO) 5.9 10^3/uL (1.5-6.6); NEUTROPHILS % (AUTO) 68.7 %; PLT - PLATELET COUNT 295 10^3/uL (130-450); RED BLOOD COUNT 3.85 10^6/uL (4.20-5.40); RED CELL DISTRIBUTION WIDTH 11.9 % (12.0-15.0); WHITE BLOOD COUNT 8.5 x10^3/uL (4.8-10.8)
[2020-11-04 06:07] LABS: CALCIUM 8.6 mg/dL (8.5-10.3); CREATININE 0.5 mg/dL (0.4-1.0); POTASSIUM 3.9 mmol/L (3.5-5.0)
--- NOTE | 2020-11-04 07:21 | PROVIDER PROGRESS NOTE ---
Subjective - Prog Note Date Prog Note Date: 11/04/20 - Subjective Subjective: She denies any pain or difficulty breathing. She continues to ask for water every 5 to 10 seconds. She knows she is at the hospital and that she is here because of low sodium. She tells me that she has been urinating a lot. Current Medications - Current Medications Current Medications: Active Medications Acetaminophen (Acetaminophen 325 Mg Tablet) 650 mg PO Q4HR PRN PRN Reason: Pain 1 to 4 Sodium Chloride (Sodium Chloride 3% Hypertonic) 500 mls @ 50 mls/hr IV .Q10H [facility] Stop: 11/04/20 08:59 Last Admin: 11/04/20 07:49 Dose: 50 mls/hr Documented by: Ondansetron HCl (Ondansetron Odt 4 Mg Tablet) 4 mg TL Q6HR PRN PRN Reason: Nausea / Vomiting Ondansetron HCl (Ondansetron 4 Mg/2 Ml Vial) 4 mg IVP Q6HR PRN PRN Reason: Nausea / Vomiting Sodium Chloride (Sodium Chloride Flush 0.9% 10 Ml Syringe) 10 ml IVP PRN PRN PRN Reason: NEEDED PER PROVIDER ORDERS Sodium Chloride (Sodium Chloride Flush 0.9% 10 Ml Syringe) 10 ml IVP 0100,0900,1700 [facility] Last Admin: 11/04/20 07:49 Dose: 10 ml Documented by: acetaZOLAMIDE [Acetazolamide] 125 mg PO 10/11/20 risperiDONE [Risperdal] 3 mg PO BID 11/03/20 Objective - Vital Signs/Intake & Output Reviewed Vital Signs: Yes Vital Signs: Vital Signs Pulse Pulse Resp BP BP 11/04/20 05:35 90 24 11/04/20 05:30 90 26 H 11/04/20 05:25 99 18 11/04/20 05:20 86 22 11/04/20 05:15 88 17 11/04/20 05:10 80 23 11/04/20 05:05 76 17 11/04/20 05:01 85 15 11/04/20 05:00 87 18 145/84 H 11/04/20 04:59 80 19 11/04/20 04:55 79 15 11/04/20 04:50 81 20 11/04/20 04:45 94 24 11/04/20 04:40 83 18 11/04/20 04:36 82 17 11/04/20 04:30 89 18 11/04/20 04:25 92 35 H 11/04/20 04:20 89 16 11/04/20 04:15 82 18 11/04/20 04:10 85 22 11/04/20 04:05 84 16 11/04/20 04:01 102 H 25 H 146/86 H 11/04/20 04:00 92 101 H 27 H 146/86 H 11/04/20 03:55 89 23 11/04/20 03:50 78 15 11/04/20 03:45 63 15 11/04/20 03:40 75 20 11/04/20 03:35 85 19 11/04/20 03:30 90 19 11/04/20 03:25 79 17 Intake & Output: Intake & Output 11/01/20 11/02/20 11/03/20 11/04/20 23:59 23:59 23:59 23:59 Intake Total 50 4533.333 1210 Output Total 900 5650 50 Balance 850 6798.511 5151 - Objective General Appearance: positive: No acute distress, Alert Eyes Bilateral: positive: Normal inspection, Conjunctivae nml ENT: positive: ENT inspection nml Neck: positive: Nml inspection Respiratory: positive: No respiratory distress. negative: Wheezes, Rales Cardiovascular: positive: Regular rate & rhythm. negative: Tachycardia, Systolic murmur Skin: positive: Warm, Dry Extremities: positive: No pedal edema Neurologic/Psychiatric: positive: Motor nml. negative: Disoriented to person, Disoriented to place - Lab Results Fish Bones: 11/04/20 05:00 11/04/20 05:00 Other Labs: Lab Results x24hrs 11/04/20 11/04/20 11/03/20 Range/Units 05:00 05:00 20:52 WBC 8.5 (4.8-10.8) x10^3/uL RBC 3.85 L (4.20-5.40) 10^6/uL Hgb 12.5 (12.0-16.0) g/dL Hct 35.7 L (37.0-47.0) % MCV 92.7 (81.0-99.0) fL MCH 32.5 H (27.0-31.0) pg MCHC 35.0 (32.0-36.0) g/dL RDW 11.9 L (12.0-15.0) % Plt Count 295 (130-450) 10^3/uL MPV 9.2 (7.9-10.8) fL Neut # (Auto) 5.9 (1.5-6.6) 10^3/uL Lymph # (Auto) 1.6 (1.5-3.5) 10^3/uL [place] # (Auto) 0.9 (0.0-1.0) 10^3/uL Eos # (Auto) 0.1 (0.0-0.7) 10^3/uL Baso # (Auto) 0.0 (0.0-0.1) 10^3/uL Absolute Nucleated RBC 0.00 x10^3/uL Nucleated RBC % 0.0 /100WBC Sodium 116 L* 124 L (135-145) mmol/L Potassium 3.9 4.1 (3.5-5.0) mmol/L Chloride 84 L 91 L (101-111) mmol/L Carbon Dioxide 24 25 (21-32) mmol/L Anion Gap 8.0 8.0 (6-13) BUN 7 12 (6-20) mg/dL Creatinine 0.5 0.5 (0.4-1.0) mg/dL Estimated GFR (MDRD) 132 132 (>89) Glucose 136 H 116 H (70-100) mg/dL Calcium 8.6 8.9 (8.5-10.3) mg/dL 11/03/20 11/03/20 11/03/20 Range/Units 17:57 13:10 08:58 WBC (4.8-10.8) x10^3/uL RBC (4.20-5.40) 10^6/uL Hgb (12.0-16.0) g/dL Hct (37.0-47.0) % MCV (81.0-99.0) fL MCH (27.0-31.0) pg MCHC (32.0-36.0) g/dL RDW (12.0-15.0) % Plt Count (130-450) 10^3/uL MPV (7.9-10.8) fL Neut # (Auto) (1.5-6.6) 10^3/uL Lymph # (Auto) (1.5-3.5) 10^3/uL [place] # (Auto) (0.0-1.0) 10^3/uL Eos # (Auto) (0.0-0.7) 10^3/uL Baso # (Auto) (0.0-0.1) 10^3/uL Absolute Nucleated RBC x10^3/uL Nucleated RBC % /100WBC Sodium 127 L 133 L 136 (135-145) mmol/L Potassium 4.3 4.5 4.6 (3.5-5.0) mmol/L Chloride 95 L 98 L 103 (101-111) mmol/L Carbon Dioxide 26 27 25 (21-32) mmol/L Anion Gap 6.0 8.0 8.0 (6-13) BUN 12 10 7 (6-20) mg/dL Creatinine 0.5 0.6 0.6 (0.4-1.0) mg/dL Estimated GFR (MDRD) 132 107 107 (>89) Glucose 131 H 107 H 164 H (70-100) mg/dL Calcium 8.9 9.2 9.2 (8.5-10.3) mg/dL Assessment/Plan - Problem List (1) Acute hyponatremia Impression: Her sodium had overcorrected yesterday and so we gave her desmopressin twice and start her on D5 water. She had a slowly decreasing sodium and yesterday evening it was 124 and so her D5 water was discontinued. At that time, she would have corrected by 10 mmol over 24 hours. Unfortunately, this morning her sodium is decreased to 116. Although she does not appear to have symptoms from this, given the rapid decline, we will administer 50 mL of 3% hypertonic saline. We will continue to monitor her labs every 4 hours. We are closely watching her free water intake and we are limiting this. She has had high urine output as yesterday she put out nearly 5.7 L. It appears her kidneys are handling the free water excess. 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 We unfortunately cannot obtain a urine osmolality as it is a send out lab and by the time the results are back, it would be of little use. (2) Affective psychosis Impression: She has had multiple psychiatric diagnoses in the past include anxiety, obsessive-compulsive disorder, schizoaffective, and bipolar. As mentioned above, she has been worked up for possible autoimmune encephalitis although I am not sure if she has ever had a lumbar puncture. Once she is medically stable, I believe she will need a telepsych consult to help assist with management of her psychosis which has now led to 2 admissions over a 3-week period due to severe hyponatremia. (3) Controlled type 2 diabetes mellitus without complication, without long-term current use of insulin Impression: Her last A1c was 5.5%. We will continue a carb controlled diet. (4) Metabolic encephalopathy Impression: This has resolved. She appears to be back to her baseline neurologic status. She has had work-up at [facility] given she had seizures which included anti-NMDA receptor antibody which was negative.
[2020-11-04] MEDS ORDERED: SODIUM CHLORIDE 3% HYPERTONIC 500 ML IV SCH (08:00)
[2020-11-04 09:28] LABS: CALCIUM 9.2 mg/dL (8.5-10.3); CREATININE 0.5 mg/dL (0.4-1.0); POTASSIUM 4.5 mmol/L (3.5-5.0)
--- NOTE | 2020-11-04 11:18 | PHARMACY PROGRESS NOTE ---
- Best Possible Medication History Admit Date and Time: 11/02/202055 Processed by: Pharmacy Medication History completed: Yes Patient Interview: Pt unable to participate Secondary Source(s): Physician records, Insurance records As the person ultimately responsible for medication therapy, providers are able to order a medication from an existing home medication list in [facility] via the "Reconcile Routine" prior to Confirmation of that medication by technical support engineer. Such practice is discouraged except when the physician, in their clinical judgment, deems that a medical need exists for a medication without regard to previous use.
[2020-11-04 13:35] LABS: CALCIUM 9.3 mg/dL (8.5-10.3); CREATININE 0.6 mg/dL (0.4-1.0); POTASSIUM 4.5 mmol/L (3.5-5.0)
[2020-11-04 17:12] LABS: CALCIUM 9.3 mg/dL (8.5-10.3); CREATININE 0.6 mg/dL (0.4-1.0); POTASSIUM 4.4 mmol/L (3.5-5.0)
[2020-11-04 21:11] LABS: CALCIUM 9.7 mg/dL (8.5-10.3); CREATININE 0.5 mg/dL (0.4-1.0); POTASSIUM 4.5 mmol/L (3.5-5.0)
[2020-11-05] MEDS: SODIUM CHLORIDE FLUSH 0.9% 10 ML SYRINGE IVP SCH ×3 (03:09→17:47)
[2020-11-05 05:42] LABS: CALCIUM 9.7 mg/dL (8.5-10.3); CREATININE 0.7 mg/dL (0.4-1.0); POTASSIUM 4.5 mmol/L (3.5-5.0)
--- NOTE | 2020-11-05 08:02 | PROVIDER PROGRESS NOTE ---
Subjective - Prog Note Date Prog Note Date: 11/05/20 - Subjective Pt reports feeling: No change Subjective: She answers one word answer "OK" Objective - Vital Signs/Intake & Output Vital Signs: Vital Signs Pulse Resp 11/05/20 05:15 77 23 11/05/20 05:10 72 19 11/05/20 05:05 83 11 L 11/05/20 05:00 86 18 11/05/20 04:55 73 12 11/05/20 04:50 76 10 L 11/05/20 04:45 70 13 11/05/20 04:40 85 19 11/05/20 04:35 73 10 L 11/05/20 04:30 71 11 L 11/05/20 04:25 76 6 L 11/05/20 04:20 80 11/05/20 04:15 74 11 L 11/05/20 04:10 84 3 L 11/05/20 04:05 75 8 L Intake & Output: Intake & Output 11/02/20 11/03/20 11/04/20 11/05/20 23:59 23:59 23:59 23:59 Intake Total 50 4533.333 2753.333 250 Output Total 900 5650 6200 300 Balance -850 -1116.667 -3446.667 -50 - Objective General Appearance: positive: No acute distress, Alert Eyes Bilateral: positive: Other (Intense gaze) ENT: positive: No signs of dehydration Neck: positive: Nml inspection Respiratory: positive: No respiratory distress Cardiovascular: positive: Regular rate & rhythm Abdomen: positive: No distention Skin: positive: Warm, Dry Extremities: positive: No pedal edema Neurologic/Psychiatric: positive: Other (Flat affect, [id number] gaze, answers with just one-word answers of Yes and No) - Lab Results Fish Bones: 11/04/20 05:00 11/06/20 07:20 Other Labs: Lab Results x24hrs 11/05/20 11/04/20 11/04/20 Range/Units 05:02 20:56 16:58 Sodium 136 131 L 129 L (135-145) mmol/L Potassium 4.5 4.5 4.4 (3.5-5.0) mmol/L Chloride 102 96 L 93 L (101-111) mmol/L Carbon Dioxide 27 26 27 (21-32) mmol/L Anion Gap 7.0 9.0 9.0 (6-13) BUN 9 8 8 (6-20) mg/dL Creatinine 0.7 0.5 0.6 (0.4-1.0) mg/dL Estimated GFR (MDRD) 90 132 107 (>89) Glucose 110 H 111 H 112 H (70-100) mg/dL Calcium 9.7 9.7 9.3 (8.5-10.3) mg/dL 11/04/20 11/04/20 Range/Units 13:13 09:12 Sodium 124 L 121 L (135-145) mmol/L Potassium 4.5 4.5 (3.5-5.0) mmol/L Chloride 90 L 87 L (101-111) mmol/L Carbon Dioxide 28 25 (21-32) mmol/L Anion Gap 6.0 9.0 (6-13) BUN 8 8 (6-20) mg/dL Creatinine 0.6 0.5 (0.4-1.0) mg/dL Estimated GFR (MDRD) 107 132 (>89) Glucose 153 H 130 H (70-100) mg/dL Calcium 9.3 9.2 (8.5-10.3) mg/dL Assessment/Plan - Problem List (1) Acute hyponatremia Impression: Today the sodium is in a normal range at 136. She has wide fluctuations of serum sodium that can happen in 1 day from 116 to 131, per history, Na was being monitoored every 4 hours. We will continue with the total daily fluid restriction and currently there is no IV saline or 3% saline solution infusing. Follow BMP for the serum sodium every 6 hours today, every 12 hours tomorrow The plan is to assure the sodium is stable for 48 hours, and to address her psychiatric situation (see below). (2) Affective psychosis Impression: This patient was diagnosed as having bipolar disorder and schizophrenia when she was hospitalized 2 weeks ago at [place]. She also had a secondary diagnosis of obsessive-compulsive disorder (this is all from the admission H&P). She has been off her Risperdal for about 3 days. Because the serum sodium is stable, a telepsych evaluation is ordered to be done today>> The patient was seen by the telepsych provider and Dr. Yadav recommended resuming now the Rispiridol 3 mg bid, and that the pt needs InPt psych. The patient did not agree to Inpt psych and therefore Dr Yadav advised having the DCR called to retain the patient. This info was passed on to the SW, Jessica. The DCR did a computer consult and did not advise she be detained, because she reached out to the pt's psych provider who ,added the information taht the patient had "ideopathic intracranial HTN" and was not medically cleared therefore. I will try to see the [facility] summary from [facility], regarding the ksiro recommendations and possibly to get her transferred to [facility]. Of interest is that she speaks to me and her RN with just yes and no. She spoke to the Telepsych provider and DCR, Tessie, in complete sentences. (3) IIH (idiopathic intracranial hypertension) Impression: DCR knows this patient and did a consultation via computer tablet. I spoke the DCR regarding her impression after that. This patient has a diagnosis of idiopathic intracranial hypertension. The personal psychiatrist of this patient was contacted by the DCR and there was also input from the sister to the DCR. They thought that the underlying medical problem needs attention before she is medically cleared to be hospitalized as an inpatient for psych treatment. Will reach out to the Neurologist or Hospitalist service at [facility], regarding further recommendations and probable transfer to a higher level of care (back to [facility]). (4) Controlled type 2 diabetes mellitus without complication, without long-term current use of insulin Impression: Her A1c is 5.5 and her glucoses are in acceptable range on just a carb cont rolled diet. (5) Metabolic encephalopathy Impression: Her confusion has resolved. She is oriented.
[2020-11-05 11:14] LABS: CALCIUM 9.8 mg/dL (8.5-10.3); CREATININE 0.7 mg/dL (0.4-1.0); POTASSIUM 4.9 mmol/L (3.5-5.0)
[2020-11-05] MEDS ORDERED: risperiDONE 1 MG TABLET PO ONE (13:18)
--- NOTE | 2020-11-05 13:45 | TELEPSYCH PHYS NOTE ---
Telepsych Note - CHIEF COMPLAINT/HX OF PRESENT ILLNESS Chief Complaint and History of Present Illness: This evaluation was conducted via telepsychiatry with the assistance of onsite staff Reason for consult: psychiatric evaluation Requested by: Dr. Valdes History of Present Illness: 45 y.o F with psychiatric history of depression and anxiety currently admitted for management of hyponatremia. She is now medically clear. There is concern for psychiatric decompensation/maycol. Per provider, she had seizures 2 weeks ago and was found to be hyponatremic. They cause of this was thought to be psychogenic polydipsia. She was doing well for about a week then presented 3 days ago confused and was admitted to ICU for hyponatremia. She is now medically clear but is noted to be with flat affect and at times labile. She is noted to have a history of benzo abuse as well. Per admission H&P/chart review patient confused and speech not lucid. She had been hospitalized at [facility] for hyponatremia 2 weeks ago and during that hospitalization, there was concern for bipolar/schizophrenia and secondary diagnosis of OCD. Nurse states every conversation is brief and she asks to go to bathroom. She asks for items to drink repeatedly. She wont initiate other conversations. Monotone voice. lease out worker saw patient on 11/03 and concerned about grave disability due to her mental health symptoms. Patient is staring intensely at this provider and presents with flat affect. On interview, she reports she is in hospital because of low sodium. She states she feels fine and denies any symptoms of depression or maycol/hypomania when I screen for this. She also denies any current hallucinations or other symptoms of psychosis. She did mention being anxious because a lot is going on in her life but did not want to talk about it further. She states her parents are kicking her out of their home. She did note she has been on Risperdal for some time and states its because she needed it. She initially denies any past psychiatric hospitalizations but when I discussed her care teams concerned and offered psychiatric hospitalization, she stated I dont need to go to a psychiatric hospital and that she was last hospitalized a long time ago for hallucinations. She also asks when she will be discharged. Collateral [facility] and Dr. Valdes I spoke with mother, Pavithra (with patients permission #[phone]) who reports she believes patient has OCD. States that she was previously obsessively wiping her face with washcloths several times a day until her skin dried out. More recently, patient has been drinking water obsessively which has led to most recent hospitalizations for hyponatremia. Mother states she has a difficult time caring for patient. States patient puts her clothes on backwards and wears them inside out. She reports patient has outpatient psychiatrist Dr. Mcclellan at [facility]. She does not know last time patient saw him. She is on Risperdal 3mg BID and mother administers medications. She reports she was hospitalized at [place] 1.5 years ago and diagnosed with depression and anxiety and medications did not help. She was also seen by neurologist and MRI/spinal tap done which showed intracranial HTN. Mother feels patient is not all there and there is nothing she can do. She has not observed any recent sleep disruptions or hallucinations but does mention patient having intrusive thoughts Sleep issues: denies Psychiatric History/Treatment History: Past diagnoses: depression, alcohol use disorder, anxiety, benzo use disorder, r/o bipolar , schizophrenia, OCD Hospitalizations: denies initially then states she was hospitalized years ago for hallucinations Current Treatment: reports she has a psychiatrist but doesnt know name. Has not seen in months Suicide Assessment: PSS-3: 1) Over the past 2 weeks have you felt down, depressed or hopeless? No 2) Over the past 2 weeks have you had thoughts of killing yourself? No 3) Have you ever in your life attempted to kill yourself? No If yes, then when? - Within the past 24h? (Y/N), past month? (Y/N), between 1-6 months (Y/N), > 6 months (Y/N) PSS-3 Secondary Screen If #2 is yes or #3 is yes within the past 6 months, then complete secondary screen: 1) Positive on PSS-3 questions 2 & 3 active SI with a past attempt? 2) Have you been thinking about how you might kill yourself? 3) Have you had some intention of acting on your thoughts? 4) Lifetime psychiatric hospitalization? 5) Has drinking or substance abuse ever been a problem for you? 6) Current irritability, agitation, or aggression? PSS-3 Secondary Screen Scoring: (Mild/Moderate/Severe) Mild (0-2) No current attempt and no plan/intent Moderate (3-4) No current attempt, Plan OR intent but not both Severe (5-6) Current Attempt with Plan AND intent J[employer]-based Safety Assessment: Risk Factors: Stressors: being kicked out of parents Attempts/Self-injury: denies Impulsivity: denies Drug/Alcohol History: denies alcohol and substance use .Smokes 10 cigarettes daily. Report from provider- history of alcohol use disorder and benzo use disorder. 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 Education: college Responsibility to family/children/work: yes Future orientation: yes Mental Status Exam: Appearance and attire: disheveled, appears stated age Attitude and behavior: guarded but cooperative, staring intensely Speech: monotone Mood: Im fine Affect: flat Association and thought processes: linear Thought content: no SI, no HI Perception: no AVH, did not appear to be responding to internal stimuli no evidence of delusions Sensorium, memory, and orientation: A&Ox 4 Intellectual functioning: average Insight and judgment: limited - PSYCHIATRIC HX/TREATMENT HX Psychiatric: Depression, Anxiety (With benzodiazepine abuse. In spite of numerous warnings to not overuse her alprazolam, the patient was doubling or tripling her alprazolam and running out of prescriptions very quickly in 2018. Went into AA 2019 w a sponsor to help. ), Other (some of episodes w fixation that she was committing sins, and spent hours praying. was hearing voices.) - MEDICAL HX Does the pt have a hx of MRSA?: No Neurological History: None Eyes, Ears, Nose, Throat: None Cardiovascular: Atrial fibrillation Respiratory: None Skin: None Endocrine/Autoimmune: Type 2 diabetes Gastrointestinal: None Urinary: None Musculoskeletal: None, Chronic back pain Blood Disorders: None - SURGICAL HX General: Cholecystectomy - HOME MEDICATIONS Home Meds (as last confirmed): Patient History Medication Instructions Recorded Confirmed risperiDONE [Risperdal] 3 mg PO BID 11/03/20 11/03/20 acetaZOLAMIDE [Diamox] 250 mg PO BID 11/04/20 11/04/20 - ALLERGIES Allergies (as last confirmed): Allergies Allergy/AdvReac Type Severity Reaction Status Date / Time latex AdvReac Itching Verified 11/02/20 19:56 - TREATMENT/PHARMACOLOGICAL RECOMMENDATION Treatment - Pharmacological - Therapy Recommendations: Impression/Risk Assessment: Current Suicide Risk Elevated?: No Current Violence Risk Elevated? : No Ability to care for self: No,needs assistance Summary: 45 y.o F with psychiatric history of depression and anxiety currently admitted for management of hyponatremia. She is now medically clear. There is concern for psychiatric decompensation/maycol. Interview limited with patient as she answers no to majority of questions and at times appeared to be minimizing symptoms. She denies SI, HI and AVH. Collateral from EMR, providers and mother are suggestive of possible OCD and thought and/or mood disorder that is currently impairing her functioning. In the last few weeks patient has been hospitalized for hyponatremia secondary to polydipsia. It is unclear of polydipsia is in the context of psychosis or a compulsion. At this time, recommend inpatient psychiatric hospitalization for further management and assessment. Patient not agreeable to this so would need to call DCR to assess for detainment for grave disability. Diagnosis: h/o depression and anxiety r/o bipolar disorder, schizophrenia and OCD Treatment Plan: Level of Care: Inpatient Psychiatric Clearance: Medically admitted and now medically clear. Recommend inpatient psychiatric hospitalization for further management. Patient not agreeable to this so would need to call DCR to assess for detainment for grave disability. Observation level -continue current level of observation Pharmacological: Restart home Risperdal 3mg BID Patient psychotic? Difficult to assess Therapy: supportive Follow up needed while in hospital?: Re-consult psychiatry for follow up in [address]. Plan discussed with Dr. Lucio Yadav MD Psychiatrist - TIME SPENT & PROVIDER LOCATION Telepsych consultation conducted via videoconferencing: Yes List names and roles of persons who participated in consult: Dr. Yadav. Dr. Lorenzana Telepsych Provider Location: [place], [place] Time Telepsych consult began: 12:20 Time Telepsych consult completed: 13:35
[2020-11-05] MEDS: risperiDONE 1 MG TABLET PO SCH (21:17)
[2020-11-06] MEDS: SODIUM CHLORIDE FLUSH 0.9% 10 ML SYRINGE IVP SCH ×3 (05:51→19:09)
[2020-11-06 07:48] LABS: CALCIUM 9.5 mg/dL (8.5-10.3); CREATININE 0.7 mg/dL (0.4-1.0); POTASSIUM 4.4 mmol/L (3.5-5.0)
[2020-11-06] MEDS: risperiDONE 1 MG TABLET PO SCH ×2 (10:07→21:17)
[2020-11-06] MEDS: acetaZOLAMIDE 250 MG TABLET PO SCH ×2 (10:09→21:17)
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
[2020-11-06 18:25] LABS: CALCIUM 9.5 mg/dL (8.5-10.3); CREATININE 0.9 mg/dL (0.4-1.0); POTASSIUM 3.8 mmol/L (3.5-5.0)
[2020-11-07 05:36] LABS: CALCIUM 9.6 mg/dL (8.5-10.3); CREATININE 0.9 mg/dL (0.4-1.0)
[2020-11-07] MEDS: SODIUM CHLORIDE FLUSH 0.9% 10 ML SYRINGE IVP SCH ×3 (07:04→16:06)
[2020-11-07] MEDS: acetaZOLAMIDE 250 MG TABLET PO SCH (08:32)
[2020-11-07] MEDS: risperiDONE 1 MG TABLET PO SCH ×2 (08:33→19:58)
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
[2020-11-08 04:56] LABS: BASOPHILS % (AUTO) 0.6 %; EOSINOPHILS # (AUTO) 0.3 10^3/uL (0.0-0.7); EOSINOPHILS % (AUTO) 4.7 %; HCT - HEMATOCRIT 38.5 % (37.0-47.0); HGB - HEMOGLOBIN 12.6 g/dL (12.0-16.0); LYMPHOCYTES # (AUTO) 2.2 10^3/uL (1.5-3.5); LYMPHOCYTES % (AUTO) 33.8 %; MEAN CORPUSCULAR HEMOGLOBIN 32.1 pg (27.0-31.0); MEAN CORPUSCULAR HGB CONC 32.7 g/dL (32.0-36.0); MEAN CORPUSCULAR VOLUME 98.2 fL (81.0-99.0); MEAN PLATELET VOLUME 8.9 fL (7.9-10.8); MONOCYTES # (AUTO) 0.6 10^3/uL (0.0-1.0); MONOCYTES % (AUTO) 9.8 %; NEUTROPHILS # (AUTO) 3.3 10^3/uL (1.5-6.6); NEUTROPHILS % (AUTO) 50.9 %; PLT - PLATELET COUNT 263 10^3/uL (130-450); RED BLOOD COUNT 3.92 10^6/uL (4.20-5.40); RED CELL DISTRIBUTION WIDTH 12.8 % (12.0-15.0); WHITE BLOOD COUNT 6.6 x10^3/uL (4.8-10.8)
[2020-11-08 05:06] LABS: CALCIUM 9.4 mg/dL (8.5-10.3); CREATININE 0.9 mg/dL (0.4-1.0); POTASSIUM 4.1 mmol/L (3.5-5.0)
[2020-11-08] MEDS: SODIUM CHLORIDE FLUSH 0.9% 10 ML SYRINGE IVP SCH ×4 (09:05→21:01)
[2020-11-08] MEDS: risperiDONE 1 MG TABLET PO SCH ×2 (09:06→21:01)
[2020-11-09 00:29] VITALS: BP 109/64
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
--- NOTE | 2020-11-09 07:52 | Discharge Plan ---
Discharge Plan Problem Reviewed?: Yes Disposition: 02 Transfer Acute Care Hosp Condition: Critical No Smoking: If you smoke, Please STOP! Call for help.
--- NOTE | 2020-11-09 07:53 | DISCHARGE SUMMARY ---
Discharge Summary Admit Date: 11/02/20 Discharge Date: 11/09/20 Discharging Provider: Dr Palak Bonilla Code Status: Attempt Resuscitation Condition at Discharge: Poor Discharge Disposition: 02 Transfer Acute Care Hosp Discharge [facility] History of Present Illness: From the admission H&P of Dr Jessica Farrell: This is a 45-year-old white female who was just here in our ER last week with hyponatremia due to polydipsia. The hyponatremia was severe enough that she was having seizures/intubated and she was transferred to [facility]. Unclear what the discharge plan was and while there she was seen by neurology, nephrology, rhe umatology and neuro-ophthalmology. They felt that she was bipolar with schizophrenia, had secondary diagnosis of rhabdomyolysis, obsessive-compulsive disorder. The rhabdomyolysis was due to intractable seizures that required intubation. Keppra was used for a short time but discontinued. She was di scharged to home to be followed by her primary care provider. They recommended monthly labs and to try and identify the triggering event for her polydipsia resulting in hyponatremia. Nephrology emphasized the need for solute intake with fluids including juices and Gatorade as well as eating salt and protein regularly. Sshe returns now being brought in by ambulance with confusion. She is again drinking excessive amounts of water intentionally. She endorses that history. She is mumbling, keeps on insisting that she needs to drink more water. She was evaluated by the emergency room physician where temperature was 36.6. Heart rate 124. Blood pressure 160/90. Respirations 16 and 98% on room air. She is oriented to only to self. Eyes were opening, she was obeying commands, but her speech pattern was incomprehensible. Sodium was 114. Potassium 3.9. BUN 8, creatinine 0.4. TSH 1.4. She is now being placed in the ICU for hyponatremia. Dr. Mcgee has ordered hypertonic saline. In the ICU, the faucet to the sink has been turned off. They have put a sofa in front of the bathroom so she cannot have access to the bathroom. And when using a bedside commode she got up, and turned around to try and drink the urine out of the bedside commode. Her outpatient clinical record was reviewed. In the past she was taking tizanadine and alprazolam. She had depression, anxiety, and chronic low back pain. The depression started in 2004 and she has been tried on Zoloft, Celexa, and Effexor. The alprazolam started approximately 2015. Insomnia was a significant component to her anxiety. 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 But she was only able to work August through December 2018. Throughout this time she struggled with delusions, hearing voices. She felt that she was a "sinful person" and would pray for hours at a time. It was tied in with "the original sin". She was hospitalized at [facility] in May 2018. She was a constant daily alcohol drinker as well. She was discharged at that time to follow-up with [facility]. Discharge medications at that time included ealr pentin, hydroxyzine, Risperdal, venlafaxine, and trazodone. In the outpatient setting she was still having intrusive thoughts. She really felt that Ativan eliminated those thoughts. She entered into a controlled substance agreement June 2019 for the Ativan. In spite of numerous interventions with altering of medications, she continued to deteriorate with psychotic features, anxiety, and memory loss. By September 2019 (1 month ago), she was complaining of being thirsty all the time. She was drinking lots of water and it was not helping. MRI of the head has been negative. Neurology ordered an EEG October 2019. As well as neuropsych eval. They considered she might have idiopathic intracranial hypertension. She was started on treatment with acetazolamide. However the patient had problems with following through. The mother now does not want to be her caregiver any longer. - HOSPITAL COURSE Hospital Course: (1) Acute hyponatremia She was admitted to the ICU and started on NS after hypertonic saline. She initially had fluctuations of serum sodium in 1 day, going from 116 to 131. Her serum sodium was monitored every 4 hours. During her last 5 days of this hospitalization, her sodium was normal, by ordering a free water restriction. (2) Psychogenic polydypsia As per Hx, from the discharge summary from [facility]. (3) Affective psychosis This patient was diagnosed as having bipolar disorder and schizophrenia. She also has a secondary diagnosis of obsessive-compulsive disorder. She was off her Risperidone here initially, then a telepsych evaluation was done. The telepsych provider, Dr. Yadav recommended resuming the Rispiridol 3 mg bid, and felt that the pt needs InPt psych. The patient did not agree to Inpt psych and therefore the DCR was called to detain the patient. The DCR did a computer consult and did not advise she be detained, feeling the patient was not entirely medically cleared (from other H and speaking to the patient's psychotherapist). We therefore reached out to get her transferred to [facility]. There was a delay in transfer due to no beds open but she was eventually accepted and transferred to [facility]. (4) Neurodegenerative cognitive impairment The patient was asking her RN, GLASS INSPECTOR and Hospitalist for water incessantly, in fact she asked many questions repeatedly and it was noted she had poor short term memory. Her speech was flat with no affect. A cognitive eval was requested and done by OT and she scored as having severe cognitive impairment. A such, she could not be discharged safely to live independently, since her mother did not want to be her caregiver any longer. The patient's sister, Peter, an RN, started legal filing to become her DPOA. (5) Encephalopathy, chronic Her confusion had resolved and she became oriented. We obtained the [facility] summary, from 2 weeks prior, which stated that Ideopathic Intracranial HTN was ruled out by the MRI findings done 2 weeks ago, and the reports stated she has a "small area of encephalomalacia with gliosis and old hemorrhage in the posterior right temporal lobe, representing sequelae from prior vascular or traumatic injury. No obvious MRI findings to suggest intracranial hypertension." (6) Controlled type 2 diabetes mellitus without complication, without long-term current use of insulin Her A1c was 5.5 and her glucoses are in acceptable range on just a carb contr olled diet. - ALLERGIES Allergies/Adverse Reactions: Allergies Allergy/AdvReac Type Severity Reaction Status Date / Time latex AdvReac Itching Verified 11/02/20 19:56 - MEDICATIONS Home Medications: Ambulatory Orders Medication Instructions Recorded Confirmed risperiDONE [Risperdal] 3 mg PO BID 11/03/20 11/03/20 acetaZOLAMIDE [Diamox] 250 mg PO BID 11/04/20 11/04/20 - PHYSICAL EXAM AT DISCHARGE General Appearance: positive: No acute distress, Other (Disheveled) Eyes Bilateral: positive: Normal inspection, EOMI, Other (Intense starring) ENT: positive: No signs of dehydration Neck: positive: Nml inspection, No JVD Respiratory: positive: No respiratory distress, Breath sounds nml Cardiovascular: positive: Regular rate & rhythm, No murmur Abdomen: positive: Nml bowel sounds, No distention Skin: positive: Warm, Dry Extremities: positive: Non-tender Neurologic/Psychiatric: positive: Disoriented to time (Speech is forced, short, echoloquacious and flat with no affect) - LABS Result Diagrams: 11/08/20 04:15 11/08/20 04:15 - DIAGNOSTIC IMAGING Diagnostic Imaging Results: Final report reviewed - FOLLOW UP Follow Up: This will be determined after her stay at [facility]. - TIME SPENT Time Spent in Discharge (Minutes): 45
== END 2020-11-09 00:58 | disposition short-term general hospital (02) | DRG 640 ==
LOC: EDUNIT# → ED 19:50 → ICU 20:56
PROVIDERS: ADMIT Specialist; ATTEND Internal Medicine
DX: E87.1 Hypo-osmolality and hyponatremia (principal); G93.41 Metabolic encephalopathy; R63.1 Polydipsia; F39 Unspecified mood [affective] disorder; F31.9 Bipolar disorder, unspecified; F20.9 Schizophrenia, unspecified; F42.8 Other obsessive-compulsive disorder; F06.8 Other specified mental disorders due to known physiological condition; E11.9 Type 2 diabetes mellitus without complications; F29 Unspecified psychosis not due to a substance or known physiological condition; F41.9 Anxiety disorder, unspecified; G47.00 Insomnia, unspecified; Z20.822 Contact with and (suspected) exposure to COVID-19; G93.89 Other specified disorders of brain; F44.0 Dissociative amnesia; F17.210 Nicotine dependence, cigarettes, uncomplicated
CPT/HCPCS: 0202U; 36415; 80048; 80053; 80306; 80307; 80320; 80329; 81001; 81003; 81025; 83735; 84100; 84443; 85025; 87086; 87150; 93005; 99285; 99291

== ENCOUNTER 2021-02-20 14:33 | Outpatient (CLI) | payer MEDICAID ==
--- NOTE | 2021-02-20 17:03 | Ultrasound Report ---
PROCEDURE: Pelvic w/Transvaginal INDICATIONS: IUD CHECK TECHNIQUE: Real-time scanning was performed of the pelvic organs, with image documentation. Additional endovagi nal scanning was necessary due to incomplete visualization of the adnexal and endometrial structures by transabdominal scanning. COMPARISON: None. FINDINGS: No pathologic free abdominal or pelvic fluid. Uterus: Uterus is normal in size at 6.9 x 2 0.5-3.4 cm. The endometrium measures 2-3 mm in combined thickness. The uterus is anteverted Ovaries: Right ovary measures 2.2 x 1.3 x 1.2 cm. Left ovary measures 2.1 x 1.1 x 1.5 cm. The ovarie s are unremarkable bilaterally. Ovaries are only visualized transabdominally. IMPRESSION: No visualization of IUD. Please correlate clinically and with history. If needed further evaluation w ith dedicated abdominal radiographs could be performed. Reviewed by: Reg Millard MD on 02/20/2021 5:02 PM PDT Approved by: Reg Millard MD on 02/20/2021 5:02 PM PDT Station ID: [id number]
== END 2021-02-20 14:34 | disposition home or self-care (01) ==
LOC: DI 14:33
PROVIDERS: ATTEND Nurse Practitioner
DX: Z30.431 Encounter for routine checking of intrauterine contraceptive device (principal)

== ENCOUNTER 2021-02-24 08:00 | Outpatient (CLI) | payer MEDICAID, MEDICARE ==
[2021-02-24 07:45] LABS: BASOPHILS % (AUTO) 0.8 %; EOSINOPHILS # (AUTO) 0.2 10^3/uL (0.0-0.7); EOSINOPHILS % (AUTO) 3.6 %; HCT - HEMATOCRIT 47.4 % (37.0-47.0); HGB - HEMOGLOBIN 15.3 g/dL (12.0-16.0); LYMPHOCYTES # (AUTO) 1.6 10^3/uL (1.5-3.5); LYMPHOCYTES % (AUTO) 29.5 %; MEAN CORPUSCULAR HEMOGLOBIN 31.1 pg (27.0-31.0); MEAN CORPUSCULAR HGB CONC 32.3 g/dL (32.0-36.0); MEAN CORPUSCULAR VOLUME 96.3 fL (81.0-99.0); MEAN PLATELET VOLUME 9.4 fL (7.9-10.8); MONOCYTES # (AUTO) 0.5 10^3/uL (0.0-1.0); MONOCYTES % (AUTO) 9.6 %; NEUTROPHILS % (AUTO) 56.3 %; PLT - PLATELET COUNT 301 10^3/uL (130-450); RED BLOOD COUNT 4.92 10^6/uL (4.20-5.40); RED CELL DISTRIBUTION WIDTH 13.1 % (12.0-15.0); WHITE BLOOD COUNT 5.3 x10^3/uL (4.8-10.8)
[2021-02-24 07:48] LABS: BILIRUBIN,URINE NEGATIVE (NEGATIVE); GLUCOSE, URINE (UA) NEGATIVE (NEGATIVE); KETONES,URINE (UA) NEGATIVE (NEGATIVE); LEUKOCYTE ESTERASE, URINE NEGATIVE (NEGATIVE); NITRITE,URINE NEGATIVE (NEGATIVE); OCCULT BLOOD,URINE NEGATIVE (NEGATIVE); PH,URINE 6.5 PH (5.0-7.5); PROTEIN,URINE NEGATIVE (NEGATIVE); UROBILINOGEN,URINE 0.2 (NORMAL) E.U./dL (NORMAL)
[2021-02-24 07:58] LABS: CLARITY,URINE CLEAR (CLEAR)
[2021-02-24 08:00] LABS: BACTERIA,URINE Rare /HPF (None Seen); RBC,URINE None Seen /HPF (0-5); SQUAMOUS EPITHELIAL CELL,UR RARE Squamous (<= Few); WBC,URINE 0-3 /HPF (0-5)
[2021-02-24 08:06] LABS: ALBUMIN 4.4 g/dL (3.2-5.5); ALBUMIN/GLOBULIN RATIO 1.5 (1.0-2.2); ALKALINE PHOSPHATASE 48 IU/L (42-121); ALT ALANINE AMINOTRANSFERASE 15 IU/L (10-60); AST ASPARTATE AMINOTRANSFERASE 17 IU/L (10-42); BILIRUBIN,TOTAL 0.7 mg/dL (0.2-1.0); BUN - BLOOD UREA NITROGEN 9 mg/dL (6-20); CALCIUM 9.7 mg/dL (8.5-10.3); CARBON DIOXIDE - CO2 27 mmol/L (21-32); CHLORIDE 102 mmol/L (101-111); CHOL/HDL RATIO 3.1 (<4.4); CHOLESTEROL 212 mg/dL; CREATININE 0.7 mg/dL (0.4-1.0); GAMMA GLUTAMYL TRANSPEPTIDASE 20 IU/L (8-38); GFR - MDRD 89 (>89); GLUCOSE 114 mg/dL (70-100); HDL CHOLESTEROL 68 mg/dL; LDL CHOLESTEROL,CALCULATED 126 mg/dL; LDL/HDL RATIO 1.9 (<4.4); MAGNESIUM 2.1 mg/dL (1.7-2.8); POTASSIUM 4.6 mmol/L (3.5-5.0); SODIUM 137 mmol/L (135-145); TOTAL PROTEIN 7.4 g/dL (6.7-8.2); TRIGLYCERIDES 91 mg/dL; VLDL CHOLESTEROL 18 mg/dL
[2021-02-24 08:18] LABS: THYROID STIMULATING HORMONE 1.11 uIU/mL (0.34-5.60)
[2021-02-24 10:43] LABS: ESTIMATED AVERAGE GLUCOSE 120 mg/dL (70-100); HEMOGLOBIN A1c% 5.8 % (4.27-6.07)
== END 2021-02-24 23:59 | disposition home or self-care (01) ==
LOC: LAB.R 08:00
PROVIDERS: ATTEND Nurse Practitioner
DX: E87.6 Hypokalemia (principal); R41.89 Other symptoms and signs involving cognitive functions and awareness; Z86.39 Personal history of other endocrine, nutritional and metabolic disease; Z13.220 Encounter for screening for lipoid disorders; G93.2 Benign intracranial hypertension; T83.9XXA Unspecified complication of genitourinary prosthetic device, implant and graft, initial encounter; F10.20 Alcohol dependence, uncomplicated; R73.9 Hyperglycemia, unspecified; E83.42 Hypomagnesemia; R56.9 Unspecified convulsions; R41.3 Other amnesia; R32 Unspecified urinary incontinence; E66.9 Obesity, unspecified; F41.9 Anxiety disorder, unspecified; F32.A Depression, unspecified; J01.90 Acute sinusitis, unspecified
CPT/HCPCS: 80050; 80061; 81001; 82607; 82977; 83036; 83721; 83735; 87086

== ENCOUNTER 2021-04-03 11:58 | Outpatient (CLI) | payer MEDICAID ==
--- NOTE | 2021-04-03 12:43 | XRAY Report ---
PROCEDURE: Chest 2 View X-Ray INDICATIONS: COUGH TECHNIQUE: 2 view(s) of the chest. COMPARISON: 10/11/2020 FINDINGS: Surgical changes and devices: None. Lungs and pleura: No pleural effusions or pneumothorax. Lungs are clear. Mediastinum: Mediastinal contours are normal. Heart size is normal. Bones and chest wall: No suspicious bony abnormalities. Soft tissues appear unremarkable. IMPRESSION: No acute cardiopulmonary process demonstrated radiographically. Reviewed by: Gera Christensen MD on 04/03/2021 12:41 PM PST Approved by: Gera Christensen MD on 04/03/2021 12:41 PM PST Station ID: [id number]
== END 2021-04-03 11:59 | disposition home or self-care (01) ==
LOC: DI.N 11:58
PROVIDERS: ATTEND Nurse Practitioner
DX: R05.9 Cough, unspecified (principal)
CPT/HCPCS: 36415; 85025

== ENCOUNTER 2021-04-03 12:12 | Outpatient (CLI) | payer MEDICAID ==
[2021-04-03 17:56] LABS: BASOPHILS # (AUTO) 0.1 10^3/uL (0.0-0.1); BASOPHILS % (AUTO) 0.6 %; EOSINOPHILS # (AUTO) 0.2 10^3/uL (0.0-0.7); EOSINOPHILS % (AUTO) 2.8 %; HCT - HEMATOCRIT 47.2 % (37.0-47.0); HGB - HEMOGLOBIN 15.2 g/dL (12.0-16.0); LYMPHOCYTES % (AUTO) 25.2 %; MEAN CORPUSCULAR HEMOGLOBIN 31.1 pg (27.0-31.0); MEAN CORPUSCULAR HGB CONC 32.2 g/dL (32.0-36.0); MEAN CORPUSCULAR VOLUME 96.5 fL (81.0-99.0); MEAN PLATELET VOLUME 10.4 fL (7.9-10.8); MONOCYTES # (AUTO) 0.7 10^3/uL (0.0-1.0); MONOCYTES % (AUTO) 8.9 %; NEUTROPHILS % (AUTO) 62.4 %; PLT - PLATELET COUNT 221 10^3/uL (130-450); RED BLOOD COUNT 4.89 10^6/uL (4.20-5.40)
== END 2021-04-03 12:13 | disposition home or self-care (01) ==
LOC: LAB.N 12:12
PROVIDERS: ATTEND Nurse Practitioner
DX: R05.9 Cough, unspecified (principal)
CPT/HCPCS: 36415; 85025

== ENCOUNTER 2021-05-15 08:00 | Outpatient (CLI) | payer MEDICARE, MEDICAID ==
[2021-05-15 17:57] LABS: ALBUMIN 4.1 g/dL (3.2-5.5); ALBUMIN/GLOBULIN RATIO 1.4 (1.0-2.2); BILIRUBIN,TOTAL 0.5 mg/dL (0.2-1.0); CALCIUM 9.5 mg/dL (8.5-10.3); CREATININE 0.7 mg/dL (0.4-1.0); TOTAL PROTEIN 7.1 g/dL (6.7-8.2)
== END 2021-05-15 23:59 | disposition home or self-care (01) ==
LOC: LAB.WCP 08:00
PROVIDERS: ATTEND Nurse Practitioner
DX: E87.6 Hypokalemia (principal); R41.89 Other symptoms and signs involving cognitive functions and awareness; Z86.39 Personal history of other endocrine, nutritional and metabolic disease
CPT/HCPCS: 36415; 80053

== ENCOUNTER 2021-06-11 17:58 | Inpatient (IN) | payer MEDICARE, MEDICAID ==
[2021-06-11 18:15] LABS: BASOPHILS % (AUTO) 0.1 %; EOSINOPHILS % (AUTO) 0.2 %; HCT - HEMATOCRIT 39.7 % (37.0-47.0); HGB - HEMOGLOBIN 13.7 g/dL (12.0-16.0); LYMPHOCYTES # (AUTO) 1.1 10^3/uL (1.5-3.5); LYMPHOCYTES % (AUTO) 6.6 %; MEAN CORPUSCULAR HGB CONC 34.5 g/dL (32.0-36.0); MEAN CORPUSCULAR VOLUME 89.8 fL (81.0-99.0); MONOCYTES # (AUTO) 0.9 10^3/uL (0.0-1.0); MONOCYTES % (AUTO) 5.6 %; NEUTROPHILS # (AUTO) 14.4 10^3/uL (1.5-6.6); PLT - PLATELET COUNT 239 10^3/uL (130-450); RED BLOOD COUNT 4.42 10^6/uL (4.20-5.40); RED CELL DISTRIBUTION WIDTH 11.9 % (12.0-15.0); WHITE BLOOD COUNT 16.6 x10^3/uL (4.8-10.8)
[2021-06-11 18:35] LABS: ALBUMIN 4.2 g/dL (3.2-5.5); ALBUMIN/GLOBULIN RATIO 1.6 (1.0-2.2); BILIRUBIN,TOTAL 0.4 mg/dL (0.2-1.0); CALCIUM 8.6 mg/dL (8.5-10.3); CREATININE 0.7 mg/dL (0.4-1.0); POTASSIUM 3.6 mmol/L (3.5-5.0); TOTAL PROTEIN 6.9 g/dL (6.7-8.2)
[2021-06-11] MEDS ORDERED: LORazepam 2 MG/ML VIAL IVP STA (18:45)
--- NOTE | 2021-06-11 18:46 | ED Physician Documentation ---
History of Present Illness - Stated complaint Stated Complaint: POSSIBLE SEIZURE / LOW SODIUM - Chief complaint Chief Complaint: Neuro - History obtained from History obtained from: Patient, Family - History of Present Illness Timing: Today Pain level max: 0 Pain level now: 0 - Additonal information Additional information: 46-year-old female with a long psychiatric history, has been living at a intermediate. Her sister took her to the dentist today and noticed that she was drinking a large amount of water. Has a history of psychogenic polydipsia. Her sister is a nurse and states that the patient has developed progressive altered mental status. No seizures that were witnessed today. This is similar to her prior episodes of hyponatremia. No fevers. No chills. Nothing makes it better or worse Review of Systems Unable to obtain: [place] PD PAST MEDICAL HISTORY - Past Medical History Past Medical History: Yes Cardiovascular: Atrial fibrillation Respiratory: None Neuro: None Endocrine/Autoimmune: Type 2 diabetes GI: None LAST DIPPER: Other () : None HEENT: None Psych: Depression, Anxiety, Bipolar disorder, Schizophrenia, Obsessive compulsive disorder, Other Musculoskeletal: None, Chronic back pain Derm: None - Past Surgical History Past Surgical History: Yes General: Cholecystectomy HEENT: Tonsil/Adenoidectomy - Present Medications Home Medications: Ambulatory Orders Medication Instructions Recorded Confirmed risperiDONE [Risperdal] 3 mg PO BID 11/03/20 11/03/20 acetaZOLAMIDE [Diamox] 250 mg PO BID 11/04/20 11/04/20 - Allergies Allergies/Adverse Reactions: Allergies Allergy/AdvReac Type Severity Reaction Status Date / Time latex AdvReac Itching Verified 11/02/20 19:56 - Social History Does the pt smoke?: No Smoking Status: Never smoker Does the pt drink ETOH?: Yes Does the pt have substance abuse?: No - Immunizations Immunizations are current?: Yes - POLST Patient has POLST: No POLST Status: Full Code PD ED PE NORMAL - Vitals Vital signs reviewed: Yes - General General: No acute distress, Other (alert, disoriented, slurred speech) - HEENT HEENT: Moist mucous membranes - Neck Neck: Supple, no meningeal sign - Cardiac Cardiac: RRR - Respiratory Respiratory: No respiratory distress, Clear bilaterally - Abdomen Abdomen: Soft, Non tender, Non distended - Derm Derm: Warm and dry - Extremities Extremities: No edema, No calf tenderness / cord - Neuro Neuro: ballaster 2-12 intact, Other (alert, confused) Eye Opening: Spontaneous Motor: Obeys Commands Verbal: Confused GCS Score: 14 Results - Vitals Vitals: Vital Signs - 24 hr 06/11/21 06/11/21 06/11/21 18:17 19:14 20:00 Temperature 35.8 C L Heart Rate 124 H 115 H 106 H Respiratory 32 H 17 17 Rate Blood Pressure 159/97 H 164/92 H 145/70 H O2 Saturation 97 97 93 Oxygen O2 Source Room air - EKG (time done) 1831 Rate: Rate (enter#) (119) Rhythm: Sinus tachycardia [place]: Normal Intervals: Normal NE QRS: Normal Ischemia: Normal ST segments - Labs Labs: Laboratory Tests 06/11/21 06/11/21 06/11/21 18:10 18:10 18:10 WBC 16.6 H RBC 4.42 Hgb 13.7 Hct 39.7 MCV 89.8 MCH 31.0 MCHC 34.5 RDW 11.9 L Plt Count 239 MPV 9.0 Neut # (Auto) 14.4 H Lymph # (Auto) 1.1 L [place] # (Auto) 0.9 Eos # (Auto) 0.0 Baso # (Auto) 0.0 Absolute Nucleated RBC 0.00 Nucleated RBC % 0.0 Sodium 113 L* Potassium 3.6 Chloride 81 L Carbon Dioxide 22 Anion Gap 10.0 BUN 7 Creatinine 0.7 Estimated GFR (MDRD) 89 Glucose 247 H Calcium 8.6 Total Bilirubin 0.4 AST 33 ALT 20 Alkaline Phosphatase 55 Total Protein 6.9 Albumin 4.2 Globulin 2.7 Albumin/Globulin Ratio 1.6 Lipase 24 Urine Color Urine Clarity Urine pH Ur Specific [place] Urine Protein Urine Glucose (UA) Urine Ketones Urine Occult Blood Urine Nitrite Urine Bilirubin Urine Urobilinogen Ur Leukocyte Esterase Urine RBC Urine WBC Ur Squamous Epith Cells Urine Bacteria Ur Microscopic Review Urine Culture Comments Urine HCG, Qual Nasal Adenovirus (PCR) Nasal B. parapertussis DNA (PCR) Nasal Coronavir 229E PCR Nasal Coronavir HKU1 PCR Nasal Coronavir NL63 PCR Nasal Coronavir OC43 PCR Nasal Enterovir/Rhinovir PCR Nasal Influenza B PCR Nasal Influenza A PCR Nasal Parainfluen 1 PCR Nasal Parainfluen 2 PCR Nasal Parainfluen 3 PCR Nasal Parainfluen 4 PCR Nasal RSV (PCR) Nasal B.pertussis DNA PCR Nasal C.pneumoniae (PCR) Shoaib Human Metapneumo PCR Nasal M.pneumoniae (PCR) Nasal SARS-CoV-2 (PCR) Ethyl Alcohol < 5.0 06/11/21 06/11/21 18:35 19:25 WBC RBC Hgb Hct MCV MCH MCHC RDW Plt Count MPV Neut # (Auto) Lymph # (Auto) [place] # (Auto) Eos # (Auto) Baso # (Auto) Absolute Nucleated RBC Nucleated RBC % Sodium Potassium Chloride Carbon Dioxide Anion Gap BUN Creatinine Estimated GFR (MDRD) Glucose Calcium Total Bilirubin AST ALT Alkaline Phosphatase Total Protein Albumin Globulin Albumin/Globulin Ratio Lipase Urine Color LT. YELLOW Urine Clarity CLEAR Urine pH 6.0 Ur Specific [place] <=1.005 Urine Protein NEGATIVE Urine Glucose (UA) 500 H Urine Ketones NEGATIVE Urine Occult Blood SMALL H Urine Nitrite NEGATIVE Urine Bilirubin NEGATIVE Urine Urobilinogen 0.2 (NORMAL) Ur Leukocyte Esterase NEGATIVE Urine RBC 0-5 Urine WBC 0-3 Ur Squamous Epith Cells RARE Squamous Urine Bacteria None Seen Ur Microscopic Review INDICATED Urine Culture Comments NOT INDICATED Urine HCG, Qual NEGATIVE Nasal Adenovirus (PCR) NOT DETECTED Nasal B. parapertussis DNA (PCR) NOT DETECTED Nasal Coronavir 229E PCR NOT DETECTED Nasal Coronavir HKU1 PCR NOT DETECTED Nasal Coronavir NL63 PCR NOT DETECTED Nasal Coronavir OC43 PCR NOT DETECTED Nasal Enterovir/Rhinovir PCR NOT DETECTED Nasal Influenza B PCR NOT DETECTED Nasal Influenza A PCR NOT DETECTED Nasal Parainfluen 1 PCR NOT DETECTED Nasal Parainfluen 2 PCR NOT DETECTED Nasal Parainfluen 3 PCR NOT DETECTED Nasal Parainfluen 4 PCR NOT DETECTED Nasal RSV (PCR) NOT DETECTED Nasal B.pertussis DNA PCR NOT DETECTED Nasal C.pneumoniae (PCR) NOT DETECTED Shoaib Human Metapneumo PCR NOT DETECTED Nasal M.pneumoniae (PCR) NOT DETECTED Nasal SARS-CoV-2 (PCR) NOT DETECTED Ethyl Alcohol PD MEDICAL DECISION MAKING - ED course Complexity details: reviewed old records, reviewed results, re-evaluated yanick minor, considered differential, d/w patient, d/w family, d/w revenue cycle consultant ED course: Patient with significant hyponatremia. Started on a small amount of hypertonic saline given the altered mental status. 15 mL/h x 2 hours. This will be rechecked by the hospitalist. No seizures. Discussed the case with Dr. Farrell, hospitalist who accepts. Patient was given Ativan to help calm her. She is repeatedly asking for water in the emergency department. She is also asking to go to the bathroom regularly, a commode was placed next to the bed as she will drink the water from the faucet and/or toilet. This document was made in part using voice recognition software. While efforts are made to proofread this document, sound alike and grammatical errors may occur. Departure - Departure Disposition: [facility] DC/Xfer Clinical Impression: Hyponatremia, Psychogenic polydipsia Altered mental status Qualifiers: Altered mental status type: unspecified Qualified Code(s): R41.82 - Altered mental status, unspecified Condition: Stable Discharge Date/Time: 06/11/21 21:20
[2021-06-11 18:49] LABS: BILIRUBIN,URINE NEGATIVE (NEGATIVE); GLUCOSE, URINE (UA) 500 mg/dL (NEGATIVE); KETONES,URINE (UA) NEGATIVE (NEGATIVE); LEUKOCYTE ESTERASE, URINE NEGATIVE (NEGATIVE); NITRITE,URINE NEGATIVE (NEGATIVE); OCCULT BLOOD,URINE SMALL (NEGATIVE); PROTEIN,URINE NEGATIVE (NEGATIVE); UROBILINOGEN,URINE 0.2 (NORMAL) E.U./dL (NORMAL)
[2021-06-11 18:51] LABS: CLARITY,URINE CLEAR (CLEAR); HCG UR QUAL NEGATIVE
[2021-06-11 18:59] LABS: BACTERIA,URINE None Seen /HPF (None Seen); RBC,URINE 0-5 /HPF (0-5); SQUAMOUS EPITHELIAL CELL,UR RARE Squamous (<= Few); WBC,URINE 0-3 /HPF (0-5)
[2021-06-11] MEDS ORDERED: SODIUM CHLORIDE 3% HYPERTONIC 500 ML IV SCH (19:00)
[2021-06-11] MEDS ORDERED: OLANZapine 10 MG VIAL IM STA (19:07)
[2021-06-11] MEDS ORDERED: oxyCODONE 5 MG TABLET PO PRN (20:19)
[2021-06-11] MEDS ORDERED: ONDANSETRON ODT 4 MG TABLET TL PRN (20:19)
[2021-06-11] MEDS ORDERED: ONDANSETRON 4 MG/2 ML VIAL IVP PRN (20:19)
[2021-06-11] MEDS ORDERED: ACETAMINOPHEN 325 MG TABLET PO PRN (20:19)
[2021-06-11] MEDS ORDERED: SODIUM CHLORIDE FLUSH 0.9% 10 ML SYRINGE IVP PRN (20:19)
[2021-06-11 21:03] LABS: B. PARAPERTUSSIS- RESP PCR PAN NOT DETECTED; B. PERTUSSIS- RESP PCR PANEL NOT DETECTED; C. PNEUMONIAE- RESP PCR PANEL NOT DETECTED; CORONAVIRUS 229E-RESP PCR NOT DETECTED; CORONAVIRUS HKU1-RESP PCR NOT DETECTED; CORONAVIRUS NL63-RESP PCR NOT DETECTED; CORONAVIRUS OC43-RESP PCR NOT DETECTED; HUMAN METAPNEUMOVIRUS NOT DETECTED; INFLUENZA A- RESP PCR PANEL NOT DETECTED; INFLUENZA B - RESP PCR PANEL NOT DETECTED; M. PNEUMONIAE- RESP PCR PANEL NOT DETECTED; PARAINFLUENZA VIRUS 1 NOT DETECTED; PARAINFLUENZA VIRUS 2 NOT DETECTED; PARAINFLUENZA VIRUS 3 NOT DETECTED; PARAINFLUENZA VIRUS 4 NOT DETECTED; RHINOVIRUS/ENTEROVIRUS NOT DETECTED; RSV- RESP PCR PANEL NOT DETECTED; SARS-CoV-2 -RESP PCR PANEL NOT DETECTED
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
[2021-06-11 22:06] LABS: CALCIUM 9.2 mg/dL (8.5-10.3); CREATININE 0.6 mg/dL (0.4-1.0); POTASSIUM 3.8 mmol/L (3.5-5.0)
[2021-06-12 00:35] LABS: AMPHETAMINE SCREEN,URINE NEGATIVE (NEGATIVE); BARBITURATE SCREEN,UR NEGATIVE (NEGATIVE); BENZODIAZEPINES SCREEN, URINE NEGATIVE (NEGATIVE); COCAINE SCREEN URINE NEGATIVE (NEGATIVE); METHADONE SCREEN, URINE NEGATIVE (NEGATIVE); METHAMPHETAMINES SCREEN, URINE NEGATIVE (NEGATIVE); MUDS CUTOFF CONCENTRATIONS CUTOFF CONC BELOW:; OPIATE SCREEN, URINE NEGATIVE (NEGATIVE); OXYCODONE SCREEN, URINE NEGATIVE (NEGATIVE); PROPOXYPHENE SCREEN, URINE NEGATIVE (NEGATIVE); THC CANNABINOID SCREEN, URINE NEGATIVE (NEGATIVE); TRICYCLIC ANTIDEPRESSANT,URINE NEGATIVE (NEGATIVE)
[2021-06-12 05:38] LABS: CALCIUM 9.6 mg/dL (8.5-10.3); CREATININE 0.6 mg/dL (0.4-1.0); POTASSIUM 4.2 mmol/L (3.5-5.0)
[2021-06-12] MEDS: SODIUM CHLORIDE FLUSH 0.9% 10 ML SYRINGE IVP SCH ×3 (05:41→17:12)
[2021-06-12] MEDS: INSULIN ASPART 300 UNIT/3 ML PEN SUBQ SCH ×4 (07:39→21:03)
--- NOTE | 2021-06-12 07:47 | PROVIDER PROGRESS NOTE ---
Subjective - Prog Note Date Prog Note Date: 06/12/21 Prog Note Time: 09:00 - Subjective Pt reports feeling: No change Subjective: Patient reports that she feels fine this morning. Denies headache, weakness, cramping, numbness, tingling or abdominal pain. Reports that she slept well over night and has been urinating frequently. She knows that she is in the hospital for low sodium but when asked what happened she says, "I don't know and I don't want to know." Current Medications - Current Medications Current Medications: Active Medications Acetaminophen (Acetaminophen 325 Mg Tablet) 650 mg PO Q4HR PRN PRN Reason: Pain 1 to 4 Desmopressin Acetate (Desmopressin 4 Mcg/Ml Amp) 1 mcg SUBQ ONCE ONE Stop: 06/12/21 08:31 Dextrose (D5w) 1,000 mls @ 150 mls/hr IV .Q6H40M BETSY Stop: 06/12/21 14:39 Insulin Aspart (Insulin Aspart 300 Unit/3 Ml Pen) 1 - 5 unit SUBQ 0800,1200,1700,2100 [facility]; Protocol Last Admin: 06/12/21 07:39 Dose: Not Given Ondansetron HCl (Ondansetron Odt 4 Mg Tablet) 4 mg TL Q6HR PRN PRN Reason: Nausea / Vomiting Ondansetron HCl (Ondansetron 4 Mg/2 Ml Vial) 4 mg IVP Q6HR PRN PRN Reason: Nausea / Vomiting Oxycodone HCl (Oxycodone 5 Mg Tablet) 5 mg PO Q4HR PRN PRN Reason: Pain 5 to 7 Sodium Chloride (Sodium Chloride Flush 0.9% 10 Ml Syringe) 10 ml IVP PRN PRN PRN Reason: NEEDED PER PROVIDER ORDERS Last Admin: 06/12/21 05:41 Dose: 10 ml Sodium Chloride (Sodium Chloride Flush 0.9% 10 Ml Syringe) 10 ml IVP 0100,0900,1700 [facility] Last Admin: 06/12/21 05:41 Dose: 10 ml risperiDONE [Risperdal] 3 mg PO BID 11/03/20 acetaZOLAMIDE [Diamox] 250 mg PO BID 11/04/20 Gabapentin [Neurontin] 100 mg PO BID 06/11/21 Naltrexone HCl 50 mg PO DAILY 06/11/21 Venlafaxine HCl [Effexor Xr] 100 mg PO DAILY 06/11/21 Objective - Vital Signs/Intake & Output Reviewed Vital Signs: Yes Vital Signs: Vital Signs x48h Temp Pulse Resp BP Pulse Ox 06/12/21 07:35 36.9 C 98 14 114/68 93 06/12/21 05:40 37.3 C 90 15 128/70 95 06/12/21 01:04 36.9 C 06/12/21 00:30 102 H 13 125/63 93 Intake & Output: Intake & Output 06/09/21 06/10/21 06/11/21 06/12/21 23:59 23:59 23:59 23:59 Intake Total 330 1232 Output Total 1750 3230 Balance -1420 -1018 - Objective General Appearance: positive: No acute distress, Alert, Other (right lateral recumbant position in bed with mask over eyes asking for water) Eyes Bilateral: positive: Normal inspection, PERRL, EOMI ENT: positive: ENT inspection nml, No signs of dehydration Neck: positive: Nml inspection Respiratory: positive: No respiratory distress, Breath sounds nml Cardiovascular: positive: Regular rate & rhythm, No murmur, No gallop Abdomen: positive: Non-tender, No distention Skin: positive: Color nml Extremities: positive: Non-tender, Nml appearance, No pedal edema Neurologic/Psychiatric: positive: Oriented x3, Motor nml, Sensation nml, Other (Repetative speech and flat affect) - Lab Results Fish Bones: 06/12/21 05:12 06/12/21 05:12 Other Labs: Lab Results x24hrs 06/12/21 06/12/21 06/11/21 Range/Units 07:31 05:12 21:38 WBC (4.8-10.8) x10^3/uL RBC (4.20-5.40) 10^6/uL Hgb (12.0-16.0) g/dL Hct (37.0-47.0) % MCV (81.0-99.0) fL MCH (27.0-31.0) pg MCHC (32.0-36.0) g/dL RDW (12.0-15.0) % Plt Count (130-450) 10^3/uL MPV (7.9-10.8) fL Neut # (Auto) (1.5-6.6) 10^3/uL Lymph # (Auto) (1.5-3.5) 10^3/uL [place] # (Auto) (0.0-1.0) 10^3/uL Eos # (Auto) (0.0-0.7) 10^3/uL Baso # (Auto) (0.0-0.1) 10^3/uL Absolute Nucleated RBC x10^3/uL Nucleated RBC % /100WBC Sodium 136 125 L (135-145) mmol/L Potassium 4.2 3.8 (3.5-5.0) mmol/L Chloride 98 L 88 L (101-111) mmol/L Carbon Dioxide 28 28 (21-32) mmol/L Anion Gap 10.0 9.0 (6-13) BUN 6 6 (6-20) mg/dL Creatinine 0.6 0.6 (0.4-1.0) mg/dL Estimated GFR (MDRD) 107 107 (>89) Glucose 125 H 140 H (70-100) mg/dL POC Whole Bld Glucose 126 H (70 - 100) mg/dL Calcium 9.6 9.2 (8.5-10.3) mg/dL Total Bilirubin (0.2-1.0) mg/dL AST (10-42) IU/L ALT (10-60) IU/L Alkaline Phosphatase (42-121) IU/L Total Protein (6.7-8.2) g/dL Albumin (3.2-5.5) g/dL Globulin (2.1-4.2) g/dL Albumin/Globulin Ratio (1.0-2.2) Lipase (22-51) U/L Urine Color Urine Clarity (CLEAR) Urine pH (5.0-7.5) PH Ur Specific [place] (1.002-1.030) Urine Protein (NEGATIVE) mg/dL Urine Glucose (UA) (NEGATIVE) mg/dL Urine Ketones (NEGATIVE) mg/dL Urine Occult Blood (NEGATIVE) Urine Nitrite (NEGATIVE) Urine Bilirubin (NEGATIVE) Urine Urobilinogen (NORMAL) E.U./dL Ur Leukocyte Esterase (NEGATIVE) Urine RBC (0-5) /HPF Urine WBC (0-5) /HPF Ur Squamous Epith Cells (<= Few) Urine Bacteria (None Seen) /HPF Ur Microscopic Review Urine Culture Comments Urine HCG, Qual Nasal Adenovirus (PCR) Nasal B. parapertussis DNA (PCR) Nasal Coronavir 229E PCR Nasal Coronavir HKU1 PCR Nasal Coronavir NL63 PCR Nasal Coronavir OC43 PCR Nasal Enterovir/Rhinovir PCR Nasal Influenza B PCR Nasal Influenza A PCR Nasal Parainfluen 1 PCR Nasal Parainfluen 2 PCR Nasal Parainfluen 3 PCR Nasal Parainfluen 4 PCR Nasal RSV (PCR) Nasal Screen MRSA (PCR) (NEGATIVE) Nasal B.pertussis DNA PCR Nasal C.pneumoniae (PCR) Shoaib Human Metapneumo PCR Nasal M.pneumoniae (PCR) Nasal SARS-CoV-2 (PCR) Urine Opiates Screen (NEGATIVE) Ur Oxycodone Screen (NEGATIVE) Urine Methadone Screen (NEGATIVE) Ur Propoxyphene Screen (NEGATIVE) Ur Barbiturates Screen (NEGATIVE) Ur Tricyclics Screen (NEGATIVE) Ur Phencyclidine Scrn (NEGATIVE) Ur Amphetamine Screen (NEGATIVE) U Methamphetamines Scrn (NEGATIVE) U Benzodiazepines Scrn (NEGATIVE) Urine Cocaine Screen (NEGATIVE) U Cannabinoids Screen (NEGATIVE) Ethyl Alcohol mg/dL 06/11/21 06/11/21 06/11/21 Range/Units 21:15 19:25 18:35 WBC (4.8-10.8) x10^3/uL RBC (4.20-5.40) 10^6/uL Hgb (12.0-16.0) g/dL Hct (37.0-47.0) % MCV (81.0-99.0) fL MCH (27.0-31.0) pg MCHC (32.0-36.0) g/dL RDW (12.0-15.0) % Plt Count (130-450) 10^3/uL MPV (7.9-10.8) fL Neut # (Auto) (1.5-6.6) 10^3/uL Lymph # (Auto) (1.5-3.5) 10^3/uL [place] # (Auto) (0.0-1.0) 10^3/uL Eos # (Auto) (0.0-0.7) 10^3/uL Baso # (Auto) (0.0-0.1) 10^3/uL Absolute Nucleated RBC x10^3/uL Nucleated RBC % /100WBC Sodium (135-145) mmol/L Potassium (3.5-5.0) mmol/L Chloride (101-111) mmol/L Carbon Dioxide (21-32) mmol/L Anion Gap (6-13) BUN (6-20) mg/dL Creatinine (0.4-1.0) mg/dL Estimated GFR (MDRD) (>89) Glucose (70-100) mg/dL POC Whole Bld Glucose (70 - 100) mg/dL Calcium (8.5-10.3) mg/dL Total Bilirubin (0.2-1.0) mg/dL AST (10-42) IU/L ALT (10-60) IU/L Alkaline Phosphatase (42-121) IU/L Total Protein (6.7-8.2) g/dL Albumin (3.2-5.5) g/dL Globulin (2.1-4.2) g/dL Albumin/Globulin Ratio (1.0-2.2) Lipase (22-51) U/L Urine Color LT. YELLOW Urine Clarity CLEAR (CLEAR) Urine pH 6.0 (5.0-7.5) PH Ur Specific [place] <=1.005 (1.002-1.030) Urine Protein NEGATIVE (NEGATIVE) mg/dL Urine Glucose (UA) 500 H (NEGATIVE) mg/dL Urine Ketones NEGATIVE (NEGATIVE) mg/dL Urine Occult Blood SMALL H (NEGATIVE) Urine Nitrite NEGATIVE (NEGATIVE) Urine Bilirubin NEGATIVE (NEGATIVE) Urine Urobilinogen 0.2 (NORMAL) (NORMAL) E.U./dL Ur Leukocyte Esterase NEGATIVE (NEGATIVE) Urine RBC 0-5 (0-5) /HPF Urine WBC 0-3 (0-5) /HPF Ur Squamous Epith Cells RARE Squamous (<= Few) Urine Bacteria None Seen (None Seen) /HPF Ur Microscopic Review INDICATED Urine Culture Comments NOT INDICATED Urine HCG, Qual NEGATIVE Nasal Adenovirus (PCR) NOT DETECTED Nasal B. parapertussis DNA (PCR) NOT DETECTED Nasal Coronavir 229E PCR NOT DETECTED Nasal Coronavir HKU1 PCR NOT DETECTED Nasal Coronavir NL63 PCR NOT DETECTED Nasal Coronavir OC43 PCR NOT DETECTED Nasal Enterovir/Rhinovir PCR NOT DETECTED Nasal Influenza B PCR NOT DETECTED Nasal Influenza A PCR NOT DETECTED Nasal Parainfluen 1 PCR NOT DETECTED Nasal Parainfluen 2 PCR NOT DETECTED Nasal Parainfluen 3 PCR NOT DETECTED Nasal Parainfluen 4 PCR NOT DETECTED Nasal RSV (PCR) NOT DETECTED Nasal Screen MRSA (PCR) NEGATIVE (NEGATIVE) Nasal B.pertussis DNA PCR NOT DETECTED Nasal C.pneumoniae (PCR) NOT DETECTED Shoaib Human Metapneumo PCR NOT DETECTED Nasal M.pneumoniae (PCR) NOT DETECTED Nasal SARS-CoV-2 (PCR) NOT DETECTED Urine Opiates Screen NEGATIVE (NEGATIVE) Ur Oxycodone Screen NEGATIVE (NEGATIVE) Urine Methadone Screen NEGATIVE (NEGATIVE) Ur Propoxyphene Screen NEGATIVE (NEGATIVE) Ur Barbiturates Screen NEGATIVE (NEGATIVE) Ur Tricyclics Screen NEGATIVE (NEGATIVE) Ur Phencyclidine Scrn NEGATIVE (NEGATIVE) Ur Amphetamine Screen NEGATIVE (NEGATIVE) U Methamphetamines Scrn NEGATIVE (NEGATIVE) U Benzodiazepines Scrn NEGATIVE (NEGATIVE) Urine Cocaine Screen NEGATIVE (NEGATIVE) U Cannabinoids Screen NEGATIVE (NEGATIVE) Ethyl Alcohol mg/dL 06/11/21 06/11/21 06/11/21 Range/Units 18:10 18:10 18:10 WBC 16.6 H (4.8-10.8) x10^3/uL RBC 4.42 (4.20-5.40) 10^6/uL Hgb 13.7 (12.0-16.0) g/dL Hct 39.7 (37.0-47.0) % MCV 89.8 (81.0-99.0) fL MCH 31.0 (27.0-31.0) pg MCHC 34.5 (32.0-36.0) g/dL RDW 11.9 L (12.0-15.0) % Plt Count 239 (130-450) 10^3/uL MPV 9.0 (7.9-10.8) fL Neut # (Auto) 14.4 H (1.5-6.6) 10^3/uL Lymph # (Auto) 1.1 L (1.5-3.5) 10^3/uL [place] # (Auto) 0.9 (0.0-1.0) 10^3/uL Eos # (Auto) 0.0 (0.0-0.7) 10^3/uL Baso # (Auto) 0.0 (0.0-0.1) 10^3/uL Absolute Nucleated RBC 0.00 x10^3/uL Nucleated RBC % 0.0 /100WBC Sodium 113 L* (135-145) mmol/L Potassium 3.6 (3.5-5.0) mmol/L Chloride 81 L (101-111) mmol/L Carbon Dioxide 22 (21-32) mmol/L Anion Gap 10.0 (6-13) BUN 7 (6-20) mg/dL Creatinine 0.7 (0.4-1.0) mg/dL Estimated GFR (MDRD) 89 (>89) Glucose 247 H (70-100) mg/dL POC Whole Bld Glucose (70 - 100) mg/dL Calcium 8.6 (8.5-10.3) mg/dL Total Bilirubin 0.4 (0.2-1.0) mg/dL AST 33 (10-42) IU/L ALT 20 (10-60) IU/L Alkaline Phosphatase 55 (42-121) IU/L Total Protein 6.9 (6.7-8.2) g/dL Albumin 4.2 (3.2-5.5) g/dL Globulin 2.7 (2.1-4.2) g/dL Albumin/Globulin Ratio 1.6 (1.0-2.2) Lipase 24 (22-51) U/L Urine Color Urine Clarity (CLEAR) Urine pH (5.0-7.5) PH Ur Specific [place] (1.002-1.030) Urine Protein (NEGATIVE) mg/dL Urine Glucose (UA) (NEGATIVE) mg/dL Urine Ketones (NEGATIVE) mg/dL Urine Occult Blood (NEGATIVE) Urine Nitrite (NEGATIVE) Urine Bilirubin (NEGATIVE) Urine Urobilinogen (NORMAL) E.U./dL Ur Leukocyte Esterase (NEGATIVE) Urine RBC (0-5) /HPF Urine WBC (0-5) /HPF Ur Squamous Epith Cells (<= Few) Urine Bacteria (None Seen) /HPF Ur Microscopic Review Urine Culture Comments Urine HCG, Qual Nasal Adenovirus (PCR) Nasal B. parapertussis DNA (PCR) Nasal Coronavir 229E PCR Nasal Coronavir HKU1 PCR Nasal Coronavir NL63 PCR Nasal Coronavir OC43 PCR Nasal Enterovir/Rhinovir PCR Nasal Influenza B PCR Nasal Influenza A PCR Nasal Parainfluen 1 PCR Nasal Parainfluen 2 PCR Nasal Parainfluen 3 PCR Nasal Parainfluen 4 PCR Nasal RSV (PCR) Nasal Screen MRSA (PCR) (NEGATIVE) Nasal B.pertussis DNA PCR Nasal C.pneumoniae (PCR) Shoaib Human Metapneumo PCR Nasal M.pneumoniae (PCR) Nasal SARS-CoV-2 (PCR) Urine Opiates Screen (NEGATIVE) Ur Oxycodone Screen (NEGATIVE) Urine Methadone Screen (NEGATIVE) Ur Propoxyphene Screen (NEGATIVE) Ur Barbiturates Screen (NEGATIVE) Ur Tricyclics Screen (NEGATIVE) Ur Phencyclidine Scrn (NEGATIVE) Ur Amphetamine Screen (NEGATIVE) U Methamphetamines Scrn (NEGATIVE) U Benzodiazepines Scrn (NEGATIVE) Urine Cocaine Screen (NEGATIVE) U Cannabinoids Screen (NEGATIVE) Ethyl Alcohol < 5.0 mg/dL ABX Reporting Has patient been on IV antibiotics over the past 48 hours?: No Sepsis Event Note (H) - Evaluation Current Stage of Sepsis: Ruled out Assessment/Plan - Problem List (1) Acute hyponatremia Impression: Sodium 113 upon admission. She is not taking any medications that would cause this. She was previously worked up for idiopathic intercranial hypertension and found to be negative. Her physical exam shows no signs of water retention, likely euvolemic hyponatremia. She is producing large volumes of dilute urine, specific gravity <1.005 which makes SIADH unlikely. She was also previously worked up by nephrology, found no sodium imbalance or kidney issues. Her kidney function is presently normal. Her hyponatremia is likely due to consumption of excessive amount of water. Sodium 136 this morning after 30 cc hypertonic saline over 2 hours last night. Hyponatremia is likely acute based on her history and the fact that she was symptomatic with altered mental status so the risk for central pontine demyelination is low. However due to her rapid increase in sodium of 23 mEq/L over 12 hours, we are still concerned for rapid overcorrection so 1,000 mL 5% dextrose in water at a rate of 150 mL/hr and 1 mcg desmopressin given today to bring her sodium down and allow us to correct more gradually. Will to continue to monitor BMP closely. (2) Psychogenic polydipsia Impression: She is hyponatremic so diabetes insipitus unlikely the cause of her polydipsia. Patient's sister reports that she has been locking herself in the bathroom and taking multiple showers a day in order to consume excessive amounts of water. She had a similar episode in October 2020 that results in seizures, intubation and a 2 month admission at [facility]. Her sister reports that she had been doing well until seeing her mother 3 days ago. This is usually a trigger for her psychologic issues. She has a history of OCD, schizophrenia, bipolar disorder and anxiety. Her tox screen is negative. Plan Free water restriction. Patient has an appointment with a psychologist today to talk about medication adjustments. Will see if psychologist would be willing to do an inpatient visit. (3) Altered mental status Impression: Resolved, back to baseline, confirmed by sister. Upon admission, her sister reported that her speech was more confused and repetitive than usual. Will continue to reassess her mental status as her sodium stabilizes. Qualifiers: Altered mental status type: unspecified Qualified Code(s): R41.82 - Altered mental status, unspecified (4) Neurodegenerative cognitive impairment Impression: Patient is unable to care for herself at baseline and resides in a correction. She has a history of OCD, anxiety, schizophrenia and bipolar disorder. (5) Anxiety disorder, unspecified Impression: Continue usual home medications during admission. Will adjust based on psy chologist recommendations. Qualifiers: Anxiety disorder type: unspecified anxiety disorder Qualified Code(s): F41.9 - Anxiety disorder, unspecified (6) Obsessive compulsive disorder Impression: Continue usual home medications during admission. Will adjust based on psychologist recommendations. (7) Schizophrenia Impression: Continue usual home medications during admission. Will adjust based on psychologist recommendations. (8) Bipolar disorder, unspecified Impression: Continue usual home medications during admission. Will adjust based on psychologist recommendations. (9) Controlled type 2 diabetes mellitus without complication, without long-term current use of insulin Impression: Previously documented, chronic issue. Patient is not currently on medications, manages blood sugar with diet. A1c 5.5 10/14/2020. Blood sugar 247 upon admission, 125 today. Will continue to monitor during admission, sliding insulin scale as needed.
[2021-06-12] MEDS ORDERED: DEXTROSE 5% 1,000 ML IV SCH ×2 (08:00→17:00)
[2021-06-12] MEDS ORDERED: DESMOPRESSIN 4 MCG/ML AMP SUBQ ONE (08:30)
[2021-06-12 10:26] LABS: BASOPHILS % (AUTO) 0.3 %; EOSINOPHILS # (AUTO) 0.1 10^3/uL (0.0-0.7); EOSINOPHILS % (AUTO) 0.7 %; HCT - HEMATOCRIT 43.9 % (37.0-47.0); HGB - HEMOGLOBIN 14.6 g/dL (12.0-16.0); LYMPHOCYTES # (AUTO) 1.5 10^3/uL (1.5-3.5); LYMPHOCYTES % (AUTO) 19.8 %; MEAN CORPUSCULAR HEMOGLOBIN 29.9 pg (27.0-31.0); MEAN CORPUSCULAR HGB CONC 33.3 g/dL (32.0-36.0); MEAN PLATELET VOLUME 10.3 fL (7.9-10.8); MONOCYTES % (AUTO) 12.9 %; PLT - PLATELET COUNT 272 10^3/uL (130-450); RED BLOOD COUNT 4.88 10^6/uL (4.20-5.40); RED CELL DISTRIBUTION WIDTH 12.2 % (12.0-15.0); WHITE BLOOD COUNT 7.5 x10^3/uL (4.8-10.8)
[2021-06-12 11:10] LABS: CALCIUM 9.5 mg/dL (8.5-10.3); CREATININE 0.8 mg/dL (0.4-1.0); POTASSIUM 4.4 mmol/L (3.5-5.0)
[2021-06-12 13:01] LABS: ESTIMATED AVERAGE GLUCOSE 137 mg/dL (70-100); HEMOGLOBIN A1c% 6.4 % (4.27-6.07)
[2021-06-12 15:16] LABS: CALCIUM 9.6 mg/dL (8.5-10.3); CREATININE 0.8 mg/dL (0.4-1.0); POTASSIUM 4.2 mmol/L (3.5-5.0)
[2021-06-12 19:25] LABS: CALCIUM 9.1 mg/dL (8.5-10.3); CREATININE 0.9 mg/dL (0.4-1.0); POTASSIUM 3.8 mmol/L (3.5-5.0)
[2021-06-12] MEDS: GABAPENTIN 100 MG CAPSULE PO SCH (21:04)
[2021-06-12] MEDS: risperiDONE 1 MG TABLET PO SCH (21:04)
[2021-06-13] MEDS: SODIUM CHLORIDE FLUSH 0.9% 10 ML SYRINGE IVP SCH ×3 (04:16→18:00)
[2021-06-13 04:46] LABS: CALCIUM 8.5 mg/dL (8.5-10.3); CREATININE 0.8 mg/dL (0.4-1.0); POTASSIUM 3.8 mmol/L (3.5-5.0)
--- NOTE | 2021-06-13 07:38 | PROVIDER PROGRESS NOTE ---
Subjective - Prog Note Date Prog Note Date: 06/13/21 - Subjective Pt reports feeling: Improved Subjective: Patient reports that she feeling better today. She denies headache, weakness, numbness, tingling or dizziness. Reports that she has been moving around and going to the bathroom frequently. Repetitive speech, she requests juice and ice chips multiple times. Current Medications - Current Medications Current Medications: Active Medications Acetaminophen (Acetaminophen 325 Mg Tablet) 650 mg PO Q4HR PRN PRN Reason: Pain 1 to 4 Gabapentin (Gabapentin 100 Mg Capsule) 100 mg PO BID [facility] Last Admin: 06/12/21 21:04 Dose: 100 mg Insulin Aspart (Insulin Aspart 300 Unit/3 Ml Pen) 1 - 5 unit SUBQ 0800,1200,1700,2100 [facility]; Protocol Last Admin: 06/12/21 21:03 Dose: 1 unit Ondansetron HCl (Ondansetron Odt 4 Mg Tablet) 4 mg TL Q6HR PRN PRN Reason: Nausea / Vomiting Ondansetron HCl (Ondansetron 4 Mg/2 Ml Vial) 4 mg IVP Q6HR PRN PRN Reason: Nausea / Vomiting Oxycodone HCl (Oxycodone 5 Mg Tablet) 5 mg PO Q4HR PRN PRN Reason: Pain 5 to 7 Patient Own Med ( Naltrexone Hcl 50 Mg Tablet) 1 each PO DAILY [facility] Risperidone (Risperidone 1 Mg Tablet) 3 mg PO BID [facility] Last Admin: 06/12/21 21:04 Dose: 3 mg Sodium Chloride (Sodium Chloride Flush 0.9% 10 Ml Syringe) 10 ml IVP PRN PRN PRN Reason: NEEDED PER PROVIDER ORDERS Last Admin: 06/12/21 05:41 Dose: 10 ml Sodium Chloride (Sodium Chloride Flush 0.9% 10 Ml Syringe) 10 ml IVP 0100,0900,1700 [facility] Last Admin: 06/13/21 04:16 Dose: 10 ml Venlafaxine HCl (Venlafaxine Er 75 Mg Capsule) 100 mg PO DAILY [facility] risperiDONE [Risperdal] 3 mg PO BID 11/03/20 acetaZOLAMIDE [Diamox] 250 mg PO BID 11/04/20 Gabapentin [Neurontin] 100 mg PO BID 06/11/21 Naltrexone HCl 50 mg PO DAILY 06/11/21 Venlafaxine HCl [Effexor Xr] 100 mg PO DAILY 06/11/21 Objective - Vital Signs/Intake & Output Reviewed Vital Signs: Yes Vital Signs: Vital Signs x48h Temp Pulse Resp BP Pulse Ox 06/13/21 04:00 77 13 121/82 H 96 06/13/21 01:00 36.7 C 76 11 L 96 Intake & Output: Intake & Output 06/10/21 06/11/21 06/12/21 06/13/21 23:59 23:59 23:59 23:59 Intake Total 330 3537.0 875 Output Total 1750 2900 1000 Balance -1420 637.0 -125 - Objective General Appearance: positive: No acute distress, Other (Supine on bed with mask over eyes, asking for juice.) Eyes Bilateral: positive: Normal inspection, PERRL ENT: positive: ENT inspection nml, Pharynx nml, No signs of dehydration Neck: positive: No JVD Respiratory: positive: No respiratory distress, Breath sounds nml Cardiovascular: positive: Regular rate & rhythm, No murmur, No gallop Abdomen: positive: Non-tender, No distention Skin: positive: Color nml, Warm, Dry Extremities: positive: Non-tender, Nml appearance, No pedal edema Neurologic/Psychiatric: positive: Oriented x3, Motor nml, Sensation nml, Other (Repetitive speech. Flat affect.) - Lab Results Fish Bones: 06/12/21 05:12 06/13/21 10:20 Other Labs: Lab Results x24hrs 06/13/21 06/12/21 06/12/21 Range/Units 04:26 20:44 19:05 WBC (4.8-10.8) x10^3/uL RBC (4.20-5.40) 10^6/uL Hgb (12.0-16.0) g/dL Hct (37.0-47.0) % MCV (81.0-99.0) fL MCH (27.0-31.0) pg MCHC (32.0-36.0) g/dL RDW (12.0-15.0) % Plt Count (130-450) 10^3/uL MPV (7.9-10.8) fL Neut # (Auto) (1.5-6.6) 10^3/uL Lymph # (Auto) (1.5-3.5) 10^3/uL Morton # (Auto) (0.0-1.0) 10^3/uL Eos # (Auto) (0.0-0.7) 10^3/uL Baso # (Auto) (0.0-0.1) 10^3/uL Absolute Nucleated RBC x10^3/uL Nucleated RBC % /100WBC Sodium 126 L 131 L (135-145) mmol/L Potassium 3.8 3.8 (3.5-5.0) mmol/L Chloride 90 L 94 L (101-111) mmol/L Carbon Dioxide 28 28 (21-32) mmol/L Anion Gap 8.0 9.0 (6-13) BUN 10 12 (6-20) mg/dL Creatinine 0.8 0.9 (0.4-1.0) mg/dL Estimated GFR (MDRD) 77 L 67 L (>89) Glucose 121 H 180 H (70-100) mg/dL POC Whole Bld Glucose 168 H (70 - 100) mg/dL Estimat Average Glucose (70-100) mg/dL Hemoglobin A1c % (4.27-6.07) % Calcium 8.5 9.1 (8.5-10.3) mg/dL 06/12/21 06/12/21 06/12/21 Range/Units 16:29 15:00 10:55 WBC (4.8-10.8) x10^3/uL RBC (4.20-5.40) 10^6/uL Hgb (12.0-16.0) g/dL Hct (37.0-47.0) % MCV (81.0-99.0) fL MCH (27.0-31.0) pg MCHC (32.0-36.0) g/dL RDW (12.0-15.0) % Plt Count (130-450) 10^3/uL MPV (7.9-10.8) fL Neut # (Auto) (1.5-6.6) 10^3/uL Lymph # (Auto) (1.5-3.5) 10^3/uL Morton # (Auto) (0.0-1.0) 10^3/uL Eos # (Auto) (0.0-0.7) 10^3/uL Baso # (Auto) (0.0-0.1) 10^3/uL Absolute Nucleated RBC x10^3/uL Nucleated RBC % /100WBC Sodium 132 L 133 L (135-145) mmol/L Potassium 4.2 4.4 (3.5-5.0) mmol/L Chloride 94 L 96 L (101-111) mmol/L Carbon Dioxide 28 28 (21-32) mmol/L Anion Gap 10.0 9.0 (6-13) BUN 8 7 (6-20) mg/dL Creatinine 0.8 0.8 (0.4-1.0) mg/dL Estimated GFR (MDRD) 77 L 77 L (>89) Glucose 122 H 139 H (70-100) mg/dL POC Whole Bld Glucose 112 H (70 - 100) mg/dL Estimat Average Glucose (70-100) mg/dL Hemoglobin A1c % (4.27-6.07) % Calcium 9.6 9.5 (8.5-10.3) mg/dL 06/12/21 06/12/21 06/12/21 Range/Units 07:31 05:12 05:12 WBC 7.5 (4.8-10.8) x10^3/uL RBC 4.88 (4.20-5.40) 10^6/uL Hgb 14.6 (12.0-16.0) g/dL Hct 43.9 (37.0-47.0) % MCV 90.0 (81.0-99.0) fL MCH 29.9 (27.0-31.0) pg MCHC 33.3 (32.0-36.0) g/dL RDW 12.2 (12.0-15.0) % Plt Count 272 (130-450) 10^3/uL MPV 10.3 (7.9-10.8) fL Neut # (Auto) 5.0 (1.5-6.6) 10^3/uL Lymph # (Auto) 1.5 (1.5-3.5) 10^3/uL Morton # (Auto) 1.0 (0.0-1.0) 10^3/uL Eos # (Auto) 0.1 (0.0-0.7) 10^3/uL Baso # (Auto) 0.0 (0.0-0.1) 10^3/uL Absolute Nucleated RBC 0.00 x10^3/uL Nucleated RBC % 0.0 /100WBC Sodium (135-145) mmol/L Potassium (3.5-5.0) mmol/L Chloride (101-111) mmol/L Carbon Dioxide (21-32) mmol/L Anion Gap (6-13) BUN (6-20) mg/dL Creatinine (0.4-1.0) mg/dL Estimated GFR (MDRD) (>89) Glucose (70-100) mg/dL POC Whole Bld Glucose 126 H (70 - 100) mg/dL Estimat Average Glucose 137 H (70-100) mg/dL Hemoglobin A1c % 6.4 H (4.27-6.07) % Calcium (8.5-10.3) mg/dL ABX Reporting Has patient been on IV antibiotics over the past 48 hours?: No Sepsis Event Note (H) - Evaluation Current Stage of Sepsis: Ruled out Assessment/Plan - Problem List (1) Acute hyponatremia Impression: Patient was admitted 2 days ago for a sodium of 113 due to psychogenic polydipsia. She overcorrected to 136 yesterday and was given d5 water and desmopressin. Her sodium today is 126 which is where we would like it to be in order to gradually increase it and avoid central pontine myelinolysis. As such, these interventions were discontinued today. 1.5 L fluid restriction. We will continue to closely monitor her BMP throughout the day. 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 She has had similar episodes in the past. She continues to ask for water, ice chips and juice (06/13). Plan to continue fluid restriction (1500 mL today). Nurse will monitor I/Os and help control her fluid intake. Plan for future outpatient management of her underlying psychiatric condition in order to prevent future episodes. (3) Altered mental status Impression: Resolved, back to baseline as of 06/12, confirmed by sister. Her speech is somewhat repetitive at baseline. Qualifiers: Altered mental status type: unspecified Qualified Code(s): R41.82 - Altered mental status, unspecified (4) Mood disorder Impression: Continue usual home meds during admission. (5) Controlled type 2 diabetes mellitus without complication, without long-term current use of insulin Impression: Most recent A1c 6.4 during admission. Managed with diet. Will continue to monitor blood sugar. during admission, sliding insulin scale as needed.
[2021-06-13] MEDS: risperiDONE 1 MG TABLET PO SCH ×2 (08:14→21:10)
[2021-06-13] MEDS: GABAPENTIN 100 MG CAPSULE PO SCH ×2 (08:15→21:10)
[2021-06-13] MEDS: INSULIN ASPART 300 UNIT/3 ML PEN SUBQ SCH ×4 (08:17→21:10)
[2021-06-13] MEDS: VENLAFAXINE 37.5 MG TABLET PO SCH (08:55)
[2021-06-13] MEDS ORDERED: VENLAFAXINE ER 75 MG CAPSULE PO SCH (09:00)
[2021-06-13 10:35] LABS: CALCIUM 8.8 mg/dL (8.5-10.3); CREATININE 0.7 mg/dL (0.4-1.0); POTASSIUM 3.9 mmol/L (3.5-5.0)
[2021-06-13 16:30] LABS: CALCIUM 9.5 mg/dL (8.5-10.3); CREATININE 0.7 mg/dL (0.4-1.0); POTASSIUM 4.3 mmol/L (3.5-5.0)
[2021-06-13] MEDS: NALTREXONE HCL 50 MG PO SCH (17:58)
[2021-06-13] MEDS: NICOTINE 14 MG PATCH TOP SCH (21:00)
[2021-06-13 22:20] LABS: CREATININE 0.8 mg/dL (0.4-1.0); POTASSIUM 4.2 mmol/L (3.5-5.0)
[2021-06-14 05:20] LABS: CALCIUM 9.6 mg/dL (8.5-10.3); CREATININE 0.7 mg/dL (0.4-1.0); POTASSIUM 4.4 mmol/L (3.5-5.0)
[2021-06-14] MEDS: SODIUM CHLORIDE FLUSH 0.9% 10 ML SYRINGE IVP SCH ×2 (05:57→13:59)
--- NOTE | 2021-06-14 07:48 | Discharge Plan ---
Discharge Plan Problem Reviewed?: Yes Disposition: Home, Self Care Condition: Stable Diet: Regular Activity Restrictions: Activity as Tolerated Health Concerns: You were admitted to the hospital because of low sodium and this occurred due to your excessive water consumption. When you consume too much water you do not need quickly, the sodium in your body decreases and this can cause confusion or seizures. We need to prevent further episodes of this by limiting your water intake. Plan of Treatment: Please continue to take your medications as previously prescribed and to follow- up with your psychologist. It is important to limit your overall water intake to 2.5 L in 1 day. This should be consumed throughout the day. Please refrain from consuming large am ounts of water (3 to 4 L) at a time as this will cause your sodium to suddenly decrease. Care Goals: The goal is to prevent further episodes of low sodium. Additional Instructions or Follow Up instructions: Please follow-up with your primary care physician in 1 week as they can recheck labs to ensure your sodium is stable. No Smoking: If you smoke, Please STOP! Call for help. Follow-up with: Rina Nix ARNP [Primary Care Provider] -
--- NOTE | 2021-06-14 07:48 | DISCHARGE SUMMARY ---
Discharge Summary Admit Date: 06/11/21 Discharge Date: 06/14/21 Discharging Provider: Hosea Bird Primary Care Provider: Rina Nix Code Status: Attempt Resuscitation Condition at Discharge: Stable Discharge Disposition: 01 Home, Self Care - DIAGNOSES Admission Diagnoses: Acute hyponatremia Psychogenic polydipsia Altered mental status Neurodegenerative cognitive impairment Anxiety disorder Obsessive-compulsive disorder Schizophrenia Bipolar disorder Controlled type 2 diabetes mellitus without complication Discharge Diagnoses with Status of Each Condition: Acute hyponatremia - resolved. Psychogenic polydipsia - resolved. Altered mental status - resolved. Mood disorder - stable. Controlled type diabetes mellitus 2 without complication - stable. - HPI History of Present Illness: 46 year old female with a history of psychiatric issues presents to the ED with her sister for evaluation of altered mental status. The longterm called her sister today reporting that she was acting "drunk." They reported that she was locking herself in the bathroom and taking multiple showers a day so that she could drink excess amounts of water. Her sister also brought her to the dentist today and noticed that she was drinking excessive amounts of water and seemed more altered than usual. 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 She spent 1 month at [facility] and her sister reports that she came out "almost normal." However, she tends to deteriorate every time she visits her mother and was with her mother for the first time in 2 months 2 days ago (06/09). In the ED she is afebrile, heart rate 115, blood pressure 164/92, respirations 17 and O2 saturation 97% on RA. Elevated WBC 16.6. Sodium 113 in ED. Given 30 cc hypertonic saline over 2 hours and Ativan. She is alert and oriented but speech is repetitive, asking for water over and over. She knows where she is and that she has been admitted for low sodium but unable to answer further questions. Flat affect. Able to follow commands. No seizures noted in ED. She has an appointment with a psychologist tomorrow to adjust her medications, plan to do the visit inpatient. Her sister reports that naltrexone has helped in the past. - CONSULTS | PROCEDURES Consultations: Social Work - HOSPITAL COURSE Hospital Course: She was admitted to the ICU for acute hyponatremia secondary to psychogenic polydipsia. Given she initially quite altered, she was given hypertonic saline at 15 mL an hour for 2 hours. Her sodium rapidly corrected over the first 12 hours from 113 to 136. Although she was likely at low risk for osmotic dimension syndrome, given her rapid correction, we gave her D5 water and desmopressin. This brought her sodium down to 126 over the next 24 hours and we discontinued free water and her sodium gradually increased over the next 24 hours back to 136. We have instructed her on discharge to avoid large amounts of water consumption at a time to event further episodes of hyponatremia. This is now her third admission for hyponatremia due to psychogenic polydipsia. We have instructed her to consume around 2.5 L of water throughout the day. She will also be following up with her psychologist to adjust her medications for her mood disorder/bipolar disorder. During this hospitalization, she made multiple requests for water or Gatorade. She also requested to take multiple showers as she can consume free water while showering. We limited her free water intake throughout this hospitalization. She is discharged in stable condition. - ALLERGIES Allergies/Adverse Reactions: Allergies Allergy/AdvReac Type Severity Reaction Status Date / Time latex AdvReac Itching Verified 11/02/20 19:56 - MEDICATIONS Home Medications: Ambulatory Orders Medication Instructions Recorded Confirmed risperiDONE [Risperdal] 3 mg PO BID 11/03/20 06/11/21 Gabapentin [Neurontin] 100 mg PO BID 06/11/21 06/11/21 Naltrexone HCl 50 mg PO DAILY 06/11/21 06/11/21 Venlafaxine [Effexor] 100 mg PO DAILY 06/13/21 06/13/21 - PHYSICAL EXAM AT DISCHARGE General Appearance: positive: No acute distress, Alert Eyes Bilateral: positive: Normal inspection, Conjunctivae nml ENT: positive: ENT inspection nml Neck: positive: Nml inspection Respiratory: positive: No respiratory distress. negative: Wheezes, Rales Cardiovascular: positive: Regular rate & rhythm, No murmur. negative: Tachycardia Abdomen: positive: Non-tender, No distention. negative: Tenderness Skin: positive: Warm, Dry Extremities: positive: No pedal edema Neurologic/Psychiatric: negative: Disoriented to person, Disoriented to place Physical Exam Other/Comments: Vital Signs - 24 hr 06/13/21 06/14/21 06/14/21 21:00 01:00 05:00 Temperature 36.9 C 37.0 C Heart Rate [ 73 91 75 Monitoring electrodes] Respiratory 15 15 14 Rate Blood Pressure 94/57 L 102/52 L 113/68 [Right Brachial artery] O2 Saturation 96 95 06/14/21 06/14/21 06/14/21 08:16 12:08 13:50 Temperature 36.9 C 37 C 36.9 C Heart Rate [ 102 H 112 H 118 H Monitoring electrodes] Respiratory 16 15 20 Rate Blood Pressure 133/73 H 130/86 H 124/75 [Right Brachial artery] O2 Saturation 94 95 98 Oxygen O2 Source Room air - LABS Result Diagrams: 06/12/21 05:12 06/14/21 04:59 - DIAGNOSTIC IMAGING Diagnostic Imaging Results: Final report reviewed - SEPSIS Current Stage of Sepsis: Ruled out - FOLLOW UP Follow Up: She will need follow-up with her primary physician in 1 week to ensure her BNP is stable. She also need follow-up with her psychologist. - TIME SPENT Time Spent in Discharge (Minutes): 34
--- NOTE | 2021-06-14 07:51 | PROVIDER PROGRESS NOTE ---
Subjective - Prog Note Date Prog Note Date: 06/14/21 - Subjective Pt reports feeling: Improved Current Medications - Current Medications Current Medications: Active Medications Acetaminophen (Acetaminophen 325 Mg Tablet) 650 mg PO Q4HR PRN PRN Reason: Pain 1 to 4 Gabapentin (Gabapentin 100 Mg Capsule) 100 mg PO BID [facility] Last Admin: 06/13/21 21:10 Dose: 100 mg Insulin Aspart (Insulin Aspart 300 Unit/3 Ml Pen) 1 - 5 unit SUBQ 0800,1200,1700,2100 [facility]; Protocol Last Admin: 06/13/21 21:10 Dose: Not Given Nicotine (Nicotine 14 Mg Patch) 1 patch TOP DAILY [facility] Last Admin: 06/13/21 21:00 Dose: 1 patch Ondansetron HCl (Ondansetron Odt 4 Mg Tablet) 4 mg TL Q6HR PRN PRN Reason: Nausea / Vomiting Last Admin: 06/13/21 08:14 Dose: 4 mg Ondansetron HCl (Ondansetron 4 Mg/2 Ml Vial) 4 mg IVP Q6HR PRN PRN Reason: Nausea / Vomiting Oxycodone HCl (Oxycodone 5 Mg Tablet) 5 mg PO Q4HR PRN PRN Reason: Pain 5 to 7 Patient Own Med ( Naltrexone Hcl 50 Mg Tablet) 1 each PO DAILY [facility] Last Admin: 06/13/21 17:58 Dose: Not Given Risperidone (Risperidone 1 Mg Tablet) 3 mg PO BID [facility] Last Admin: 06/13/21 21:10 Dose: Not Given Sodium Chloride (Sodium Chloride Flush 0.9% 10 Ml Syringe) 10 ml IVP PRN PRN PRN Reason: NEEDED PER PROVIDER ORDERS Last Admin: 06/12/21 05:41 Dose: 10 ml Sodium Chloride (Sodium Chloride Flush 0.9% 10 Ml Syringe) 10 ml IVP 0100,0900,1700 [facility] Last Admin: 06/14/21 05:57 Dose: 10 ml Venlafaxine HCl (Venlafaxine 37.5 Mg Tablet) 93.75 mg PO DAILY [facility] Last Admin: 06/13/21 08:55 Dose: 93.75 mg risperiDONE [Risperdal] 3 mg PO BID 11/03/20 Gabapentin [Neurontin] 100 mg PO BID 06/11/21 Naltrexone HCl 50 mg PO DAILY 06/11/21 Venlafaxine [Effexor] 100 mg PO DAILY 06/13/21 Objective - Vital Signs/Intake & Output Vital Signs: Vital Signs x48h Temp Pulse Resp BP Pulse Ox 06/14/21 05:00 37.0 C 75 14 113/68 95 06/14/21 01:00 91 15 102/52 L Intake & Output: Intake & Output 06/11/21 06/12/21 06/13/21 06/14/21 23:59 23:59 23:59 23:59 Intake Total 330 3537.0 2150 250 Output Total 1750 2900 3950 475 Balance -1420 637.0 -1800 -225 - Lab Results Fish Bones: 06/12/21 05:12 06/14/21 04:59 Other Labs: Lab Results x24hrs 06/14/21 06/14/21 06/13/21 Range/Units 07:34 04:59 22:04 Sodium 136 134 L (135-145) mmol/L Potassium 4.4 4.2 (3.5-5.0) mmol/L Chloride 100 L 96 L (101-111) mmol/L Carbon Dioxide 29 31 (21-32) mmol/L Anion Gap 7.0 7.0 (6-13) BUN 11 12 (6-20) mg/dL Creatinine 0.7 0.8 (0.4-1.0) mg/dL Estimated GFR (MDRD) 89 77 L (>89) Glucose 116 H 128 H (70-100) mg/dL POC Whole Bld Glucose 121 H (70 - 100) mg/dL Calcium 9.6 9.0 (8.5-10.3) mg/dL 06/13/21 06/13/21 06/13/21 Range/Units 20:39 16:57 16:13 Sodium 134 L (135-145) mmol/L Potassium 4.3 (3.5-5.0) mmol/L Chloride 98 L (101-111) mmol/L Carbon Dioxide 28 (21-32) mmol/L Anion Gap 8.0 (6-13) BUN 10 (6-20) mg/dL Creatinine 0.7 (0.4-1.0) mg/dL Estimated GFR (MDRD) 89 (>89) Glucose 131 H (70-100) mg/dL POC Whole Bld Glucose 142 H 135 H (70 - 100) mg/dL Calcium 9.5 (8.5-10.3) mg/dL 06/13/21 06/13/21 Range/Units 11:33 10:20 Sodium 128 L (135-145) mmol/L Potassium 3.9 (3.5-5.0) mmol/L Chloride 93 L (101-111) mmol/L Carbon Dioxide 27 (21-32) mmol/L Anion Gap 8.0 (6-13) BUN 9 (6-20) mg/dL Creatinine 0.7 (0.4-1.0) mg/dL Estimated GFR (MDRD) 89 (>89) Glucose 158 H (70-100) mg/dL POC Whole Bld Glucose 128 H (70 - 100) mg/dL Calcium 8.8 (8.5-10.3) mg/dL ABX Reporting Has patient been on IV antibiotics over the past 48 hours?: No Sepsis Event Note (H) - Evaluation Current Stage of Sepsis: Ruled out Assessment/Plan - Problem List (1) Acute hyponatremia Impression: This was due to psychogenic polydipsia. Resolved today (06/14). Sodium is 136 this morning after a gradual increase over the last 24 hours. Plan for discharge to adult family home today. Continue fluid restriction 2-2.5 L upon discharge. (3) Altered mental status Impression: Resolved per sister. Her speech is repetitive at baseline. Qualifiers: Altered mental status type: unspecified Qualified Code(s): R41.82 - Altered mental status, unspecified (4) Mood disorder Impression: Continue usual home medications upon discharge. (5) Controlled type 2 diabetes mellitus without complication, without long-term current use of insulin Impression: Last A1c 6.4, managed with diet. Follow up with PCP for further monitoring upon discharge.
[2021-06-14] MEDS: GABAPENTIN 100 MG CAPSULE PO SCH (08:05)
[2021-06-14] MEDS: risperiDONE 1 MG TABLET PO SCH (08:05)
[2021-06-14] MEDS: VENLAFAXINE 37.5 MG TABLET PO SCH (08:06)
[2021-06-14] MEDS: NICOTINE 14 MG PATCH TOP SCH (08:07)
[2021-06-14 13:43] LABS: B. PARAPERTUSSIS- RESP PCR PAN NOT DETECTED; B. PERTUSSIS- RESP PCR PANEL NOT DETECTED; C. PNEUMONIAE- RESP PCR PANEL NOT DETECTED; CORONAVIRUS 229E-RESP PCR NOT DETECTED; CORONAVIRUS HKU1-RESP PCR NOT DETECTED; CORONAVIRUS NL63-RESP PCR NOT DETECTED; CORONAVIRUS OC43-RESP PCR NOT DETECTED; HUMAN METAPNEUMOVIRUS NOT DETECTED; INFLUENZA A- RESP PCR PANEL NOT DETECTED; INFLUENZA B - RESP PCR PANEL NOT DETECTED; M. PNEUMONIAE- RESP PCR PANEL NOT DETECTED; PARAINFLUENZA VIRUS 1 NOT DETECTED; PARAINFLUENZA VIRUS 2 NOT DETECTED; PARAINFLUENZA VIRUS 3 NOT DETECTED; PARAINFLUENZA VIRUS 4 NOT DETECTED; RHINOVIRUS/ENTEROVIRUS NOT DETECTED; RSV- RESP PCR PANEL NOT DETECTED; SARS-CoV-2 -RESP PCR PANEL NOT DETECTED
[2021-06-14] MEDS: INSULIN ASPART 300 UNIT/3 ML PEN SUBQ SCH ×2 (13:59→14:00)
[2021-06-14] MEDS: NALTREXONE HCL 50 MG PO SCH (13:59)
[2021-06-14 14:37] VITALS: BP 124/75
== END 2021-06-14 14:08 | disposition home or self-care (01) | DRG 641 ==
LOC: ED 17:58 → ICU 20:19
PROVIDERS: ADMIT Specialist; ATTEND Internal Medicine
DX: E87.1 Hypo-osmolality and hyponatremia (principal); F20.9 Schizophrenia, unspecified; F31.9 Bipolar disorder, unspecified; F41.9 Anxiety disorder, unspecified; F42.9 Obsessive-compulsive disorder, unspecified; R41.82 Altered mental status, unspecified; Z32.02 Encounter for pregnancy test, result negative; R63.1 Polydipsia; E11.9 Type 2 diabetes mellitus without complications; I48.91 Unspecified atrial fibrillation; G89.29 Other chronic pain; M54.9 Dorsalgia, unspecified; Z90.49 Acquired absence of other specified parts of digestive tract; Z20.822 Contact with and (suspected) exposure to COVID-19; Z80.3 Family history of malignant neoplasm of breast; Z81.1 Family history of alcohol abuse and dependence; Z81.8 Family history of other mental and behavioral disorders; Z82.49 Family history of ischemic heart disease and other diseases of the circulatory system; Z87.891 Personal history of nicotine dependence
CPT/HCPCS: 36415; 80048; 80053; 80306; 81001; 81025; 83036; 83690; 85025; 87150; 87631; 93005; 96361; 96374; 99281; 99285; A9270; G0480; J2060; Q0162; 0202U; 80320; 81003; 87086

== ENCOUNTER 2021-06-25 12:36 | Outpatient (CLI) | payer MEDICARE, MEDICAID ==
[2021-06-25 13:17] LABS: BASOPHILS % (AUTO) 0.2 %; EOSINOPHILS # (AUTO) 0.1 10^3/uL (0.0-0.7); EOSINOPHILS % (AUTO) 0.5 %; HCT - HEMATOCRIT 42.4 % (37.0-47.0); HGB - HEMOGLOBIN 14.2 g/dL (12.0-16.0); LYMPHOCYTES # (AUTO) 1.3 10^3/uL (1.5-3.5); LYMPHOCYTES % (AUTO) 10.5 %; MEAN CORPUSCULAR HEMOGLOBIN 31.1 pg (27.0-31.0); MEAN CORPUSCULAR HGB CONC 33.5 g/dL (32.0-36.0); MEAN CORPUSCULAR VOLUME 92.8 fL (81.0-99.0); MEAN PLATELET VOLUME 9.1 fL (7.9-10.8); MONOCYTES # (AUTO) 0.7 10^3/uL (0.0-1.0); MONOCYTES % (AUTO) 5.4 %; NEUTROPHILS # (AUTO) 10.4 10^3/uL (1.5-6.6); PLT - PLATELET COUNT 289 10^3/uL (130-450); RED BLOOD COUNT 4.57 10^6/uL (4.20-5.40); RED CELL DISTRIBUTION WIDTH 12.9 % (12.0-15.0); WHITE BLOOD COUNT 12.5 x10^3/uL (4.8-10.8)
[2021-06-25 14:04] LABS: ALBUMIN 4.4 g/dL (3.2-5.5); ALBUMIN/GLOBULIN RATIO 1.6 (1.0-2.2); BILIRUBIN,TOTAL 0.5 mg/dL (0.2-1.0); CALCIUM 9.9 mg/dL (8.5-10.3); CREATININE 0.7 mg/dL (0.4-1.0); TOTAL PROTEIN 7.2 g/dL (6.7-8.2)
== END 2021-06-25 12:37 | disposition home or self-care (01) ==
LOC: LAB 12:36
PROVIDERS: ATTEND Physician Assistant
DX: E87.1 Hypo-osmolality and hyponatremia (principal); F50.89 Other specified eating disorder
CPT/HCPCS: 36415; 80053; 82728; 83540; 84466; 84630; 85025

== ENCOUNTER 2021-09-24 10:04 | Emergency (ER) | payer MEDICARE, MEDICAID ==
[2021-09-24 11:05] LABS: BASOPHILS % (AUTO) 0.3 %; EOSINOPHILS # (AUTO) 0.1 10^3/uL (0.0-0.7); EOSINOPHILS % (AUTO) 0.5 %; HCT - HEMATOCRIT 43.9 % (37.0-47.0); HGB - HEMOGLOBIN 14.6 g/dL (12.0-16.0); LYMPHOCYTES # (AUTO) 1.2 10^3/uL (1.5-3.5); LYMPHOCYTES % (AUTO) 13.2 %; MEAN CORPUSCULAR HEMOGLOBIN 30.8 pg (27.0-31.0); MEAN CORPUSCULAR HGB CONC 33.3 g/dL (32.0-36.0); MEAN CORPUSCULAR VOLUME 92.6 fL (81.0-99.0); MEAN PLATELET VOLUME 9.2 fL (7.9-10.8); MONOCYTES # (AUTO) 0.7 10^3/uL (0.0-1.0); MONOCYTES % (AUTO) 7.1 %; NEUTROPHILS # (AUTO) 7.2 10^3/uL (1.5-6.6); NEUTROPHILS % (AUTO) 78.6 %; PLT - PLATELET COUNT 259 10^3/uL (130-450); RED BLOOD COUNT 4.74 10^6/uL (4.20-5.40); RED CELL DISTRIBUTION WIDTH 11.7 % (12.0-15.0); WHITE BLOOD COUNT 9.1 x10^3/uL (4.8-10.8)
[2021-09-24 11:18] LABS: ALBUMIN 4.7 g/dL (3.2-5.5); ALBUMIN/GLOBULIN RATIO 1.6 (1.0-2.2); BILIRUBIN,TOTAL 0.5 mg/dL (0.2-1.0); CALCIUM 9.7 mg/dL (8.5-10.3); CREATININE 0.7 mg/dL (0.4-1.0); POTASSIUM 4.1 mmol/L (3.5-5.0); TOTAL PROTEIN 7.6 g/dL (6.7-8.2)
[2021-09-24 12:14] LABS: BILIRUBIN,URINE NEGATIVE (NEGATIVE); GLUCOSE, URINE (UA) NEGATIVE (NEGATIVE); KETONES,URINE (UA) NEGATIVE (NEGATIVE); LEUKOCYTE ESTERASE, URINE NEGATIVE (NEGATIVE); NITRITE,URINE NEGATIVE (NEGATIVE); OCCULT BLOOD,URINE TRACE-INTA (NEGATIVE); PROTEIN,URINE NEGATIVE (NEGATIVE); UROBILINOGEN,URINE 0.2 (NORMAL) E.U./dL (NORMAL)
[2021-09-24 12:18] LABS: CLARITY,URINE CLEAR (CLEAR); HCG UR QUAL NEGATIVE; MUDS CUTOFF CONCENTRATIONS CUTOFF CONC BELOW:
[2021-09-24 12:33] LABS: AMPHETAMINE SCREEN,URINE NEGATIVE (NEGATIVE); BARBITURATE SCREEN,UR NEGATIVE (NEGATIVE); BENZODIAZEPINES SCREEN, URINE NEGATIVE (NEGATIVE); COCAINE SCREEN URINE NEGATIVE (NEGATIVE); METHADONE SCREEN, URINE NEGATIVE (NEGATIVE); METHAMPHETAMINES SCREEN, URINE NEGATIVE (NEGATIVE); OPIATE SCREEN, URINE NEGATIVE (NEGATIVE); OXYCODONE SCREEN, URINE POSITIVE (NEGATIVE); PROPOXYPHENE SCREEN, URINE NEGATIVE (NEGATIVE); THC CANNABINOID SCREEN, URINE NEGATIVE (NEGATIVE); TRICYCLIC ANTIDEPRESSANT,URINE NEGATIVE (NEGATIVE)
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
[2021-09-24 19:27] VITALS: BP 133/72
--- NOTE | 2021-09-24 20:59 | ED Physician Documentation ---
ED Addendum - Addendum Addendum: 09/24/21 20:57 Patient was seen by DCR, no criteria for involuntary hold at this time. Patient will be returned back home to her adult family home. This document was made in part using voice recognition software. While efforts are made to proofread this document, sound alike and grammatical errors may occur. Departure - Departure Disposition: 01 Home, Self Care Clinical Impression: Psychogenic polydipsia, Neurodegenerative cognitive impairment Condition: Good Instructions: ED Psychosis Follow-Up: Rina Nix ARNP [Primary Care Provider] - Within 1 week Comments: Patient may use extra-large pull-up briefs. Please have extra monitoring while the patient is toileting and showering. Please follow-up with her doctor for further care and to discuss placement with higher level of care.
== END 2021-09-24 21:10 | disposition home or self-care (01) ==
LOC: ED 10:04
DX: R63.1 Polydipsia (principal); G31.9 Degenerative disease of nervous system, unspecified; E11.9 Type 2 diabetes mellitus without complications; Z20.822 Contact with and (suspected) exposure to COVID-19
CPT/HCPCS: 36415; 80053; 80306; 81003; 81025; 83690; 85025; 87635; 99283; G0480; 80320; 81001; 87086

== ENCOUNTER 2022-06-25 09:53 | Emergency (ER) | payer MEDICARE, MEDICAID ==
[2022-06-25 11:17] LABS: BASOPHILS % (AUTO) 0.2 %; EOSINOPHILS # (AUTO) 0.1 10^3/uL (0.0-0.7); EOSINOPHILS % (AUTO) 0.8 %; HGB - HEMOGLOBIN 13.4 g/dL (12.0-16.0); LYMPHOCYTES # (AUTO) 1.8 10^3/uL (1.5-3.5); LYMPHOCYTES % (AUTO) 19.7 %; MEAN CORPUSCULAR HEMOGLOBIN 29.4 pg (27.0-31.0); MEAN CORPUSCULAR HGB CONC 31.9 g/dL (32.0-36.0); MEAN CORPUSCULAR VOLUME 92.1 fL (81.0-99.0); MEAN PLATELET VOLUME 9.2 fL (7.9-10.8); MONOCYTES # (AUTO) 0.6 10^3/uL (0.0-1.0); MONOCYTES % (AUTO) 6.9 %; NEUTROPHILS # (AUTO) 6.6 10^3/uL (1.5-6.6); NEUTROPHILS % (AUTO) 72.1 %; PLT - PLATELET COUNT 267 10^3/uL (130-450); RED BLOOD COUNT 4.56 10^6/uL (4.20-5.40); RED CELL DISTRIBUTION WIDTH 12.7 % (12.0-15.0); WHITE BLOOD COUNT 9.1 x10^3/uL (4.8-10.8)
[2022-06-25 11:31] LABS: ACETAMINOPHEN < 10 ug/mL (10-30); ALBUMIN 4.4 g/dL (3.2-5.5); ALBUMIN/GLOBULIN RATIO 1.3 (1.0-2.2); ALKALINE PHOSPHATASE 50 IU/L (42-121); ALT ALANINE AMINOTRANSFERASE 17 IU/L (10-60); AST ASPARTATE AMINOTRANSFERASE 15 IU/L (10-42); BILIRUBIN,TOTAL 0.3 mg/dL (0.2-1.0); BUN - BLOOD UREA NITROGEN 9 mg/dL (6-20); CALCIUM 9.8 mg/dL (8.5-10.3); CARBON DIOXIDE - CO2 29 mmol/L (21-32); CHLORIDE 102 mmol/L (101-111); CREATININE 0.7 mg/dL (0.4-1.0); ETOH - ETHANOL < 5.0 mg/dL; GFR - MDRD 89 (>89); GLUCOSE 97 mg/dL (70-100); LIPASE 26 U/L (22-51); POTASSIUM 4.4 mmol/L (3.5-5.0); SALICYLATE < 6.0 mg/dL; SODIUM 138 mmol/L (135-145); TOTAL PROTEIN 7.7 g/dL (6.7-8.2)
[2022-06-25 11:32] LABS: MUDS CUTOFF CONCENTRATIONS CUTOFF CONC BELOW:
--- NOTE | 2022-06-25 11:34 | ED Physician Documentation ---
History of Present Illness - Stated complaint Stated Complaint: ANXIETY/HIGH HEART RATE - Chief complaint Chief Complaint: Cardiac - Additonal information Additional information: 47-year-old female who has a history of previous psychiatric issues presents to the emergency department from the [facility] for concerns of a mildly elevated blood pressure as well as mildly elevated heart rate. Jolanta, the adult [facility] [employer] inspector reports that they feel her behavior has been different than her typical baseline. The patient reports to me that she feels fine. She states that they always give her her medications as they should. She denies excessive oral fluid intake. She has historically been admitted to this hospital for psychogenic polydipsia. On presentation the patient is alert and oriented to person place time and circu mstances. She denies chest pain shortness of air. There are no focal deficits. I do note a blood pressure of 141/79 and mild tachycardia with a heart rate of 110. Much of the history is obtained from both the [facility] provider, review of previous chart admissions as well as the patient Review of Systems Constitutional: denies: Fever, Chills Cardiac: reports: Reviewed and negative Respiratory: reports: Reviewed and negative GI: reports: Reviewed and negative : reports: Reviewed and negative Skin: reports: Reviewed and negative Musculoskeletal: reports: Reviewed and negative Neurologic: reports: Reviewed and negative Psychiatric: reports: Reviewed and negative PD PAST MEDICAL HISTORY - Past Medical History Cardiovascular: Atrial fibrillation Respiratory: None Neuro: None Endocrine/Autoimmune: Type 2 diabetes 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 HEENT: None Psych: Depression, Anxiety, Bipolar disorder, Schizophrenia, Obsessive compulsive disorder, Other Musculoskeletal: None, Chronic back pain Derm: None - Past Surgical History Past Surgical History: Yes General: Cholecystectomy HEENT: Tonsil/Adenoidectomy - Present Medications Home Medications: Ambulatory Orders Medication Instructions Recorded Confirmed risperiDONE [Risperdal] 3 mg PO BID 11/03/20 06/11/21 Gabapentin [Neurontin] 100 mg PO BID 06/11/21 06/11/21 Naltrexone HCl 50 mg PO DAILY 06/11/21 06/11/21 Venlafaxine [Effexor] 100 mg PO DAILY 06/13/21 06/13/21 - Allergies Allergies/Adverse Reactions: Allergies Allergy/AdvReac Type Severity Reaction Status Date / Time latex AdvReac Itching Verified 06/25/22 10:04 - Social History Does the pt smoke?: No Smoking Status: Never smoker Does the pt drink ETOH?: Yes Does the pt have substance abuse?: No - Immunizations Immunizations are current?: Yes - POLST Patient has POLST: No POLST Status: Full Code PD ED PE NORMAL - General General: Alert and oriented X 3, No acute distress, Well developed/nourished - HEENT HEENT: Atraumatic, PERRL, Moist mucous membranes, Pharynx benign - Neck Neck: Supple, no meningeal sign, No adenopathy - Cardiac Cardiac: RRR (Mild tachycardia with heart rate of 105 on monitor.), No murmur - Respiratory Respiratory: No respiratory distress, Clear bilaterally - Abdomen Abdomen: Normal bowel sounds, Soft, Non tender - Back Back: No CVA TTP - Derm Derm: Normal color - Extremities Extremities: No deformity, No tenderness to palpate, Normal ROM s pain - Neuro Neuro: Alert and oriented X 3, test administrator 2-12 intact, No motor deficit, No sensory deficit, Normal speech Eye Opening: Spontaneous Motor: Obeys Commands Verbal: Oriented GCS Score: 15 Results - Vitals Vitals: Vital Signs - 24 hr 06/25/22 06/25/22 09:59 11:53 Temperature 37.0 C 36.8 C Heart Rate 112 H 96 Respiratory 16 16 Rate Blood Pressure 141/79 H 133/77 H O2 Saturation 95 96 Oxygen O2 Source Room air - EKG (time done) 1104 Rate: Rate (enter#) (90) Rhythm: NSR [place]: Normal Intervals: Normal [place]. No: Prolonged QT QRS: Low voltage Ischemia: Normal ST segments Compare to prior EKG: Unchanged from prior EKG Computer interpretation: Agree with computer - Labs Labs: Laboratory Tests 06/25/22 06/25/22 06/25/22 11:09 11:09 11:09 WBC 9.1 RBC 4.56 Hgb 13.4 Hct 42.0 MCV 92.1 MCH 29.4 MCHC 31.9 L RDW 12.7 Plt Count 267 MPV 9.2 Neut # (Auto) 6.6 Lymph # (Auto) 1.8 [place] # (Auto) 0.6 Eos # (Auto) 0.1 Baso # (Auto) 0.0 Absolute Nucleated RBC 0.00 Nucleated RBC % 0.0 Sodium 138 Potassium 4.4 Chloride 102 Carbon Dioxide 29 Anion Gap 7.0 BUN 9 Creatinine 0.7 Estimated GFR (MDRD) 89 Glucose 97 Calcium 9.8 Total Bilirubin 0.3 AST 15 ALT 17 Alkaline Phosphatase 50 Total Protein 7.7 Albumin 4.4 Globulin 3.3 Albumin/Globulin Ratio 1.3 Lipase 26 TSH 0.65 Urine Color Urine Clarity Urine pH Ur Specific [place] Urine Protein Urine Glucose (UA) Urine Ketones Urine Occult Blood Urine Nitrite Urine Bilirubin Urine Urobilinogen Ur Leukocyte Esterase Ur Microscopic Review Urine Culture Comments Urine HCG, Qual Salicylates < 6.0 Urine Opiates Screen Ur Oxycodone Screen Urine Methadone Screen Ur Propoxyphene Screen Acetaminophen < 10 L Ur Barbiturates Screen Ur Tricyclics Screen Ur Phencyclidine Scrn Ur Amphetamine Screen U Methamphetamines Scrn U Benzodiazepines Scrn Urine Cocaine Screen U Cannabinoids Screen Ethyl Alcohol < 5.0 06/25/22 11:26 WBC RBC Hgb Hct MCV MCH MCHC RDW Plt Count MPV Neut # (Auto) Lymph # (Auto) [place] # (Auto) Eos # (Auto) Baso # (Auto) Absolute Nucleated RBC Nucleated RBC % Sodium Potassium Chloride Carbon Dioxide Anion Gap BUN Creatinine Estimated GFR (MDRD) Glucose Calcium Total Bilirubin AST ALT Alkaline Phosphatase Total Protein Albumin Globulin Albumin/Globulin Ratio Lipase TSH Urine Color LIGHT YELLOW Urine Clarity CLEAR Urine pH 6.5 Ur Specific [place] 1.010 Urine Protein NEGATIVE Urine Glucose (UA) NEGATIVE Urine Ketones NEGATIVE Urine Occult Blood TRACE-LYSE Urine Nitrite NEGATIVE Urine Bilirubin NEGATIVE Urine Urobilinogen 0.2 (NORMAL) Ur Leukocyte Esterase NEGATIVE Ur Microscopic Review NOT INDICATED Urine Culture Comments NOT INDICATED Urine HCG, Qual NEGATIVE Salicylates Urine Opiates Screen NEGATIVE Ur Oxycodone Screen POSITIVE H Urine Methadone Screen NEGATIVE Ur Propoxyphene Screen NEGATIVE Acetaminophen Ur Barbiturates Screen NEGATIVE Ur Tricyclics Screen NEGATIVE Ur Phencyclidine Scrn NEGATIVE Ur Amphetamine Screen NEGATIVE U Methamphetamines Scrn NEGATIVE U Benzodiazepines Scrn NEGATIVE Urine Cocaine Screen NEGATIVE U Cannabinoids Screen NEGATIVE Ethyl Alcohol PD Medical Decision Making - ED course Complexity details: reviewed results, re-evaluated patient, d/w patient, other ([facility] care provider) ED course: 47-year-old female was sent to the emergency department from her adult family home for concerns that she is behaving differently and has a mildly elevated heart rate and blood pressure. She does have a history of psychiatric issues that have included psychogenic polydipsia in the past. Here in the emergency department the patient's neurological and clinical exam was benign. Patient denies any current complaints and appears to behaving normally. I do note that with ambulation she has a mildly elevated heart rate to 105 but at rest it is in the 90s. Her blood pressure is also mildly elevated 150s over 80s. Clinically with the absence of chest pain or shortness of air no further work-up is indicated of this today. She is advised close follow-up with her PCP to determine if she needs longer-term management of her blood pressure. We did obtain a CBC, electrolytes urine drug screen, Tylenol alcohol and salicylates which were all negative, with the exception of oxycodone. At this time no emergent worrisome conditions were found and she is discharged back to the adult family home in stable condition Departure - Departure Disposition: 01 Home, Self Care Clinical Impression: Encounter for medical screening examination Condition: Stable Record reviewed to determine appropriate education?: Yes Comments: [place] was sent to the emergency department because there were concerns that her blood pressure was mildly elevated as well as mildly elevated heart rate. Here in the emergency department we did obtain a CBC, electrolytes urine drug screen that were all normal. Her clinical exam is also unremarkable. She does have a mildly elevated blood pressure. At this time I would recommend she follow closely with a primary care provider to determine if this is something that needs to be treated in the long-term, however initiating treatment through the emergency department today is not indicated. Discharge Date/Time: 06/25/22 12:15
[2022-06-25 11:45] LABS: HCG UR QUAL NEGATIVE
[2022-06-25 11:48] LABS: BILIRUBIN,URINE NEGATIVE (NEGATIVE); GLUCOSE, URINE (UA) NEGATIVE (NEGATIVE); KETONES,URINE (UA) NEGATIVE (NEGATIVE); LEUKOCYTE ESTERASE, URINE NEGATIVE (NEGATIVE); NITRITE,URINE NEGATIVE (NEGATIVE); OCCULT BLOOD,URINE TRACE-LYSE (NEGATIVE); PH,URINE 6.5 PH (5.0-7.5); PROTEIN,URINE NEGATIVE (NEGATIVE); UROBILINOGEN,URINE 0.2 (NORMAL) E.U./dL (NORMAL)
[2022-06-25 11:51] LABS: CLARITY,URINE CLEAR (CLEAR)
[2022-06-25 11:53] VITALS: BP 133/77
[2022-06-25 12:07] LABS: AMPHETAMINE SCREEN,URINE NEGATIVE (NEGATIVE); BARBITURATE SCREEN,UR NEGATIVE (NEGATIVE); BENZODIAZEPINES SCREEN, URINE NEGATIVE (NEGATIVE); COCAINE SCREEN URINE NEGATIVE (NEGATIVE); METHADONE SCREEN, URINE NEGATIVE (NEGATIVE); METHAMPHETAMINES SCREEN, URINE NEGATIVE (NEGATIVE); OPIATE SCREEN, URINE NEGATIVE (NEGATIVE); OXYCODONE SCREEN, URINE POSITIVE (NEGATIVE); PROPOXYPHENE SCREEN, URINE NEGATIVE (NEGATIVE); THC CANNABINOID SCREEN, URINE NEGATIVE (NEGATIVE); TRICYCLIC ANTIDEPRESSANT,URINE NEGATIVE (NEGATIVE)
== END 2022-06-25 12:15 | disposition home or self-care (01) ==
LOC: ED 09:53
DX: R03.0 Elevated blood-pressure reading, without diagnosis of hypertension (principal)
CPT/HCPCS: 36415; 80053; 80306; 80307; 81003; 81025; 83690; 84443; 85025; 93005; 99283; G0480; 80320; 80329; 81001; 87086

== ENCOUNTER 2022-06-26 13:44 | Outpatient (CLI) | payer MEDICARE, MEDICAID ==
--- NOTE | 2022-06-29 09:22 | Mammography Report ---
BILATERAL DIGITAL SCREENING MAMMOGRAM 3D/2D: 06/26/2022 CLINICAL: Routine screening. Comparison is made to exams dated: 11/23/2019 mammogram, 10/19/2019 mammogram, 12/28/2013 mammogram, 11/28 mammogram, and 11/15/2006 mammogram - [facility]. There are scattered areas of fibroglandular density in both breasts (category b / 25%-50% glandular t issue). No significant masses, calcifications, or other findings are seen in either breast. There has been no significant interval change. IMPRESSION: NEGATIVE There is no mammographic evidence of malignancy. A 1 year screening mammogram is recommended. Based on the Tyrer Cuzick model (a risk assessment model) the patients lifetime risk is 12.2% and he r 10 year risk is 2.8%. According to the ACR, ACS, and NCCN guidelines, an annual breast MRI exam migel ng with mammogram is recommended if the patients lifetime risk is 20% or greater. This exam was interpreted at Station ID: [id number]. NOTE: For mammograms, a report in lay terms will be sent to the patient. Approximately 15% of breast malignancies will not be visualized mammographically. In the management of a palpable breast mass, a negative mammogram must not discourage biopsy of a clinically suspicious lesion. Electronically Signed By: Gera Christensen M.D., jr/esther:06/26/2022 14:14:22 letter sent: No_Letter ACR BI-RADS Category 1: Negative 3341F PARENCHYMAL PATTERN: (A) - The breast(s) demonstrate(s) scattered fibroglandular densities. BI-RADS CATEGORY: (1) - 1 Mammogram [id number] 1 year screening LATERALITY: (B)
== END 2022-06-26 13:45 | disposition home or self-care (01) ==
LOC: DI 13:44
PROVIDERS: ATTEND Nurse Practitioner
DX: Z12.31 Encounter for screening mammogram for malignant neoplasm of breast (principal)

== ENCOUNTER 2022-07-01 08:00 | Outpatient (CLI) | payer MEDICARE, MEDICAID ==
[2022-07-01 05:53] LABS: BASOPHILS % (AUTO) 0.6 %; EOSINOPHILS # (AUTO) 0.1 10^3/uL (0.0-0.7); HCT - HEMATOCRIT 42.3 % (37.0-47.0); HGB - HEMOGLOBIN 13.3 g/dL (12.0-16.0); LYMPHOCYTES # (AUTO) 1.9 10^3/uL (1.5-3.5); LYMPHOCYTES % (AUTO) 27.6 %; MEAN CORPUSCULAR HEMOGLOBIN 29.4 pg (27.0-31.0); MEAN CORPUSCULAR HGB CONC 31.4 g/dL (32.0-36.0); MEAN CORPUSCULAR VOLUME 93.6 fL (81.0-99.0); MEAN PLATELET VOLUME 9.1 fL (7.9-10.8); MONOCYTES # (AUTO) 0.6 10^3/uL (0.0-1.0); NEUTROPHILS # (AUTO) 4.3 10^3/uL (1.5-6.6); NEUTROPHILS % (AUTO) 61.4 %; PLT - PLATELET COUNT 288 10^3/uL (130-450); RED BLOOD COUNT 4.52 10^6/uL (4.20-5.40); RED CELL DISTRIBUTION WIDTH 12.7 % (12.0-15.0)
[2022-07-01 06:11] LABS: ALBUMIN 4.1 g/dL (3.2-5.5); ALBUMIN/GLOBULIN RATIO 1.2 (1.0-2.2); ALKALINE PHOSPHATASE 47 IU/L (42-121); ALT ALANINE AMINOTRANSFERASE 19 IU/L (10-60); AST ASPARTATE AMINOTRANSFERASE 17 IU/L (10-42); BILIRUBIN,TOTAL 0.2 mg/dL (0.2-1.0); BUN - BLOOD UREA NITROGEN 13 mg/dL (6-20); CALCIUM 9.7 mg/dL (8.5-10.3); CARBON DIOXIDE - CO2 31 mmol/L (21-32); CHLORIDE 104 mmol/L (101-111); CHOL/HDL RATIO 3.1 (<4.4); CHOLESTEROL 205 mg/dL; CREATININE 0.8 mg/dL (0.4-1.0); GFR - MDRD 76 (>89); GLUCOSE 116 mg/dL (70-100); HDL CHOLESTEROL 67 mg/dL; LDL CHOLESTEROL,CALCULATED 122 mg/dL; LDL/HDL RATIO 1.8 (<4.4); MAGNESIUM 2.2 mg/dL (1.7-2.8); POTASSIUM 4.6 mmol/L (3.5-5.0); SODIUM 142 mmol/L (135-145); TOTAL PROTEIN 7.4 g/dL (6.7-8.2); TRIGLYCERIDES 82 mg/dL; VLDL CHOLESTEROL 16 mg/dL
[2022-07-01 06:23] LABS: THYROID STIMULATING HORMONE 1.54 uIU/mL (0.34-5.60)
[2022-07-01 11:19] LABS: ESTIMATED AVERAGE GLUCOSE 128 mg/dL (70-100); HEMOGLOBIN A1c% 6.1 % (4.27-6.07)
== END 2022-07-01 23:59 | disposition home or self-care (01) ==
LOC: LAB.R 08:00
PROVIDERS: ATTEND Nurse Practitioner
DX: E87.1 Hypo-osmolality and hyponatremia (principal); R63.1 Polydipsia; E78.5 Hyperlipidemia, unspecified; E66.9 Obesity, unspecified; R73.9 Hyperglycemia, unspecified; R41.89 Other symptoms and signs involving cognitive functions and awareness; Z51.81 Encounter for therapeutic drug level monitoring; E83.42 Hypomagnesemia
CPT/HCPCS: 80053; 80061; 83036; 83721; 83735; 84443; 85025

== ENCOUNTER 2022-07-29 16:44 | Outpatient (CLI) | payer MEDICARE, MEDICAID ==
--- NOTE | 2022-07-29 18:48 | MRI Report ---
PROCEDURE: BRAIN WO INDICATIONS: MEMORY LOSS TECHNIQUE: Noncontrast axial T1 spin echo, axial T2 fast spin echo, sagittal and axial FLAIR, coronal T2 fast sp in echo, axial gradient echo, axial diffusion and ADC through the brain. COMPARISON: Prior head CT, 10/11/2020. Prior brain MRI, 10/19/2019 FINDINGS: Image quality: Diagnostic, with note made of motion artifact. CSF Spaces: Basal cisterns are patent. No extra-axial fluid collections. Ventricles are normal in size and shape. Brain: No intracranial masses or hemorrhage. Bear/white matter interface is normal. Brainstem appe ars normal. Diffusion-weighted images demonstrate no acute ischemic insult. No chronic ischemic ins ults. Normal intravascular flow voids are present. Focal T2 hyperintense lesions are again seen with in the white matter and are worst within the left occipital lobe. Skull and face: Calvarium has normal marrow signal. Orbits appear normal. Sinuses: Moderate mucosal thickening is seen within the left sphenoid sinus, with minimal mucosal th ickening seen elsewhere within the paranasal sinuses. No significant abnormal fluid can be seen withi n the mastoid air cells. IMPRESSION: No acute intracranial abnormality is identified. Focal T2 hyperintense lesions can be seen, which are worst within the left occipital lobe, which are similar to the 2020 MRI examination. These are nonspecific, although premature chronic small vessel i schemic change is felt most likely. Differential diagnosis includes a demyelinating process (includin g multiple sclerosis) yet this is considered to be less likely. Additional findings: Focal left sphenoid sinus disease . Reviewed by: Josr Escobar MD on 07/29/2022 5:46 PM [facility] Approved by: Josr Escobar MD on 07/29/2022 5:46 PM [facility] Station ID: [id number]
== END 2022-07-29 16:45 | disposition home or self-care (01) ==
LOC: DI 16:44
PROVIDERS: ATTEND Nurse Practitioner
DX: R41.3 Other amnesia (principal); R41.89 Other symptoms and signs involving cognitive functions and awareness; J32.3 Chronic sphenoidal sinusitis

== ENCOUNTER 2023-07-17 08:00 | Outpatient (CLI) | payer MEDICARE, MEDICAID ==
[2023-07-17 08:23] LABS: CHOL/HDL RATIO 3.9 (<4.4); CHOLESTEROL 178 mg/dL; HDL CHOLESTEROL 46 mg/dL; LDL CHOLESTEROL,CALCULATED 104 mg/dL; LDL/HDL RATIO 2.3 (<4.4); TRIGLYCERIDES 142 mg/dL (48-352); VLDL CHOLESTEROL 28 mg/dL
[2023-07-17 08:40] LABS: ESTIMATED AVERAGE GLUCOSE 134 mg/dL (70-100); HEMOGLOBIN A1c% 6.3 % (4.27-6.07)
== END 2023-07-17 23:59 | disposition home or self-care (01) ==
LOC: LAB.R 08:00
PROVIDERS: ATTEND Nurse Practitioner Psychiatric/Mental Health
DX: F32.9 Major depressive disorder, single episode, unspecified (principal)
CPT/HCPCS: 80061; 83036; 83721

== ENCOUNTER 2023-09-27 07:52 | Outpatient (CLI) | payer MEDICARE, MEDICAID ==
[2023-09-27 08:23] LABS: BILIRUBIN,URINE SMALL (NEGATIVE); GLUCOSE, URINE (UA) NEGATIVE (NEGATIVE); KETONES,URINE (UA) NEGATIVE (NEGATIVE); LEUKOCYTE ESTERASE, URINE TRACE (NEGATIVE); NITRITE,URINE NEGATIVE (NEGATIVE); OCCULT BLOOD,URINE NEGATIVE (NEGATIVE); PH,URINE 6.5 PH (5.0-7.5); PROTEIN,URINE NEGATIVE (NEGATIVE); UROBILINOGEN,URINE 0.2 (NORMAL) E.U./dL (NORMAL)
[2023-09-27 08:24] LABS: CLARITY,URINE CLEAR (CLEAR)
[2023-09-27 08:27] LABS: BASOPHILS % (AUTO) 0.5 %; EOSINOPHILS # (AUTO) 0.1 10^3/uL (0.0-0.7); EOSINOPHILS % (AUTO) 3.6 %; HCT - HEMATOCRIT 44.5 % (37.0-47.0); HGB - HEMOGLOBIN 13.7 g/dL (12.0-16.0); LYMPHOCYTES # (AUTO) 0.9 10^3/uL (1.5-3.5); LYMPHOCYTES % (AUTO) 23.4 %; MEAN CORPUSCULAR HEMOGLOBIN 28.1 pg (27.0-31.0); MEAN CORPUSCULAR HGB CONC 30.8 g/dL (32.0-36.0); MEAN CORPUSCULAR VOLUME 91.2 fL (81.0-99.0); MEAN PLATELET VOLUME 9.2 fL (7.9-10.8); MONOCYTES # (AUTO) 0.5 10^3/uL (0.0-1.0); MONOCYTES % (AUTO) 11.9 %; NEUTROPHILS # (AUTO) 2.4 10^3/uL (1.5-6.6); NEUTROPHILS % (AUTO) 60.6 %; PLT - PLATELET COUNT 235 10^3/uL (130-450); RED BLOOD COUNT 4.88 10^6/uL (4.20-5.40); RED CELL DISTRIBUTION WIDTH 12.7 % (12.0-15.0); WHITE BLOOD COUNT 3.9 x10^3/uL (4.8-10.8)
[2023-09-27 08:47] LABS: ALBUMIN 4.3 g/dL (3.2-5.5); ALBUMIN/GLOBULIN RATIO 1.6 (1.0-2.2); ALKALINE PHOSPHATASE 71 IU/L (42-121); ALT ALANINE AMINOTRANSFERASE 39 IU/L (10-60); AST ASPARTATE AMINOTRANSFERASE 30 IU/L (10-42); BILIRUBIN,TOTAL 0.5 mg/dL (0.2-1.0); BUN - BLOOD UREA NITROGEN 12 mg/dL (6-20); CARBON DIOXIDE - CO2 27 mmol/L (21-32); CHLORIDE 101 mmol/L (101-111); CHOL/HDL RATIO 3.9 (<4.4); CHOLESTEROL 185 mg/dL; CK- CREATINE KINASE 45 IU/L (30-223); CREATININE 1.1 mg/dL (0.6-1.3); CRP - C-REACTIVE PROTEIN < 0.5 mg/dL (<0.5); GFR - MDRD 53 (>89); GLUCOSE 121 mg/dL (74-104); HDL CHOLESTEROL 47 mg/dL; LDL CHOLESTEROL,CALCULATED 105 mg/dL; LDL/HDL RATIO 2.2 (<4.4); POTASSIUM 4.1 mmol/L (3.5-4.5); SODIUM 136 mmol/L (135-145); TRIGLYCERIDES 164 mg/dL (48-352); URIC ACID 5.1 mg/dL (2.3-6.6); VLDL CHOLESTEROL 33 mg/dL
[2023-09-27 08:58] LABS: THYROID STIMULATING HORMONE 1.45 uIU/mL (0.34-5.60)
[2023-09-27 12:14] LABS: ESTIMATED AVERAGE GLUCOSE 126 mg/dL (70-100)
[2023-09-28 02:08] LABS: HIV SCREEN 4TH GENERATION Non Reactive (Non Reactive)
[2023-09-28 05:12] LABS: CERULOPLASMIN 35.2 mg/dL (19.0-39.0); RPR Non Reactive (Non Reactive)
== END 2023-09-27 07:53 | disposition home or self-care (01) ==
LOC: LAB 07:52
PROVIDERS: ATTEND Nurse Practitioner
DX: F63.89 Other impulse disorders (principal); R63.1 Polydipsia; F06.2 Psychotic disorder with delusions due to known physiological condition; R41.89 Other symptoms and signs involving cognitive functions and awareness; E78.5 Hyperlipidemia, unspecified; R73.03 Prediabetes; R00.0 Tachycardia, unspecified
CPT/HCPCS: 36415; 80053; 80061; 81003; 82175; 82390; 82550; 82607; 83036; 83655; 83825; 84425; 84439; 84443; 84550; 85025; 86140; 86592; G0475; 83721; 87389